=== PATIENT | male | born 1970 | race Caucasian/White ===

== ENCOUNTER 2018-06-23 12:34 | Inpatient (IN) ==
[2018-06-23 12:38] VITALS: BMI 32.8
[2018-06-23] MEDS ORDERED: ZOFRAN INJ 4 MG VIAL ONE ×2 (13:04→14:51)
[2018-06-23 13:07] LABS: BASOPHILS # (AUTO) 0.1 X10^3/uL (0.0-0.1); BASOPHILS % (AUTO) 0.7 % (0.2-1.0); EOSINOPHILS % (AUTO) 0.1 % (0.9-2.9); HEMATOCRIT 39.5 % (42.0-54.0); HEMOGLOBIN 13.5 g/dL (13.5-18.0); LYMPHOCYTES # (AUTO) 2.3 X10^3/uL (1.3-2.9); LYMPHOCYTES % (AUTO) 12.7 % (21.0-51.0); MEAN CORPUSCULAR HEMOGLOBIN 34.7 pg (27.0-34.0); MEAN CORPUSCULAR HGB CONC 34.2 g/dL (33.0-35.0); MEAN CORPUSCULAR VOLUME 101.3 fL (80.0-100.0); MEAN PLATELET VOLUME 8.9 fL (7.4-11.0); MONOCYTES # (AUTO) 0.6 x10^3/uL (0.3-0.8); MONOCYTES % (AUTO) 3.1 % (0.0-13.0); NEUTROPHILS # (AUTO) 15.2 x10^3/uL (2.2-4.8); NEUTROPHILS % (AUTO) 83.4 % (42.0-75.0); PLATELET COUNT 386 X10^3/uL (150.0-450.0); RED CELL DISTRIBUTION WIDTH 15.2 % (11.6-16.5); WHITE BLOOD COUNT 18.2 X10^3/uL (3.6-10.0)
[2018-06-23] MEDS ORDERED: NS 1000 ML 1,000 ML ONE (13:09)
[2018-06-23] MEDS ORDERED: NS 1000 ML 1,000 ML IV ONE (13:11)
[2018-06-23] MEDS: ZOFRAN INJ 4 MG VIAL IVP ONE (13:12)
--- NOTE | 2018-06-23 13:14 | RAD ---
Examination: Portable AP chest History: Chest pain Comparison 09/11/2012 Findings: Continued normal heart size with clear lungs and pleural spaces. Impression: No change; no acute findings. Reported By:
[2018-06-23 13:30] LABS: ALANINE AMINOTRANSFERASE 50 Units/L (12-78); ALBUMIN 3.1 g/dL (3.4-5.0); ALKALINE PHOSPHATASE 117 Units/L (46-116); AMYLASE 94 Units/L (25-115); ASPARTATE AMINO TRANSFERASE 29 Units/L (15-37); BLOOD UREA NITROGEN 28 mg/dL (7-18); CALCIUM 10.6 mg/dL (8.5-10.1); CHLORIDE 95 mmol/L (98-107); CKMB % 0.9 % (<4); COR CA(FOR HYPOALB) 11.3 mg/dL (8.5-10.1); COR NA(FOR HYPERGLY) 144 mmol/L (136-145); CREATINE KINASE 117 Units/L (39-308); CREATINE KINASE MB < 1.0 ng/mL (0-4.0); CREATININE 2.19 mg/dL (0.70-1.30); LIPASE 587 Units/L (73-393); SODIUM 137 mmol/L (136-145); TOTAL PROTEIN 8.5 g/dL (6.4-8.2); TROPONIN I < 0.02 ng/mL (0-1.5); eGFR NON BLACK RACES 35 (>60)
[2018-06-23 13:38] LABS: CARBON DIOXIDE 8.2 mmol/L (21-32)
[2018-06-23] MEDS ORDERED: SODIUM BICARBONATE 8.4% INJ ADULT IVP ONE (14:13)
--- NOTE | 2018-06-23 14:13 | DR.N/VMALE ---
HPI Time Seen Time seen: 12:55 Primary Care Physician Primary Care Physician: Rich ADDISON Complaints Chief Complaint Doctors Comments: Long standing, intermittent Rt. sided chest pain. It has worsened in past few (4) days. It is dull and sometimes sharp. It radiates through his upper back and RUQ. There is nausea and vomiting. It is exacerbated by assuming the supine position. It is not affected by meals. Chief Complaint:: PT. C/O RIGHT SIDED CHEST PAIN THAT RADIATES THROUGH TO HIS BACK, RUQ PAIN AND TENDERNESS. PT. ALSO C/O NAUSEA/VOMITING. PT. STATES THIS PAIN HAS BEEN GOING ON FOR A YEAR BUT IS MORE SEVERE. PT. ALSO C/O WEAKNESS. Source History Provided: Family Member Mode of Arrival Mode of Arrival: Wheelchair Timing Onset of Chief Complaint: 06/20/18 Context Onset: Spontaneous Recent: denies Travel and Contact Exposure Possible Ingestion: denies Unknown History of: Diabetes Associated Signs and Symptoms Abdominal Pain Quality: Aching and Sharp PMH PMH Past Medical History: Yes Past Medical History: Diabetes, GERD and Hypertension Past Surgical History: Yes Surgical History: Other Past Surgical History Comment: BACK SURGERY X 2 Family History History of Family Medical Conditions: Yes Family Medical History: Diabetes Mellitus, Cancer, [place], Coronary Artery Disease and Hypertension Social History Does patient currently use any type of tobacco product: No Have you used tobacco products in the last 12 months: No Type of Tobacco Use: None Does any household member use tobacco: No Alcohol Use: Occasionally Do you use any recreational Drugs:: No Lives With: Alone Lives Where: Home infectious screening In the last 2 months have you had wt loss of >10#?: NO Have you had fever, night sweats or hemotysis?: No Have you traveled outside the country in the last 6 months?: No Isolation: Standard ROS Review of Systems Constitutional: No Symptoms Reported Eyes: No Symptoms Reported ENTM: No Symptoms Reported Respiratoy: No Symptoms Reported Cardiovascular: No Symptoms Reported Gastrointestinal/Abdominal: Abdominal Pain (RUQ) and Nausea Genitourinary: No Symptoms Reported Neurological: No Symptoms Reported Musculoskeletal: Chest wall (Rt. side) Integumentary: No Symptoms Reported Hematologic/Lymphatic: No Symptoms Reported Endocrine: No Symptoms Reported Psychiatric: No Symptoms Reported All Other Systems: Reviewed and Negative PE Vital Signs Vitals: Temperature 97.9 F Pulse Rate [Left Brachial] 121 Pulse Rate 126 Respiratory Rate 22 Blood Pressure [Left Arm] 150/90 Blood Pressure 147/97 O2 Sat by Pulse Oximetry 100 General Limitations: Physical Limitation (can't assume supine position ) General Appearance: Alert, Anxious and In Distress (pain related) Head Head Exam: Normal Inspection Eyes Eye exam: Normal Appearance ENT ENT Exam: Normal Exam Neck Neck Exam: Normal Inspection Chest Chest Inspection: Normal Inspection, Symmetric Chest Wall Rise and Tenderness ( Medial aspect of Rt. lower chest.) Respiratory Respiratory Exam: Normal Lung Sounds Bilat Cardiovascular Cardiovascular Exam: Regular Rate, Normal Rhythm, +S1 and +S2 Abdominal Exam Abdominal Exam: Normal Inspection, Normal Bowel Sounds, Soft and Tenderness (RUQ ) Abdominal Tenderness: RUQ Rectal Rectal Exam: Deferred Exam: Male: Deferred Extremities Extremities Exam: Normal Inspection Back Back Exam: Normal Inspection Neurologic Neurological Exam: Alert and Oriented X3 Psychiatric Psychiatric Exam: Normal Affect Skin Skin Exam: Warm and Dry MDM Differential Diagnosis Differential Diagnosis: Considerations may Include:: Diabetes/DKA COURSE Reevaluation 1st: Improved ROR Labs Reviewed Result Diagrams: 06/23/18 12:57 06/23/18 18:55 Laboratory: WBC 18.2 X10^3/uL (3.6-10.0) H 06/23/18 12:57 RBC 3.90 X10^6/uL (4.7-6.0) L 06/23/18 12:57 Hgb 13.5 g/dL (13.5-18.0) 06/23/18 12:57 Hct 39.5 % (42.0-54.0) L 06/23/18 12:57 MCV 101.3 fL (80.0-100.0) H 06/23/18 12:57 MCH 34.7 pg (27.0-34.0) H 06/23/18 12:57 MCHC 34.2 g/dL (33.0-35.0) 06/23/18 12:57 RDW 15.2 % (11.6-16.5) 06/23/18 12:57 Plt Count 386 X10^3/uL (150.0-450.0) 06/23/18 12:57 MPV 8.9 fL (7.4-11.0) 06/23/18 12:57 Neut % (Auto) 83.4 % (42.0-75.0) H 06/23/18 12:57 Lymph % (Auto) 12.7 % (21.0-51.0) L 06/23/18 12:57 [place] % (Auto) 3.1 % (0.0-13.0) 06/23/18 12:57 Eos % (Auto) 0.1 % (0.9-2.9) L 06/23/18 12:57 Baso % (Auto) 0.7 % (0.2-1.0) 06/23/18 12:57 Neut # (Auto) 15.2 x10^3/uL (2.2-4.8) H 06/23/18 12:57 Lymph # (Auto) 2.3 X10^3/uL (1.3-2.9) 06/23/18 12:57 [place] # (Auto) 0.6 x10^3/uL (0.3-0.8) 06/23/18 12:57 Eos # (Auto) 0.0 x10^3/uL (0.0-0.2) 06/23/18 12:57 Baso # (Auto) 0.1 X10^3/uL (0.0-0.1) 06/23/18 12:57 Absolute Nucleated RBC 0.0 /100WBC 06/23/18 12:57 INR Target Range - 06/23/18 12:57 INR 0.98 (0.8-1.3) 06/23/18 12:57 APTT 25.7 SECONDS (22.9-36.5) 06/23/18 12:57 PTT Comment - 06/23/18 12:57 Sample Site rr 06/23/18 14:13 ABG pH 7.260 (7.35-7.45) L 06/23/18 14:13 ABG pCO2 16.0 mmHg (35.0-45.0) L* 06/23/18 14:13 ABG pO2 121.0 mmHg (80.0-100.0) H 06/23/18 14:13 ABG HCO3 7.2 mmol/L (22-26) L* 06/23/18 14:13 ABG O2 Saturation 98.0 % (90-100) 06/23/18 14:13 ABG Base Excess -17.5 mmol/L (-2.0-2.0) L 06/23/18 14:13 James Test pos 06/23/18 14:13 A-a Gradient 9.0 mmHg 06/23/18 14:13 FiO2 21.000 06/23/18 14:13 Blood Gas Comments pt marina abg well llj 06/23/18 14:13 Sodium 137 mmol/L (136-145) 06/23/18 12:57 Corrected Sodium 144 mmol/L (136-145) 06/23/18 12:57 Potassium 4.1 mmol/L (3.5-5.1) 06/23/18 12:57 Chloride 95 mmol/L (98-107) L 06/23/18 12:57 Carbon Dioxide 8.2 mmol/L (21-32) L* 06/23/18 12:57 BUN 28 mg/dL (7-18) H 06/23/18 12:57 Creatinine 2.19 mg/dL (0.70-1.30) H 06/23/18 12:57 Est GFR (MDRD) Af Amer 42 (>60) L 06/23/18 12:57 Est GFR (MDRD) Non-Af 35 (>60) L 06/23/18 12:57 Glucose 477 mg/dL (65-99) H 06/23/18 18:55 POC Glucose (mg/dL) 425 mg/dL (65-99) H* 06/23/18 18:44 Lactic Acid 1.7 mmol/L (0.4-2.0) 06/23/18 15:17 Calcium 10.6 mg/dL (8.5-10.1) H 06/23/18 12:57 Corrected Calcium 11.3 mg/dL (8.5-10.1) H 06/23/18 12:57 Total Bilirubin 0.50 mg/dL (0.2-1.0) 06/23/18 12:57 AST 29 Units/L (15-37) 06/23/18 12:57 ALT 50 Units/L (12-78) 06/23/18 12:57 Alkaline Phosphatase 117 Units/L (46-116) H 06/23/18 12:57 Creatine Kinase 117 Units/L (39-308) 06/23/18 12:57 CK-MB (CK-2) < 1.0 ng/mL (0-4.0) 06/23/18 12:57 CK/CKMB % Calc 0.9 % (<4) 06/23/18 12:57 Troponin I < 0.02 ng/mL (0-1.5) 06/23/18 12:57 Total Protein 8.5 g/dL (6.4-8.2) H 06/23/18 12:57 Albumin 3.1 g/dL (3.4-5.0) L 06/23/18 12:57 Globulin 5.4 g/dL (2.5-4.5) H 06/23/18 12:57 Albumin/Globulin Ratio 0.6 Ratio (1.1-2.1) L 06/23/18 12:57 Amylase 94 Units/L (25-115) 06/23/18 12:57 Lipase 587 Units/L (73-393) H 06/23/18 12:57 Specimen Type Clean catch urine 06/23/18 15:12 Urine Color Yellow (YELLOW) 06/23/18 15:12 Urine Appearance Slightly hazy (CLEAR) 06/23/18 15:12 Urine pH 6.0 (5.0 - 8.0) 06/23/18 15:12 Ur Specific [place] 1.015 (1.000-1.030) 06/23/18 15:12 Urine Protein 4+ (NEGATIVE) 06/23/18 15:12 Urine Glucose (UA) 3+ (NEGATIVE) 06/23/18 15:12 Urine Ketones 4+ (NEGATIVE) 06/23/18 15:12 Urine Occult Blood 2+ (NEGATIVE) 06/23/18 15:12 Urine Nitrite Negative (NEGATIVE) 06/23/18 15:12 Urine Bilirubin 1+ (NEGATIVE) 06/23/18 15:12 Urine Urobilinogen Normal (NORMAL) 06/23/18 15:12 Ur Leukocyte Esterase Negative (NEGATIVE) 06/23/18 15:12 Urine RBC 0-2 /HPF (NONE SEEN) 06/23/18 15:12 Urine WBC 0-2 /HPF (NONE SEEN) 06/23/18 15:12 Ur Squamous Epith Cells Rare /HPF (NEGATIVE) 06/23/18 15:12 Urine Bacteria Negative /HPF (NEGATIVE) 06/23/18 15:12 Hyaline Casts Moderate /LPF (NEGATIVE) 06/23/18 15:12 Granular Casts Rare /LPF (NEGATIVE) 06/23/18 15:12 Ur Culture Indicated? No/not indicated 06/23/18 15:12 Acetone, Semi-Quant Moderate (NEGATIVE) H 06/23/18 12:57 H. pylori IgG Antibody Negative (NEGATIVE) 06/23/18 12:57 EKG Rate: 131 [place]: Normal Rhythm: ST Block: None Hypertrophy: None ST: Normal Diagnosis Discharge Problem: Abdominal pain, Nausea & vomiting, DKA (diabetic ketoacidoses)
[2018-06-23] MEDS ORDERED: SODIUM BICARBONATE 8.4% INJ ADULT ONE (14:24)
[2018-06-23 14:33] LABS: ABG BASE EXCESS -17.5 mmol/L (-2.0-2.0)
--- NOTE | 2018-06-23 14:34 | CT ---
History: Right flank pain and nausea and vomiting Study: CT abdomen and pelvis without contrast. Sagittal and coronal reformations were provided. Comparison: None Findings: There is a small hiatal hernia. The liver and spleen and pancreas and adrenal glands are un remarkable. There is no hydronephrosis or renal mass or renal calculus demonstrated. The pancreas is atrophic. No ureteral calculus is demonstrated. The gallbladder is contracted. There is no biliary di latation. There is no ascites or adenopathy or bowel distention or inflammatory changes. The urinary bladder is unremarkable. No hernia is demonstrated. There has been a total lower lumbar laminectomy a nd anterior and L4-5 and L5-S1 fusion in anatomical alignment. Impression: No acute disease of the abdomen or pelvis is demonstrated Reported By:
[2018-06-23 14:35] LABS: ABG ALLEN TEST pos; ABG HCO3 7.2 mmol/L (22-26)
[2018-06-23] MEDS ORDERED: ZOFRAN INJ 4 MG VIAL IVP ONE (14:53)
[2018-06-23] MEDS ORDERED: ZOSYN VIAL 2.25 GRAMS IV STA (15:01)
[2018-06-23 15:32] LABS: BILIRUBIN,URINE 1+ (NEGATIVE); BLOOD/HEMOGLOBIN,URINE 2+ (NEGATIVE); GLUCOSE, URINE 3+ (NEGATIVE); KETONES,URINE 4+ (NEGATIVE); LEUKOCYTE ESTERASE ,URINE NEGATIVE (NEGATIVE); NITRITES,URINE NEGATIVE (NEGATIVE); PROTEIN,URINE 4+ (NEGATIVE); UROBILINOGEN,URINE NORMAL (NORMAL)
[2018-06-23 15:43] LABS: APPEARANCE,URINE SLIGHTLY HAZY (CLEAR); COLOR,URINE YELLOW (YELLOW)
[2018-06-23 15:44] LABS: BACTERIA,URINE NEGATIVE /HPF (NEGATIVE); GRANULAR CASTS,URINE RARE /LPF (NEGATIVE); HYALINE CASTS, URINE MODERATE /LPF (NEGATIVE); RBC,URINE 0-2 /HPF (NONE SEEN); SQUAMOUS EPITHELIAL CELL,UR RARE /HPF (NEGATIVE)
[2018-06-23] MEDS ORDERED: SODIUM BICARBONATE 8.4% INJ ADULT 50 ML in NS 1/2 500 ML IV 500 ML IV ONE (16:00)
--- NOTE | 2018-06-23 16:17 | CT ---
CT chest without contrast Indication: Chest pain. Technique: Noncontrast multiplanar and 3D reconstructed images with MIP imaging are reviewed Findings: Comparison no cross-sectional comparisons are available. The aortic arch and great vessels demonstrate minimal atherosclerosis. The mediastinum is negative for adenopathy. There is esophageal wall thickening involving the mid and distal esophagus correlate with reflux related changes. The gastric lumen is mildly distended. The lungs are well expanded with no focal infiltrate effusion or pneumothorax. There is no venous con gestion present. The exam is negative for aneurysmal changes. There is no acute pathology of the [place]. Impression: 1. Negative exam for active cardiopulmonary pathology . 2. Thickened lumen of the esophag us. Correlate with esophagitis and/or reflux related changes. Small hiatal hernia is present. Reported By:
[2018-06-23] MEDS ORDERED: DILAUDID INJ IVP ONE (16:18)
[2018-06-23] MEDS ORDERED: DILAUDID INJ ONE (16:20)
[2018-06-23] MEDS ORDERED: HumuLIN R SC PRN (17:33)
[2018-06-23] MEDS ORDERED: LR 1000 ML IV 1,000 ML IV SCH (18:00)
[2018-06-23] MEDS: COLACE CAP 100 MG PO SCH (20:50)
[2018-06-23] MEDS: KLONOPIN TAB 1 MG PO SCH (20:51)
[2018-06-23] MEDS: SNACK - Diabetic Appropriate PO SCH (20:51)
[2018-06-23] MEDS: COREG TAB 25 MG PO SCH (20:51)
[2018-06-23] MEDS ORDERED: HumuLIN R SUBCUT PRN (20:53)
[2018-06-23] MEDS ORDERED: D5 1/2 NS + KCL 20 MEQ/L 1,000 ML IV PRN (20:53)
[2018-06-23] MEDS ORDERED: SODIUM BICARBONATE 8.4% INJ ADULT IVP PRN (20:53)
[2018-06-23] MEDS ORDERED: MAGNESIUM SULFATE 1 GRAM/100 mL PREMIX 2 GM/200 ML BAG IV PRN (20:53)
[2018-06-23] MEDS: DILAUDID INJ IVP PRN (20:53)
[2018-06-23] MEDS ORDERED: D50W ABBOJECT SYR IV PRN (20:53)
[2018-06-23] MEDS ORDERED: NS + KCL 40 MEQ/L 1,000 ML IV PRN (20:53)
[2018-06-23] MEDS ORDERED: HumuLIN R IV PRN (20:53)
[2018-06-23 21:17] LABS: MAGNESIUM 1.7 mg/dL (1.7-2.9); PHOSPHORUS 5.5 mg/dL (2.6-4.7)
[2018-06-23 21:18] LABS: HEMOGLOBIN A1C 7.5 %
[2018-06-23] MEDS: MAG-OX TAB PO SCH (21:50)
[2018-06-23] MEDS: ZOSYN VIAL 2.25 GRAMS 2.25 G in NS 100 ML IV + SPIKE MINIBAG* 100 ML IV SCH (21:50)
[2018-06-23 21:54] LABS: ABG BASE EXCESS -15.1 mmol/L (-2.0-2.0)
[2018-06-23 21:55] LABS: ABG ALLEN TEST POS; ABG HCO3 10.9 mmol/L (22-26)
[2018-06-23] MEDS ORDERED: HumuLIN 70/30 (NovoLIN 70/30) SC SCH (22:00)
[2018-06-23] MEDS: NS 1000 ML 1,000 ML IV PRN ×2 (22:07→23:01)
[2018-06-23] MEDS: MAGNESIUM SULFATE 1 GRAM/100 mL PREMIX 1 GM/100 ML BAG IV PRN (22:15)
[2018-06-23 23:05] LABS: CALCIUM 8.9 mg/dL (8.5-10.1); CREATININE 3.32 mg/dL (0.70-1.30)
[2018-06-23 23:11] LABS: CARBON DIOXIDE 11.5 mmol/L (21-32)
[2018-06-23] MEDS ORDERED: NS + KCL 20 MEQ/L 1,000 ML IV SCH (23:45)
[2018-06-24] MEDS: NS 1000 ML 1,000 ML IV PRN ×8 (00:05→08:08)
[2018-06-24] MEDS: DILAUDID INJ IVP PRN ×2 (00:51→05:23)
[2018-06-24] MEDS ORDERED: NS IRRIGATION 500 ML IR ONE (01:56)
[2018-06-24] MEDS: NS 1000 ML 1,000 ML IV SCH ×3 (02:20→15:46)
[2018-06-24 02:49] LABS: CALCIUM 7.8 mg/dL (8.5-10.1); CARBON DIOXIDE 18.1 mmol/L (21-32); CREATININE 3.43 mg/dL (0.70-1.30)
[2018-06-24] MEDS: K-RIDER 10 MEQ/NS 100 ML 10 MEQ/100 ML BAG IV PRN ×5 (03:27→21:05)
[2018-06-24 05:29] LABS: ABG BASE EXCESS -10.9 mmol/L (-2.0-2.0)
[2018-06-24 05:30] LABS: ABG ALLEN TEST POS; ABG HCO3 17.5 mmol/L (22-26)
[2018-06-24] MEDS: ZOSYN VIAL 2.25 GRAMS 2.25 G in NS 100 ML IV + SPIKE MINIBAG* 100 ML IV SCH ×3 (06:11→21:09)
[2018-06-24] MEDS: MAG-OX TAB PO SCH ×3 (06:11→21:09)
[2018-06-24 06:25] LABS: BASOPHILS # (AUTO) 0.1 X10^3/uL (0.0-0.1); BASOPHILS % (AUTO) 0.7 % (0.2-1.0); EOSINOPHILS # (AUTO) 0.1 x10^3/uL (0.0-0.2); EOSINOPHILS % (AUTO) 0.8 % (0.9-2.9); HEMATOCRIT 29.2 % (42.0-54.0); LYMPHOCYTES # (AUTO) 1.3 X10^3/uL (1.3-2.9); LYMPHOCYTES % (AUTO) 8.7 % (21.0-51.0); MEAN CORPUSCULAR HEMOGLOBIN 34.1 pg (27.0-34.0); MEAN CORPUSCULAR HGB CONC 33.9 g/dL (33.0-35.0); MEAN CORPUSCULAR VOLUME 100.7 fL (80.0-100.0); MEAN PLATELET VOLUME 8.6 fL (7.4-11.0); MONOCYTES % (AUTO) 7.3 % (0.0-13.0); NEUTROPHILS # (AUTO) 11.9 x10^3/uL (2.2-4.8); NEUTROPHILS % (AUTO) 82.5 % (42.0-75.0); PLATELET COUNT 264 X10^3/uL (150.0-450.0); RED CELL DISTRIBUTION WIDTH 15.4 % (11.6-16.5); WHITE BLOOD COUNT 14.5 X10^3/uL (3.6-10.0)
[2018-06-24 06:27] LABS: HEMOGLOBIN 9.9 g/dL (13.5-18.0)
[2018-06-24 06:43] LABS: ALBUMIN 2.4 g/dL (3.4-5.0); CALCIUM 7.1 mg/dL (8.5-10.1); CARBON DIOXIDE 17.7 mmol/L (21-32); COR CA(FOR HYPOALB) 8.4 mg/dL (8.5-10.1); CREATININE 3.27 mg/dL (0.70-1.30); MAGNESIUM 1.6 mg/dL (1.7-2.9); PHOSPHORUS 2.1 mg/dL (2.6-4.7); TOTAL PROTEIN 6.2 g/dL (6.4-8.2)
[2018-06-24] MEDS: MILK OF MAGNESIA PO SCH (08:00)
[2018-06-24] MEDS: SYNTHROID 25 mcg TAB PO SCH (08:03)
[2018-06-24] MEDS: PROTONIX TAB 40 MG PO SCH (08:03)
--- NOTE | 2018-06-24 08:17 | US ---
History: Right flank pain with nausea and vomiting Study: Ultrasound of the right upper quadrant of the abdomen Comparison: CT abdomen and pelvis dated June 23 Findings: The gallbladder is normal in size without wall thickening or stone or sludge. The common he patic duct measures 3.4 mm diameter. There is fatty infiltration of the liver. No focal liver mass or enlargement is demonstrated. The right kidney measures 10 x 7 x 6 cm with cortical thickness of 1.7 cm. There is no right hydronep hrosis or mass. No free fluid is demonstrated. The pancreas is obscured by gas. Impression: Negative Reported By:
[2018-06-24] MEDS: MAGNESIUM SULFATE 1 GRAM/100 mL PREMIX 1 GM/100 ML BAG IV PRN (08:26)
[2018-06-24] MEDS: ZOCOR TAB 20 MG PO SCH (08:26)
[2018-06-24] MEDS ORDERED: NS 1/2 1000 ML IV 1,000 ML IV ONE (09:38)
[2018-06-24] MEDS ORDERED: LASIX ONE (09:49)
[2018-06-24] MEDS ORDERED: LASIX IVP ONE (09:50)
[2018-06-24] MEDS ORDERED: NORCO 10/325 TAB ONE (10:01)
[2018-06-24] MEDS: COREG TAB 25 MG PO SCH ×2 (10:05→20:34)
[2018-06-24] MEDS ORDERED: NS 1/2 1000 ML IV 1,000 ML with SODIUM BICARBONATE 8.4% INJ ADULT 100 ML IV ONE ×2 (10:05)
[2018-06-24] MEDS: NORCO 10/325 TAB PO PRN ×3 (10:06→23:15)
[2018-06-24] MEDS: NORVASC TAB 10 MG PO SCH (10:18)
[2018-06-24] MEDS: ZESTRIL TAB 40 MG PO SCH (10:18)
[2018-06-24 10:39] LABS: CALCIUM 6.6 mg/dL (8.5-10.1); CREATININE 3.24 mg/dL (0.70-1.30)
[2018-06-24 10:45] LABS: CARBON DIOXIDE 14.4 mmol/L (21-32)
[2018-06-24] MEDS ORDERED: ZOFRAN INJ 4 MG VIAL ONE (13:16)
[2018-06-24] MEDS: ZOFRAN INJ 4 MG VIAL IVP ONE (13:32)
[2018-06-24 14:16] LABS: CALCIUM 6.5 mg/dL (8.5-10.1)
[2018-06-24] MEDS: PHENERGAN INJ 25 MG IVP PRN ×2 (14:34→21:05)
[2018-06-24 18:31] LABS: CALCIUM 6.5 mg/dL (8.5-10.1); CARBON DIOXIDE 16.6 mmol/L (21-32); CREATININE 2.8 mg/dL (0.70-1.30)
[2018-06-24] MEDS: SNACK - Diabetic Appropriate PO SCH (20:34)
[2018-06-24] MEDS: COLACE CAP 100 MG PO SCH (20:34)
[2018-06-24] MEDS: KLONOPIN TAB 1 MG PO SCH (20:35)
[2018-06-25] MEDS: NS 1000 ML 1,000 ML IV SCH ×5 (00:14→16:58)
[2018-06-25 01:29] LABS: CALCIUM 6.4 mg/dL (8.5-10.1); CREATININE 2.75 mg/dL (0.70-1.30)
[2018-06-25 01:30] LABS: CARBON DIOXIDE 12.7 mmol/L (21-32)
[2018-06-25] MEDS: ZOSYN VIAL 2.25 GRAMS 2.25 G in NS 100 ML IV + SPIKE MINIBAG* 100 ML IV SCH (05:22)
[2018-06-25] MEDS: NORCO 10/325 TAB PO PRN ×2 (05:22→19:25)
[2018-06-25] MEDS: MAG-OX TAB PO SCH ×3 (05:22→21:13)
[2018-06-25] MEDS: HumuLIN R SC PRN ×4 (05:23→22:00)
[2018-06-25 05:49] LABS: ABG BASE EXCESS -16.1 mmol/L (-2.0-2.0)
[2018-06-25 05:51] LABS: ABG ALLEN TEST POS; ABG HCO3 9.6 mmol/L (22-26)
[2018-06-25] MEDS: PHENERGAN INJ 25 MG IVP PRN ×2 (06:29→20:17)
[2018-06-25 06:36] LABS: BASOPHILS # (AUTO) 0.1 X10^3/uL (0.0-0.1); BASOPHILS % (AUTO) 0.5 % (0.2-1.0); EOSINOPHILS # (AUTO) 0.2 x10^3/uL (0.0-0.2); HEMATOCRIT 30.5 % (42.0-54.0); HEMOGLOBIN 10.3 g/dL (13.5-18.0); LYMPHOCYTES # (AUTO) 1.5 X10^3/uL (1.3-2.9); LYMPHOCYTES % (AUTO) 10.1 % (21.0-51.0); MEAN CORPUSCULAR HEMOGLOBIN 34.3 pg (27.0-34.0); MEAN CORPUSCULAR HGB CONC 33.9 g/dL (33.0-35.0); MEAN CORPUSCULAR VOLUME 101.4 fL (80.0-100.0); MEAN PLATELET VOLUME 8.9 fL (7.4-11.0); MONOCYTES # (AUTO) 0.9 x10^3/uL (0.3-0.8); MONOCYTES % (AUTO) 5.9 % (0.0-13.0); NEUTROPHILS # (AUTO) 12.4 x10^3/uL (2.2-4.8); NEUTROPHILS % (AUTO) 82.5 % (42.0-75.0); PLATELET COUNT 228 X10^3/uL (150.0-450.0); RED CELL DISTRIBUTION WIDTH 15.6 % (11.6-16.5); WHITE BLOOD COUNT 15.1 X10^3/uL (3.6-10.0)
[2018-06-25 06:52] LABS: CALCIUM 6.7 mg/dL (8.5-10.1); COR CA(FOR HYPOALB) 8.3 mg/dL (8.5-10.1); CREATININE 2.67 mg/dL (0.70-1.30); TOTAL PROTEIN 6.2 g/dL (6.4-8.2)
[2018-06-25 06:58] LABS: CARBON DIOXIDE 11.2 mmol/L (21-32)
[2018-06-25 07:05] LABS: MAGNESIUM 1.6 mg/dL (1.7-2.9); PHOSPHORUS 2.5 mg/dL (2.6-4.7)
[2018-06-25 07:13] LABS: AMYLASE 27 Units/L (25-115); LIPASE 87 Units/L (73-393)
[2018-06-25] MEDS ORDERED: SODIUM BICARBONATE 8.4% INJ ADULT IVP ONE (08:00)
[2018-06-25] MEDS: COREG TAB 25 MG PO SCH ×2 (08:10→21:13)
[2018-06-25] MEDS: SYNTHROID 25 mcg TAB PO SCH (08:10)
[2018-06-25] MEDS: NORVASC TAB 10 MG PO SCH (08:11)
[2018-06-25] MEDS: ZOCOR TAB 20 MG PO SCH (08:11)
[2018-06-25] MEDS: PROTONIX TAB 40 MG PO SCH (08:11)
[2018-06-25] MEDS: ZESTRIL TAB 40 MG PO SCH (08:12)
[2018-06-25] MEDS: MILK OF MAGNESIA PO SCH ×2 (10:22→18:00)
[2018-06-25] MEDS ORDERED: LASIX IVP ONE (13:34)
[2018-06-25] MEDS: COLACE CAP 100 MG PO SCH (21:13)
[2018-06-25] MEDS: KLONOPIN TAB 1 MG PO SCH (21:14)
[2018-06-26] MEDS: NS 1000 ML 1,000 ML IV SCH ×6 (00:36→22:26)
[2018-06-26] MEDS: HumuLIN R SC PRN ×4 (02:09→22:24)
[2018-06-26 05:47] LABS: ABG ALLEN TEST POS; ABG BASE EXCESS -5.1 mmol/L (-2.0-2.0); ABG HCO3 19.9 mmol/L (22-26)
[2018-06-26] MEDS: SYNTHROID 25 mcg TAB PO SCH (06:07)
[2018-06-26] MEDS: MAG-OX TAB PO SCH ×3 (06:07→22:25)
[2018-06-26] MEDS: COREG TAB 25 MG PO SCH ×2 (08:32→22:25)
[2018-06-26] MEDS: NORVASC TAB 10 MG PO SCH (08:32)
[2018-06-26] MEDS: PROTONIX TAB 40 MG PO SCH (08:32)
[2018-06-26] MEDS: MILK OF MAGNESIA PO SCH (08:32)
[2018-06-26] MEDS: PHENERGAN INJ 25 MG IVP PRN ×2 (09:05→15:22)
[2018-06-26 09:16] LABS: BASOPHILS # (AUTO) 0.1 X10^3/uL (0.0-0.1); BASOPHILS % (AUTO) 0.6 % (0.2-1.0); EOSINOPHILS # (AUTO) 0.5 x10^3/uL (0.0-0.2); EOSINOPHILS % (AUTO) 5.3 % (0.9-2.9); HEMOGLOBIN 9.1 g/dL (13.5-18.0); LYMPHOCYTES # (AUTO) 1.4 X10^3/uL (1.3-2.9); MEAN CORPUSCULAR HEMOGLOBIN 34.7 pg (27.0-34.0); MEAN CORPUSCULAR HGB CONC 35.2 g/dL (33.0-35.0); MEAN CORPUSCULAR VOLUME 98.7 fL (80.0-100.0); MEAN PLATELET VOLUME 9.2 fL (7.4-11.0); MONOCYTES # (AUTO) 0.7 x10^3/uL (0.3-0.8); MONOCYTES % (AUTO) 6.7 % (0.0-13.0); NEUTROPHILS # (AUTO) 7.2 x10^3/uL (2.2-4.8); NEUTROPHILS % (AUTO) 73.4 % (42.0-75.0); PLATELET COUNT 227 X10^3/uL (150.0-450.0); RED BLOOD COUNT 2.63 X10^6/uL (4.7-6.0); RED CELL DISTRIBUTION WIDTH 15.5 % (11.6-16.5); WHITE BLOOD COUNT 9.8 X10^3/uL (3.6-10.0)
[2018-06-26 09:21] LABS: ALBUMIN 1.9 g/dL (3.4-5.0); CALCIUM 6.9 mg/dL (8.5-10.1); CARBON DIOXIDE 19.9 mmol/L (21-32); COR CA(FOR HYPOALB) 8.6 mg/dL (8.5-10.1); CREATININE 1.93 mg/dL (0.70-1.30); TOTAL PROTEIN 5.9 g/dL (6.4-8.2)
[2018-06-26 09:33] LABS: AMYLASE 18 Units/L (25-115); LIPASE 77 Units/L (73-393)
[2018-06-26] MEDS ORDERED: ZESTRIL TAB 20 MG ONE (10:10)
[2018-06-26] MEDS: ZESTRIL TAB 20 MG PO SCH (10:13)
[2018-06-26] MEDS ORDERED: K-DUR TAB 20 MEQ PO SCH (11:00)
[2018-06-26] MEDS ORDERED: ZOFRAN INJ 4 MG VIAL 16 MG, ATIVAN INJ 2 MG VIAL 1 MG, DECADRON INJ 10 MG in NS 50 ML I... IV ONE (13:00)
[2018-06-26] MEDS: NORCO 10/325 TAB PO PRN ×2 (15:54→22:31)
[2018-06-26] MEDS ORDERED: K-DUR TAB 20 MEQ PO ONE (21:00)
[2018-06-26] MEDS: KLONOPIN TAB 1 MG PO SCH (22:25)
[2018-06-26] MEDS: COLACE CAP 100 MG PO SCH (22:26)
[2018-06-26] MEDS ORDERED: PHENERGAN TAB 25 MG PO ONE (22:45)
[2018-06-27 05:25] LABS: ABG BASE EXCESS -12.8 mmol/L (-2.0-2.0)
[2018-06-27 05:26] LABS: ABG ALLEN TEST POS; ABG HCO3 11.6 mmol/L (22-26)
[2018-06-27] MEDS: MAG-OX TAB PO SCH (05:51)
[2018-06-27] MEDS: NORCO 10/325 TAB PO PRN (05:52)
[2018-06-27] MEDS: HumuLIN R SC PRN (05:53)
[2018-06-27] MEDS: SYNTHROID 25 mcg TAB PO SCH (06:00)
[2018-06-27 06:37] LABS: BASOPHILS % (AUTO) 0.4 % (0.2-1.0); HEMATOCRIT 27.1 % (42.0-54.0); HEMOGLOBIN 9.4 g/dL (13.5-18.0); LYMPHOCYTES # (AUTO) 0.6 X10^3/uL (1.3-2.9); LYMPHOCYTES % (AUTO) 7.3 % (21.0-51.0); MEAN CORPUSCULAR HEMOGLOBIN 34.5 pg (27.0-34.0); MEAN CORPUSCULAR HGB CONC 34.5 g/dL (33.0-35.0); MEAN PLATELET VOLUME 9.3 fL (7.4-11.0); MONOCYTES # (AUTO) 0.3 x10^3/uL (0.3-0.8); MONOCYTES % (AUTO) 3.7 % (0.0-13.0); NEUTROPHILS # (AUTO) 7.8 x10^3/uL (2.2-4.8); NEUTROPHILS % (AUTO) 88.6 % (42.0-75.0); PLATELET COUNT 260 X10^3/uL (150.0-450.0); RED BLOOD COUNT 2.71 X10^6/uL (4.7-6.0); RED CELL DISTRIBUTION WIDTH 15.1 % (11.6-16.5); WHITE BLOOD COUNT 8.8 X10^3/uL (3.6-10.0)
[2018-06-27 06:55] LABS: CALCIUM 7.6 mg/dL (8.5-10.1); COR CA(FOR HYPOALB) 9.2 mg/dL (8.5-10.1); CREATININE 1.72 mg/dL (0.70-1.30); MAGNESIUM 1.9 mg/dL (1.7-2.9); TOTAL PROTEIN 6.3 g/dL (6.4-8.2)
[2018-06-27 07:04] LABS: CARBON DIOXIDE 11.4 mmol/L (21-32)
[2018-06-27] MEDS ORDERED: ZESTRIL TAB 20 MG ONE (08:38)
[2018-06-27] MEDS: PROTONIX TAB 40 MG PO SCH (08:54)
[2018-06-27] MEDS: NORVASC TAB 10 MG PO SCH (08:54)
[2018-06-27] MEDS: COREG TAB 25 MG PO SCH (08:54)
[2018-06-27] MEDS: ZESTRIL TAB 20 MG PO SCH (08:54)
[2018-06-27] MEDS: MILK OF MAGNESIA PO SCH (08:54)
[2018-06-27 10:34] VITALS: BP 178/86
== END 2018-06-27 11:00 | disposition home or self-care (01) | DRG 682 ==
LOC: ER 12:50 → MED/SURG 17:19 → ICU 20:53
PROVIDERS: ADMIT Obstetrics & Gynecology Obstetrics; ATTEND Obstetrics & Gynecology Obstetrics
DX: I12.9 Hypertensive chronic kidney disease with stage 1 through stage 4 chronic kidney disease, or unspecified chronic kidney disease; R26.89 Other abnormalities of gait and mobility; N18.9 Chronic kidney disease, unspecified; R11.2 Nausea with vomiting, unspecified; E87.2 Acidosis; K21.9 Gastro-esophageal reflux disease without esophagitis; E86.0 Dehydration; N17.8 Other acute kidney failure; R10.11 Right upper quadrant pain; M54.5 Low back pain; K85.80 Other acute pancreatitis without necrosis or infection; R94.31 Abnormal electrocardiogram [ECG] [EKG]
CPT/HCPCS: 36415; 36600; 71010; 71045; 71250; 74176; 76705; 80048; 80053; 81001; 82009; 82150; 82550; 82553; 82803; 82947; 83036; 83605; 83690; 83735; 84100; 84484; 85025; 85610; 85730; 86677; 87040; 93005; 93010; 96365; 96367; 96374; 96375; 97162; 99284; A4222; Q0169; J1100; J1170; J1815; J1940; J2060; J2405; J2543; J2550; J3475; J3480; J3490; J7030; J7050

== ENCOUNTER 2022-05-20 08:50 | Observation (INO) ==
--- NOTE | 2022-05-20 09:12 | DR.GENAD ---
HPI Time Seen Time Seen by Provider: 05/20/22 09:00 HPI Comment HPI Comment: A 52 y/o male presenting with "c/o my sugar is high." He is a poor historian. I got out of him that he is hurting all over. Nurses notes reviewed Nurses Notes Review: Yes Source History Provided: Patient Mode of Arrival Mode of Arrival: Ambulatory Timing Came on: Gradually PMH PMH Past Medical History: CHF, Coronary Artery Disease (s/p Angioplasty with stents), Diabetes, GERD and Hypertension Past Surgical History: Yes Surgical History: Ortho Surgery and Other Family History Family Medical History: Diabetes Mellitus, Cancer, [place], Coronary Artery Disease and Hypertension Social History Do you use any recreational Drugs:: No ROS Review of Systems Constitutional: No Symptoms Reported Eyes: No Symptoms Reported ENTM: No Symptoms Reported Respiratoy: No Symptoms Reported Cardiovascular: No Symptoms Reported Gastrointestinal/Abdominal: No Symptoms Reported Genitourinary: No Symptoms Reported Neurological: No Symptoms Reported Musculoskeletal: No Symptoms Reported Integumentary: No Symptoms Reported Hematologic/Lymphatic: No Symptoms Reported Endocrine: No Symptoms Reported Psychiatric: No Symptoms Reported PE Vital Signs Vitals: Temperature 98.0 F Pulse Rate 88 Respiratory Rate 28 Blood Pressure [Left Arm] 115/62 Blood Pressure 142/81 O2 Sat by Pulse Oximetry 93 General Limitations: No Limitations General Appearance: Alert and In No Apparent Distress Head Head Exam: Normal Inspection, Atraumatic and Normocephalic Eyes Eye exam: Normal Appearance and EOMI ENT ENT Exam: Normal Exam, Normal Oropharynx, Normal External Ear Exam and Mucous Membranes Moist Neck Neck Exam: Normal Inspection, Full ROM and Trachea Midline Chest Chest Inspection: Normal Inspection and Symmetric Chest Wall Rise Respiratory Respiratory Exam: Normal Lung Sounds Bilat Cardiovascular Cardiovascular Exam: Regular Rate, Normal Rhythm, Normal Heart Sounds, +S1 and +S2 Abdominal Exam Abdominal Exam: Normal Inspection, Normal Bowel Sounds and Soft Extremities Extremities Exam: Normal Capillary Refill and Edema (2+ to legs); negative Normal Inspection, Full ROM, Tenderness, Joint Swelling and Calf Tenderness Back Back Exam: Normal Inspection and Full ROM Neurologic Neurological Exam: Alert and Oriented X3 Psychiatric Psychiatric Exam: Normal Affect and Normal Mood Skin Skin Exam: Intact COURSE Treatment Treatment: His lab. results were reviewed with him. I spoke with astronomy teacher physician with recommendation for in-house treatment. That was agreed to and admit orders were written. Reevaluation 1st: Improved (He has put out 600 ml of urine in response to the Lasix ch allenge. ) Education/Counseling Education/Counseling: Patient, Education and Counseling Educated On: Treatment, Diagnosis, Prognosis and Needs for Follow Up ROR Labs Reviewed Result Diagrams: 05/20/22 09:05 05/20/22 09:05 Laboratory: WBC 11.6 X10^3/uL (3.6-10.0) H 05/20/22 09:05 RBC 3.21 X10^6/uL (4.7-6.0) L 05/20/22 09:05 Hgb 10.8 g/dL (13.5-18.0) L 05/20/22 09:05 Hct 31.5 % (42.0-54.0) L 05/20/22 09:05 MCV 98.0 fL (80.0-100.0) 05/20/22 09:05 MCH 33.7 pg (27.0-34.0) 05/20/22 09:05 MCHC 34.4 g/dL (33.0-35.0) 05/20/22 09:05 RDW 14.5 % (11.6-16.5) 05/20/22 09:05 Plt Count 408 X10^3/uL (150.0-450.0) 05/20/22 09:05 MPV 7.1 fL (7.4-11.0) L 05/20/22 09:05 Neut % (Auto) 78.8 % (42.0-75.0) H 05/20/22 09:05 Lymph % (Auto) 11.8 % (21.0-51.0) L 05/20/22 09:05 [place] % (Auto) 7.2 % (0.0-13.0) 05/20/22 09:05 Eos % (Auto) 0.9 % (0.9-2.9) 05/20/22 09:05 Baso % (Auto) 1.3 % (0.2-1.0) H 05/20/22 09:05 Neut # (Auto) 9.1 x10^3/uL (2.2-4.8) H 05/20/22 09:05 Lymph # (Auto) 1.4 X10^3/uL (1.3-2.9) 05/20/22 09:05 [place] # (Auto) 0.8 x10^3/uL (0.3-0.8) 05/20/22 09:05 Eos # (Auto) 0.1 x10^3/uL (0.0-0.2) 05/20/22 09:05 Baso # (Auto) 0.2 X10^3/uL (0.0-0.1) H 05/20/22 09:05 Absolute Nucleated RBC 0.0 /100WBC 05/20/22 09:05 Sodium 115 mmol/L (136-145) L* 05/20/22 09:05 Corrected Sodium 123 mmol/L (136-145) L 05/20/22 09:05 Potassium 5.8 mmol/L (3.5-5.1) H 05/20/22 09:05 Chloride 85 mmol/L (98-107) L 05/20/22 09:05 Carbon Dioxide 19.7 mmol/L (21-32) L 05/20/22 09:05 BUN 26 mg/dL (7-18) H 05/20/22 09:05 Creatinine 1.44 mg/dL (0.70-1.30) H 05/20/22 09:05 Est GFR (MDRD) Af Amer > 60 (>60) 05/20/22 09:05 Est GFR (MDRD) Non-Af 55 (>60) L 05/20/22 09:05 Glucose 431 mg/dL (65-99) H 05/20/22 09:05 Calcium 8.3 mg/dL (8.5-10.1) L 05/20/22 09:05 Corrected Calcium 8.9 mg/dL (8.5-10.1) 05/20/22 09:05 Total Bilirubin 0.20 mg/dL (0.2-1.0) 05/20/22 09:05 AST 15 Units/L (15-37) 05/20/22 09:05 ALT 32 Units/L (12-78) 05/20/22 09:05 Alkaline Phosphatase 126 Units/L (46-116) H 05/20/22 09:05 Creatine Kinase 95 Units/L (39-308) 05/20/22 09:05 CK-MB (CK-2) 2.4 ng/mL (0-4.0) 05/20/22 09:05 CK/CKMB % Calc 2.5 % (<4) 05/20/22 09:05 Troponin I High Sens 14.1 ng/L (4.0-60.0) 05/20/22 09:05 B-Natriuretic Peptide 575 pg/mL (0-79) H* 05/20/22 09:05 Total Protein 7.4 g/dL (6.4-8.2) 05/20/22 09:05 Albumin 3.2 g/dL (3.4-5.0) L 05/20/22 09:05 Globulin 4.2 g/dL (2.5-4.5) 05/20/22 09:05 Albumin/Globulin Ratio 0.8 Ratio (1.1-2.1) L 05/20/22 09:05 Acetone, Semi-Quant Negative (NEGATIVE) 05/20/22 09:05 SARS-CoV-2 (PCR) Negative (NEGATIVE) 05/20/22 10:00 XRAY XRAY Interpreted by: Self X-ray Results: CXR: borderline cardiomegaly with interstitial vascular congestion. Radiology report is pending. EKG Rate: 85 [place]: Normal Rhythm: NSR Block: None Hypertrophy: None ST: Normal Opioid Opioid Risk Tool Age (Rajinder box if 16-45): No History of Preadolescent Sexual Abuse: No Total: 0 Total Score Risk Category: Low Risk Copyright: Vahid GUERRA predicting aberrant behaviors Diagnosis Discharge Problem: Acute hyperglycemia, Insulin dependent diabetes mellitus CHF exacerbation Qualifiers: Heart failure type: unspecified Qualified Code(s): I50.9 - Heart failure, unspecified Instructions Forms: Precautions for COVID19 [facility] Social Distancing
[2022-05-20 09:24] LABS: HEMOGLOBIN 10.8 g/dL (13.5-18.0)
[2022-05-20 09:27] LABS: BASOPHILS # (AUTO) 0.2 X10^3/uL (0.0-0.1); BASOPHILS % (AUTO) 1.3 % (0.2-1.0); EOSINOPHILS # (AUTO) 0.1 x10^3/uL (0.0-0.2); EOSINOPHILS % (AUTO) 0.9 % (0.9-2.9); HEMATOCRIT 31.5 % (42.0-54.0); LYMPHOCYTES # (AUTO) 1.4 X10^3/uL (1.3-2.9); LYMPHOCYTES % (AUTO) 11.8 % (21.0-51.0); MEAN CORPUSCULAR HEMOGLOBIN 33.7 pg (27.0-34.0); MEAN CORPUSCULAR HGB CONC 34.4 g/dL (33.0-35.0); MEAN PLATELET VOLUME 7.1 fL (7.4-11.0); MONOCYTES # (AUTO) 0.8 x10^3/uL (0.3-0.8); MONOCYTES % (AUTO) 7.2 % (0.0-13.0); NEUTROPHILS # (AUTO) 9.1 x10^3/uL (2.2-4.8); NEUTROPHILS % (AUTO) 78.8 % (42.0-75.0); RED BLOOD COUNT 3.21 X10^6/uL (4.7-6.0); RED CELL DISTRIBUTION WIDTH 14.5 % (11.6-16.5); WHITE BLOOD COUNT 11.6 X10^3/uL (3.6-10.0)
[2022-05-20] MEDS ORDERED: LASIX IVP ONE (09:34)
[2022-05-20] MEDS ORDERED: LASIX ONE (09:39)
[2022-05-20 09:45] LABS: ALANINE AMINOTRANSFERASE 32 Units/L (12-78); ALBUMIN 3.2 g/dL (3.4-5.0); ALKALINE PHOSPHATASE 126 Units/L (46-116); ASPARTATE AMINO TRANSFERASE 15 Units/L (15-37); BLOOD UREA NITROGEN 26 mg/dL (7-18); CALCIUM 8.3 mg/dL (8.5-10.1); CARBON DIOXIDE 19.7 mmol/L (21-32); CHLORIDE 85 mmol/L (98-107); CKMB % 2.5 % (<4); COR CA(FOR HYPOALB) 8.9 mg/dL (8.5-10.1); COR NA(FOR HYPERGLY) 123 mmol/L (136-145); CREATINE KINASE 95 Units/L (39-308); CREATINE KINASE MB 2.4 ng/mL (0-4.0); CREATININE 1.44 mg/dL (0.70-1.30); TOTAL PROTEIN 7.4 g/dL (6.4-8.2); eGFR NON BLACK RACES 55 (>60)
[2022-05-20 09:48] LABS: SODIUM 115 mmol/L (136-145)
[2022-05-20] MEDS: NovoLIN R (or HumuLIN R) SUBCUT PRN ×2 (11:23→16:23)
[2022-05-20] MEDS ORDERED: PHENERGAN INJ 25 MG IM PRN (11:39)
--- NOTE | 2022-05-20 11:40 | RAD ---
HISTORYHigh blood sugarSTUDYPortable AP [id number]/03/2021, 04/02/2021FINDINGSThe heart is upper normal and unchanged. There is increasing dilatation of the pulmonary vasculature. There is no definite pneumonia, pulmonary edema or pleural fluid.IMPRESSIONDeveloping pulmonary vascular congestion, at least some of which may be related to the nonstandard technical factors/position. There is no evidence for pneumonia.Electronically signed by: LESLY MANLEY (May 20, 2022 11:38:21)
[2022-05-20 11:46] VITALS: BMI 33.6
[2022-05-20] MEDS ORDERED: XANAX PO PRN (12:02)
[2022-05-20] MEDS ORDERED: RESTORIL CAP 15 MG PO PRN (12:03)
[2022-05-20 18:45] LABS: BLOOD UREA NITROGEN 26 mg/dL (7-18); CALCIUM 8.2 mg/dL (8.5-10.1); CARBON DIOXIDE 24.7 mmol/L (21-32); CHLORIDE 94 mmol/L (98-107); COR NA(FOR HYPERGLY) 124 mmol/L (136-145); CREATININE 1.16 mg/dL (0.70-1.30); eGFR NON BLACK RACES > 60 (>60)
[2022-05-20 18:48] LABS: SODIUM 123 mmol/L (136-145)
[2022-05-20] MEDS ORDERED: KAYEXALATE SUSP PO NR (19:00)
[2022-05-20] MEDS: NORCO 10/325 TAB PO PRN (20:23)
[2022-05-20] MEDS: SNACK - Diabetic Appropriate PO SCH (20:23)
[2022-05-21 04:48] LABS: BASOPHILS # (AUTO) 0.1 X10^3/uL (0.0-0.1); EOSINOPHILS # (AUTO) 0.2 x10^3/uL (0.0-0.2); EOSINOPHILS % (AUTO) 1.4 % (0.9-2.9); HEMATOCRIT 27.8 % (42.0-54.0); HEMOGLOBIN 9.5 g/dL (13.5-18.0); LYMPHOCYTES # (AUTO) 1.8 X10^3/uL (1.3-2.9); LYMPHOCYTES % (AUTO) 15.4 % (21.0-51.0); MEAN CORPUSCULAR HEMOGLOBIN 33.5 pg (27.0-34.0); MEAN CORPUSCULAR HGB CONC 34.2 g/dL (33.0-35.0); MEAN PLATELET VOLUME 7.7 fL (7.4-11.0); MONOCYTES # (AUTO) 0.8 x10^3/uL (0.3-0.8); MONOCYTES % (AUTO) 7.2 % (0.0-13.0); NEUTROPHILS # (AUTO) 8.5 x10^3/uL (2.2-4.8); RED BLOOD COUNT 2.84 X10^6/uL (4.7-6.0); RED CELL DISTRIBUTION WIDTH 14.7 % (11.6-16.5); WHITE BLOOD COUNT 11.4 X10^3/uL (3.6-10.0)
[2022-05-21 05:07] LABS: ALANINE AMINOTRANSFERASE 28 Units/L (12-78); ALBUMIN 2.5 g/dL (3.4-5.0); ALKALINE PHOSPHATASE 97 Units/L (46-116); ASPARTATE AMINO TRANSFERASE 14 Units/L (15-37); BLOOD UREA NITROGEN 25 mg/dL (7-18); CALCIUM 8.2 mg/dL (8.5-10.1); CARBON DIOXIDE 23.6 mmol/L (21-32); CHLORIDE 97 mmol/L (98-107); COR CA(FOR HYPOALB) 9.4 mg/dL (8.5-10.1); COR NA(FOR HYPERGLY) 130 mmol/L (136-145); CREATININE 1.09 mg/dL (0.70-1.30); SODIUM 126 mmol/L (136-145); TOTAL PROTEIN 5.9 g/dL (6.4-8.2); eGFR NON BLACK RACES > 60 (>60)
[2022-05-21] MEDS: NORCO 10/325 TAB PO PRN ×2 (05:55→17:42)
[2022-05-21] MEDS: NovoLIN R (or HumuLIN R) SUBCUT PRN ×2 (05:56→20:47)
--- NOTE | 2022-05-21 06:35 | RAD ---
HISTORYFollow-up pulmonary edemaSTUDYChest AP [id number]/19/2021FINDINGSHeart size is upper limits normal. No definite congestive heart failure is noted. No acute alveolar infiltrates or pleural effusions are identified. Bony thorax is unremarkable.IMPRESSIONNo definite congestive heart failure or infiltrates on this examinationElectronically signed by: ALEXA SZYMANSKI (May 21, 2022 06:34:00)
--- NOTE | 2022-05-21 08:21 | DR.H&P ---
H&P History & Physical for Day of: H&P Date: 05/21/22 Chief Complaint Chief Complaint: Hyperglycemia Fatigue Leg swelling Shortness of breath Allergies Allergies Allergy/AdvReac Type Severity Reaction Status Date / Time No Known Drug Allergies Allergy Verified 08/14/19 11:39 History of Present Illness History of Present Illness: Pt is a 52 year old male past medical history of DMT2, HTN, presenting to the ER with fatigue, bilateral leg swelling, and stating that his "sugars are not coming down". In the ED, he was noted to have hyperglycemia, hyponatremia, hyperkalemia, shortness of breath, and appeared to be in fluid overload. Labs/imaging: Wbc 11.6, Hgb 10.8, Plt 408, Na 123, K 5.8, Creatinine 1.44, Glucose 431, CXR: Developing pulmonary vascular congestion, at least some of which may be related to the nonstandard technical factors/position. There is no evidence for pneumonia. Pt was given IV lasix 60mg in ED, will monitor I/O, fluid restriction, order echo for the morning and repeat chest xr. Order IV lasix 40mg BID. Restart home medications, including insulin and SSI. Kayexylate x1 dose ordered. Will continue to closely monitor and follow up labs including repeat BMP at 1800. Past Medical History Past Medical History: CHF, Coronary Artery Disease (s/p Angioplasty with stents), Diabetes, GERD and Hypertension Past Surgical History Surgical History: Ortho Surgery and Other Family History Family Medical History: Diabetes Mellitus, Cancer, [place], Coronary Artery Disease and Hypertension Social History Does patient currently use any type of tobacco product: Yes Have you used tobacco products in the last 12 months: Yes Type of Tobacco Use: Cigarettes Does any household member use tobacco: Yes Alcohol Use: DAILY Drug Use: None Medications Home Medications: No Known Drug Allergies Allergy (Verified 08/14/19 11:39) CONTINUE taking the following medications aspirin 81 mg PO DAILY 05/20/22 [History] hydrocodone-acetaminophen 1 tab PO BID PRN 05/20/22 [History] promethazine 12.5 mg PO DAILY PRN 05/20/22 [History] sildenafil 100 mg PO DAILY 05/20/22 [History] Labs Result Diagrams: 05/21/22 03:23 05/21/22 03:23 Labs: Laboratory WBC 11.4 X10^3/uL (3.6-10.0) H 05/21/22 03:23 RBC 2.84 X10^6/uL (4.7-6.0) L 05/21/22 03:23 Hgb 9.5 g/dL (13.5-18.0) L 05/21/22 03:23 Hct 27.8 % (42.0-54.0) L 05/21/22 03:23 MCV 98.0 fL (80.0-100.0) 05/21/22 03:23 MCH 33.5 pg (27.0-34.0) 05/21/22 03: MCHC 34.2 g/dL (33.0-35.0) 05/21/22 03: RDW 14.7 % (11.6-16.5) 05/21/22 03: Plt Count 350 X10^3/uL (150.0-450.0) 05/21/22 03: MPV 7.7 fL (7.4-11.0) 05/21/22 03:23 Neut % (Auto) 75.0 % (42.0-75.0) 05/21/22 03:23 Lymph % (Auto) 15.4 % (21.0-51.0) L 05/21/22 03:23 [place] % (Auto) 7.2 % (0.0-13.0) 05/21/22 03:23 Eos % (Auto) 1.4 % (0.9-2.9) 05/21/22 03: Baso % (Auto) 1.0 % (0.2-1.0) 05/21/22 03:23 Neut # (Auto) 8.5 x10^3/uL (2.2-4.8) H 05/21/22 03:23 Lymph # (Auto) 1.8 X10^3/uL (1.3-2.9) 05/21/22 03:23 [place] # (Auto) 0.8 x10^3/uL (0.3-0.8) 05/21/22 03:23 Eos # (Auto) 0.2 x10^3/uL (0.0-0.2) 05/21/22 03:23 Baso # (Auto) 0.1 X10^3/uL (0.0-0.1) 05/21/22 03:23 Absolute Nucleated RBC 0.0 /100WBC 05/21/22 03:23 Sodium 126 mmol/L (136-145) L 05/21/22 03:23 Corrected Sodium 130 mmol/L (136-145) L 05/21/22 03:23 Potassium 5.8 mmol/L (3.5-5.1) H 05/21/22 03:23 Chloride 97 mmol/L (98-107) L 05/21/22 03:23 Carbon Dioxide 23.6 mmol/L (21-32) 05/21/22 03:23 BUN 25 mg/dL (7-18) H 05/21/22 03:23 Creatinine 1.09 mg/dL (0.70-1.30) 05/21/22 03:23 Est GFR (MDRD) Af Amer > 60 (>60) 05/21/22 03:23 Est GFR (MDRD) Non-Af > 60 (>60) 05/21/22 03:23 Glucose 259 mg/dL (65-99) H 05/21/22 03:23 POC Glucose (mg/dL) 152 mg/dL (65-99) H 05/20/22 20:26 Calcium 8.2 mg/dL (8.5-10.1) L 05/21/22 03:23 Corrected Calcium 9.4 mg/dL (8.5-10.1) 05/21/22 03:23 Total Bilirubin 0.40 mg/dL (0.2-1.0) 05/21/22 03:23 AST 14 Units/L (15-37) L 05/21/22 03:23 ALT 28 Units/L (12-78) 05/21/22 03:23 Alkaline Phosphatase 97 Units/L (46-116) 05/21/22 03:23 Creatine Kinase 95 Units/L (39-308) 05/20/22 09:05 CK-MB (CK-2) 2.4 ng/mL (0-4.0) 05/20/22 09:05 CK/CKMB % Calc 2.5 % (<4) 05/20/22 09:05 Troponin I High Sens 14.1 ng/L (4.0-60.0) 05/20/22 09:05 B-Natriuretic Peptide 575 pg/mL (0-79) H* 05/20/22 09:05 Total Protein 5.9 g/dL (6.4-8.2) L 05/21/22 03:23 Albumin 2.5 g/dL (3.4-5.0) L 05/21/22 03:23 Globulin 3.4 g/dL (2.5-4.5) 05/21/22 03:23 Albumin/Globulin Ratio 0.7 Ratio (1.1-2.1) L 05/21/22 03:23 Acetone, Semi-Quant Negative (NEGATIVE) 05/20/22 09:05 SARS-CoV-2 (PCR) Negative (NEGATIVE) 05/20/22 10:00 Review of Systems Constitutional: No Symptoms Reported Eyes: No Symptoms Reported ENT: No Symptoms Reported Respiratory: Shortness of Breath Cardiovascular: Edema (B/L lower extremity) Gastrointestinal: No Symptoms Reported Genitourinary: No Symptoms Reported Musculoskeletal: No Symptoms Reported Skin: No Symptoms Reported Neurological: No Symptoms Reported Physical Exam Vital Signs: Temperature 99.0 F Pulse Rate [Apical] 100 Pulse Rate 84 Respiratory Rate 14 Blood Pressure [Right Arm] 165/79 Blood Pressure [Left Arm] 115/62 Blood Pressure 130/62 O2 Sat by Pulse Oximetry 98 Oriented: Normal Eyes: Normal Ear: Normal Nose: Normal Throat: Normal Respiratory: Clear Throughout Cardiovascular: Edema (2+ b/l lower extremity pitting edema) : Normal Auscultation: Bowel Sounds: Normal Palpation: Normal Tenderness: Normal Skin: Normal Musculoskeletal: Normal Psychiatric: Normal Mood Description: Calm and Appropriate Affect: Normal Speech Pattern: Clear and Appropriate Assessment/Plan (1) CHF exacerbation: Qualifiers: Heart failure type: unspecified Qualified Code(s): I50.9 - Heart failure, unspecified Status: Acute (2) Acute hyperkalemia: Status: Acute (3) Acute hyperglycemia: Status: Acute (4) Hyponatremia: Status: Acute Review H&P Reviewed: Yes Patient was examined?: Yes
[2022-05-21] MEDS: ZOCOR TAB 20 MG PO SCH (08:35)
[2022-05-21] MEDS: COREG TAB 25 MG PO SCH ×2 (08:35→20:46)
[2022-05-21] MEDS: ZESTRIL TAB 40 MG PO SCH (08:36)
[2022-05-21] MEDS: NORVASC TAB 10 MG PO SCH (08:36)
[2022-05-21] MEDS: LASIX IVP SCH (08:36)
[2022-05-21] MEDS: HumuLIN 70/30 (NovoLIN 70/30) SC SCH ×2 (11:18→16:05)
--- NOTE | 2022-05-21 13:47 | PCM.PROG ---
Progress Note Progress Note for Day of Date of Exam: 05/21/22 Subjective Subjective: Pt is a 52 year old male past medical history of DMT2, HTN, admitted for CHF exacerbation, hyperglycemia, hyponatremia, hyperkalemia. This morning he is resting comfortably in bed, no acute events overnight. Labs/imaging: Wbc 11.4, Hgb 9.5, Plt 350, Na 130, K 5.8, Creatinine 1.09, Glucose 259, CXR: No definite congestive heart failure or infiltrates on this examination. Pt is currently receiving IV lasix 40mg BID, has had good urine output. Continue to monitor I/O, fluid restriction. Echo ordered for today. CXR this morning resolved and hyponatremia improving. Home medications have been resumed. Otherwise continue with current treatment plan. Closely monitor and follow up labs/imaging. Past Medical Family Social History Past Med/Fam/Surg Hx: No changes since H&P Allergies: Allergies No Known Drug Allergies Allergy (Verified 08/14/19 11:39) Review of Systems ROS: No change since H&P Vital Signs and I&O's Vital Signs: Temperature 98.1 F Pulse Rate [Apical] 82 Pulse Rate 84 Respiratory Rate 20 Blood Pressure [Right Arm] 135/76 Blood Pressure [Left Arm] 115/62 Blood Pressure 130/62 O2 Sat by Pulse Oximetry 99 Intake and Output: Intake & Output 05/18/22 05/19/22 05/20/22 05/21/22 23:59 23:59 23:59 23:59 Intake Total 720 / 720 120 / 120 Output Total 2400 / 2400 1400 / 1400 Balance -1680 / -1680 -1280 / -1280 Physical Exam Oriented: Normal Eyes: Normal Ear: Normal Nose: Normal Throat: Normal Respiratory: Normal Cardiovascular: Edema (1+ b/l lower extremity pitting edema) : Normal Auscultation: Bowel Sounds: Normal Tenderness: Normal Skin: Normal Musculoskeletal: Normal Psychiatric: Normal Mood Description: Calm and Appropriate Affect: Normal Speech Pattern: Clear and Appropriate Laboratory and Diagnostics Result Diagrams: 05/22/22 03:30 05/22/22 03:30 Labs: Laboratory WBC 11.4 X10^3/uL (3.6-10.0) H 05/21/22 03:23 RBC 2.84 X10^6/uL (4.7-6.0) L 05/21/22 03:23 Hgb 9.5 g/dL (13.5-18.0) L 05/21/22 03:23 Hct 27.8 % (42.0-54.0) L 05/21/22 03:23 MCV 98.0 fL (80.0-100.0) 05/21/22 03:23 MCH 33.5 pg (27.0-34.0) 05/21/22 03: MCHC 34.2 g/dL (33.0-35.0) 05/21/22 03: RDW 14.7 % (11.6-16.5) 05/21/22 03: Plt Count 350 X10^3/uL (150.0-450.0) 05/21/22 03: MPV 7.7 fL (7.4-11.0) 05/21/22 03: Neut % (Auto) 75.0 % (42.0-75.0) 05/21/22 03: Lymph % (Auto) 15.4 % (21.0-51.0) L 05/21/22 03:23 [place] % (Auto) 7.2 % (0.0-13.0) 05/21/22 03: Eos % (Auto) 1.4 % (0.9-2.9) 05/21/22 03: Baso % (Auto) 1.0 % (0.2-1.0) 05/21/22 03: Neut # (Auto) 8.5 x10^3/uL (2.2-4.8) H 05/21/22 03:23 Lymph # (Auto) 1.8 X10^3/uL (1.3-2.9) 05/21/22 03:23 [place] # (Auto) 0.8 x10^3/uL (0.3-0.8) 05/21/22 03:23 Eos # (Auto) 0.2 x10^3/uL (0.0-0.2) 05/21/22 03:23 Baso # (Auto) 0.1 X10^3/uL (0.0-0.1) 05/21/22 03: Absolute Nucleated RBC 0.0 /100WBC 05/21/22 03:23 Sodium 126 mmol/L (136-145) L 05/21/22 03:23 Corrected Sodium 130 mmol/L (136-145) L 05/21/22 03:23 Potassium 5.8 mmol/L (3.5-5.1) H 05/21/22 03:23 Chloride 97 mmol/L (98-107) L 05/21/22 03:23 Carbon Dioxide 23.6 mmol/L (21-32) 05/21/22 03:23 BUN 25 mg/dL (7-18) H 05/21/22 03:23 Creatinine 1.09 mg/dL (0.70-1.30) 05/21/22 03:23 Est GFR (MDRD) Af Amer > 60 (>60) 05/21/22 03:23 Est GFR (MDRD) Non-Af > 60 (>60) 05/21/22 03:23 Glucose 259 mg/dL (65-99) H 05/21/22 03:23 POC Glucose (mg/dL) 308 mg/dL (65-99) H 05/21/22 11:16 Calcium 8.2 mg/dL (8.5-10.1) L 05/21/22 03:23 Corrected Calcium 9.4 mg/dL (8.5-10.1) 05/21/22 03:23 Total Bilirubin 0.40 mg/dL (0.2-1.0) 05/21/22 03:23 AST 14 Units/L (15-37) L 05/21/22 03:23 ALT 28 Units/L (12-78) 05/21/22 03:23 Alkaline Phosphatase 97 Units/L (46-116) 05/21/22 03:23 Creatine Kinase 95 Units/L (39-308) 05/20/22 09:05 CK-MB (CK-2) 2.4 ng/mL (0-4.0) 05/20/22 09:05 CK/CKMB % Calc 2.5 % (<4) 05/20/22 09:05 Troponin I High Sens 14.1 ng/L (4.0-60.0) 05/20/22 09:05 B-Natriuretic Peptide 575 pg/mL (0-79) H* 05/20/22 09:05 Total Protein 5.9 g/dL (6.4-8.2) L 05/21/22 03:23 Albumin 2.5 g/dL (3.4-5.0) L 05/21/22 03:23 Globulin 3.4 g/dL (2.5-4.5) 05/21/22 03:23 Albumin/Globulin Ratio 0.7 Ratio (1.1-2.1) L 05/21/22 03:23 Acetone, Semi-Quant Negative (NEGATIVE) 05/20/22 09:05 SARS-CoV-2 (PCR) Negative (NEGATIVE) 05/20/22 10:00 Plan (1) CHF exacerbation: Status: Acute Qualifiers: Heart failure type: unspecified Qualified Code(s): I50.9 - Heart nikhil lure, unspecified (2) Acute hyperkalemia: Status: Acute (3) Acute hyperglycemia: Status: Acute (4) Hyponatremia: Status: Acute
[2022-05-21] MEDS ORDERED: SNACK - Diabetic Appropriate PO SCH (20:00)
[2022-05-21] MEDS: SNACK - Diabetic Appropriate PO SCH (21:52)
[2022-05-22] MEDS: NORCO 10/325 TAB PO PRN (04:28)
[2022-05-22 05:20] LABS: BASOPHILS # (AUTO) 0.1 X10^3/uL (0.0-0.1); BASOPHILS % (AUTO) 1.3 % (0.2-1.0); EOSINOPHILS # (AUTO) 0.2 x10^3/uL (0.0-0.2); EOSINOPHILS % (AUTO) 1.6 % (0.9-2.9); HEMATOCRIT 28.7 % (42.0-54.0); HEMOGLOBIN 9.8 g/dL (13.5-18.0); LYMPHOCYTES # (AUTO) 1.7 X10^3/uL (1.3-2.9); LYMPHOCYTES % (AUTO) 17.7 % (21.0-51.0); MEAN CORPUSCULAR HEMOGLOBIN 33.5 pg (27.0-34.0); MEAN CORPUSCULAR HGB CONC 34.2 g/dL (33.0-35.0); MEAN CORPUSCULAR VOLUME 98.2 fL (80.0-100.0); MEAN PLATELET VOLUME 7.7 fL (7.4-11.0); MONOCYTES # (AUTO) 0.8 x10^3/uL (0.3-0.8); MONOCYTES % (AUTO) 8.7 % (0.0-13.0); NEUTROPHILS # (AUTO) 6.8 x10^3/uL (2.2-4.8); NEUTROPHILS % (AUTO) 70.7 % (42.0-75.0); RED BLOOD COUNT 2.93 X10^6/uL (4.7-6.0); WHITE BLOOD COUNT 9.6 X10^3/uL (3.6-10.0)
[2022-05-22 05:30] LABS: BLOOD UREA NITROGEN 29 mg/dL (7-18); CALCIUM 8.7 mg/dL (8.5-10.1); CARBON DIOXIDE 25.8 mmol/L (21-32); CHLORIDE 104 mmol/L (98-107); COR NA(FOR HYPERGLY) 137 mmol/L (136-145); CREATININE 1.11 mg/dL (0.70-1.30); SODIUM 135 mmol/L (136-145); eGFR NON BLACK RACES > 60 (>60)
[2022-05-22] MEDS: HumuLIN 70/30 (NovoLIN 70/30) SC SCH (07:29)
[2022-05-22] MEDS: NovoLIN R (or HumuLIN R) SUBCUT PRN (07:29)
[2022-05-22] MEDS: NORVASC TAB 10 MG PO SCH (08:15)
[2022-05-22] MEDS: COREG TAB 25 MG PO SCH (08:15)
[2022-05-22] MEDS: ZOCOR TAB 20 MG PO SCH (08:15)
[2022-05-22] MEDS: ZESTRIL TAB 40 MG PO SCH (08:15)
[2022-05-22] MEDS: LASIX IVP SCH (08:16)
--- NOTE | 2022-05-22 08:16 | W.DIS.FURT ---
Summary of Discharge Discharge Summary of Date Date of Exam: 05/22/22 Admission Date Date of Admission: 05/20/22 Admission Diagnosis Patient Problems (Updated 05/21/22 @ 13:41 by Anshul Martínez) Insulin dependent diabetes mellitus (Acute) E11.9, Z79.4 Acute hyperglycemia (Acute) R73.9 CHF exacerbation (Acute) I50.9 Hospital Course: Pt is a 52 year old male past medical history of DMT2, HTN, admitted for CHF exacerbation, hyperglycemia, hyponatremia, hyperkalemia. His hospital/treatment course included: IV lasix 40mg BID along with fluid restriction that resulted in good urine output and improvement of symptoms. Echo:EF 61%, Shortness of breath resolved and CXR: No definite congestive heart failure or infiltrates on this examination. Hyponatremia back wnl as well as other electrolyte abnormalities. Pt was discharged in stable condition. Continue lasix at home. Referral placed for cardiology outpatient. Instructed to follow up wtih pcp in 3-5 days. Vital Signs: Vital Signs (72 hours) 05/20/22 08:52 05/20/22 09:11 05/20/22 09:15 Temperature 98.0 F Pulse Rate 93 H 87 87 Pulse Rate [Apical] Respiratory Rate 21 22 22 Blood Pressure 175/99 Blood Pressure [Right Arm] O2 Sat by Pulse Oximetry 97 99 97 05/20/22 09:30 05/20/22 09:41 05/20/22 09:45 Temperature Pulse Rate 86 90 90 Pulse Rate [Apical] Respiratory Rate 20 22 28 H Blood Pressure 147/74 Blood Pressure [Right Arm] O2 Sat by Pulse Oximetry 89 L 95 95 05/20/22 09:46 05/20/22 10:00 05/20/22 10:15 Temperature Pulse Rate 87 98 H 90 Pulse Rate [Apical] Respiratory Rate 22 28 H Blood Pressure 119/58 133/63 136/68 Blood Pressure [Right Arm] O2 Sat by Pulse Oximetry 94 L 94 L 97 05/20/22 10:30 05/20/22 10:45 05/20/22 10:46 Temperature Pulse Rate 88 90 90 Pulse Rate [Apical] Respiratory Rate Blood Pressure 142/81 134/63 Blood Pressure [Right Arm] O2 Sat by Pulse Oximetry 93 L 95 96 05/20/22 11:00 05/20/22 11:10 05/20/22 12:00 Temperature 98.3 F 98.3 F Pulse Rate 84 Pulse Rate [Apical] 89 98 H Respiratory Rate 14 21 Blood Pressure 130/62 Blood Pressure [Right Arm] 151/72 155/73 O2 Sat by Pulse Oximetry 95 95 94 L 05/20/22 13:00 05/20/22 14:00 05/20/22 15:00 Temperature Pulse Rate Pulse Rate [Apical] 91 H 86 87 Respiratory Rate 22 21 23 Blood Pressure Blood Pressure [Right Arm] 168/76 136/67 150/72 O2 Sat by Pulse Oximetry 94 L 93 L 96 05/20/22 16:00 05/20/22 17:00 05/20/22 18:00 Temperature 99.5 F Pulse Rate Pulse Rate [Apical] 90 84 97 H Respiratory Rate 24 17 20 Blood Pressure Blood Pressure [Right Arm] 152/70 127/60 131/85 O2 Sat by Pulse Oximetry 98 94 L 95 05/20/22 19:00 05/20/22 20:00 05/20/22 20:23 Temperature 98.4 F Pulse Rate Pulse Rate [Apical] 83 88 Respiratory Rate 19 21 22 Blood Pressure Blood Pressure [Right Arm] 135/64 151/72 O2 Sat by Pulse Oximetry 96 97 05/20/22 21:00 05/20/22 21:23 05/20/22 22:00 Temperature Pulse Rate Pulse Rate [Apical] 89 90 Respiratory Rate 18 18 18 Blood Pressure Blood Pressure [Right Arm] 153/72 137/61 O2 Sat by Pulse Oximetry 95 92 L 05/20/22 23:00 05/21/22 00:00 05/21/22 01:00 Temperature 98.3 F Pulse Rate Pulse Rate [Apical] 92 H 82 87 Respiratory Rate 18 24 24 Blood Pressure Blood Pressure [Right Arm] 158/69 147/70 153/66 O2 Sat by Pulse Oximetry 91 L 95 98 05/21/22 02:00 05/21/22 03:00 05/21/22 04:00 Temperature 98.6 F Pulse Rate Pulse Rate [Apical] 84 79 84 Respiratory Rate 16 18 16 Blood Pressure Blood Pressure [Right Arm] 153/74 143/72 166/79 O2 Sat by Pulse Oximetry 97 97 100 05/21/22 05:00 05/21/22 05:55 05/21/22 05:59 Temperature Pulse Rate Pulse Rate [Apical] 83 103 H Respiratory Rate 13 20 16 Blood Pressure Blood Pressure [Right Arm] 150/71 170/76 O2 Sat by Pulse Oximetry 98 97 05/21/22 06:55 05/21/22 07:00 05/21/22 08:00 Temperature 99.0 F Pulse Rate Pulse Rate [Apical] 86 100 H Respiratory Rate 14 14 14 Blood Pressure Blood Pressure [Right Arm] 144/67 165/79 O2 Sat by Pulse Oximetry 96 98 05/21/22 09:00 05/21/22 10:00 05/21/22 11:00 Temperature Pulse Rate Pulse Rate [Apical] 91 H 79 83 Respiratory Rate 16 18 16 Blood Pressure Blood Pressure [Right Arm] 139/63 125/61 158/75 O2 Sat by Pulse Oximetry 97 100 100 05/21/22 12:00 05/21/22 13:00 05/21/22 14:00 Temperature 98.1 F Pulse Rate Pulse Rate [Apical] 89 82 81 Respiratory Rate 20 20 20 Blood Pressure Blood Pressure [Right Arm] 135/76 113/58 126/62 O2 Sat by Pulse Oximetry 98 99 100 05/21/22 15:00 05/21/22 16:00 05/21/22 17:00 Temperature 98.2 F Pulse Rate Pulse Rate [Apical] 82 85 88 Respiratory Rate 18 23 20 Blood Pressure Blood Pressure [Right Arm] 131/63 162/82 128/58 O2 Sat by Pulse Oximetry 100 99 98 05/21/22 17:42 05/21/22 18:00 05/21/22 18:42 Temperature Pulse Rate Pulse Rate [Apical] 92 H Respiratory Rate 20 18 20 Blood Pressure Blood Pressure [Right Arm] 149/84 O2 Sat by Pulse Oximetry 99 05/21/22 19:00 05/21/22 20:00 05/21/22 21:00 Temperature 98.5 F Pulse Rate Pulse Rate [Apical] 86 80 81 Respiratory Rate 24 24 15 Blood Pressure Blood Pressure [Right Arm] 163/78 166/83 170/82 O2 Sat by Pulse Oximetry 97 95 95 05/21/22 22:00 05/21/22 23:00 05/22/22 00:00 Temperature 98.6 F Pulse Rate Pulse Rate [Apical] 80 79 79 Respiratory Rate 18 17 21 Blood Pressure Blood Pressure [Right Arm] 143/72 165/79 158/73 O2 Sat by Pulse Oximetry 96 95 93 L 05/22/22 01:00 05/22/22 02:00 05/22/22 03:00 Temperature Pulse Rate Pulse Rate [Apical] 76 76 77 Respiratory Rate 24 24 15 Blood Pressure Blood Pressure [Right Arm] 173/82 161/77 139/67 O2 Sat by Pulse Oximetry 96 93 L 93 L 05/22/22 04:00 05/22/22 04:28 05/22/22 05:00 Temperature 98.8 F Pulse Rate Pulse Rate [Apical] 88 79 Respiratory Rate 24 20 14 Blood Pressure Blood Pressure [Right Arm] 160/83 179/89 O2 Sat by Pulse Oximetry 93 L 96 05/22/22 05:28 05/22/22 06:00 05/22/22 07:00 Temperature Pulse Rate Pulse Rate [Apical] 79 73 Respiratory Rate 18 16 15 Blood Pressure Blood Pressure [Right Arm] 160/74 176/78 O2 Sat by Pulse Oximetry 93 L 95 Labs: Laboratory Last Values WBC 9.6 X10^3/uL (3.6-10.0) 05/22/22 03:30 RBC 2.93 X10^6/uL (4.7-6.0) L 05/22/22 03:30 Hgb 9.8 g/dL (13.5-18.0) L 05/22/22 03:30 Hct 28.7 % (42.0-54.0) L 05/22/22 03:30 MCV 98.2 fL (80.0-100.0) 05/22/22 03:30 MCH 33.5 pg (27.0-34.0) 05/22/22 03:30 MCHC 34.2 g/dL (33.0-35.0) 05/22/22 03:30 RDW 15.0 % (11.6-16.5) 05/22/22 03:30 Plt Count 342 X10^3/uL (150.0-450.0) 05/22/22 03:30 MPV 7.7 fL (7.4-11.0) 05/22/22 03:30 Neut % (Auto) 70.7 % (42.0-75.0) 05/22/22 03:30 Lymph % (Auto) 17.7 % (21.0-51.0) L 05/22/22 03:30 [place] % (Auto) 8.7 % (0.0-13.0) 05/22/22 03:30 Eos % (Auto) 1.6 % (0.9-2.9) 05/22/22 03:30 Baso % (Auto) 1.3 % (0.2-1.0) H 05/22/22 03:30 Neut # (Auto) 6.8 x10^3/uL (2.2-4.8) H 05/22/22 03:30 Lymph # (Auto) 1.7 X10^3/uL (1.3-2.9) 05/22/22 03:30 [place] # (Auto) 0.8 x10^3/uL (0.3-0.8) 05/22/22 03:30 Eos # (Auto) 0.2 x10^3/uL (0.0-0.2) 05/22/22 03:30 Baso # (Auto) 0.1 X10^3/uL (0.0-0.1) 05/22/22 03:30 Absolute Nucleated RBC 0.0 /100WBC 05/22/22 03:30 Sodium 135 mmol/L (136-145) L 05/22/22 03:30 Corrected Sodium 137 mmol/L (136-145) 05/22/22 03:30 Potassium 5.3 mmol/L (3.5-5.1) H 05/22/22 03:30 Chloride 104 mmol/L (98-107) 05/22/22 03:30 Carbon Dioxide 25.8 mmol/L (21-32) 05/22/22 03:30 BUN 29 mg/dL (7-18) H 05/22/22 03:30 Creatinine 1.11 mg/dL (0.70-1.30) 05/22/22 03:30 Est GFR (MDRD) Af Amer > 60 (>60) 05/22/22 03:30 Est GFR (MDRD) Non-Af > 60 (>60) 05/22/22 03:30 Glucose 185 mg/dL (65-99) H 05/22/22 03:30 POC Glucose (mg/dL) 260 mg/dL (65-99) H 05/21/22 19:57 Calcium 8.7 mg/dL (8.5-10.1) 05/22/22 03:30 Corrected Calcium 9.4 mg/dL (8.5-10.1) 05/21/22 03:23 Total Bilirubin 0.40 mg/dL (0.2-1.0) 05/21/22 03:23 AST 14 Units/L (15-37) L 05/21/22 03:23 ALT 28 Units/L (12-78) 05/21/22 03:23 Alkaline Phosphatase 97 Units/L (46-116) 05/21/22 03:23 Creatine Kinase 95 Units/L (39-308) 05/20/22 09:05 CK-MB (CK-2) 2.4 ng/mL (0-4.0) 05/20/22 09:05 CK/CKMB % Calc 2.5 % (<4) 05/20/22 09:05 Troponin I High Sens 14.1 ng/L (4.0-60.0) 05/20/22 09:05 B-Natriuretic Peptide 575 pg/mL (0-79) H* 05/20/22 09:05 Total Protein 5.9 g/dL (6.4-8.2) L 05/21/22 03:23 Albumin 2.5 g/dL (3.4-5.0) L 05/21/22 03:23 Globulin 3.4 g/dL (2.5-4.5) 05/21/22 03:23 Albumin/Globulin Ratio 0.7 Ratio (1.1-2.1) L 05/21/22 03:23 Acetone, Semi-Quant Negative (NEGATIVE) 05/20/22 09:05 SARS-CoV-2 (PCR) Negative (NEGATIVE) 05/20/22 10:00 Reason For Visit: HYPONATREMIA, HYPERKALEMIA, CHF, DM I Discharge Date Discharge Date: 05/22/22 Discharge Diagnosis All Active Problems (Updated 05/21/22 @ 13:41 by Anshul Martínez) Hyponatremia (Acute) Abdominal pain (Acute) Nausea & vomiting (Acute) DKA (diabetic ketoacidoses) (Acute) Insulin dependent diabetes mellitus (Acute) Hypoglycemia (Acute) Dehydration, mild (Acute) Elevated troponin level (Acute) Hypotension (Acute) Acute hyperglycemia (Acute) DKA (diabetic ketoacidoses) (Acute) Non Q wave myocardial infarction (Acute) Acute dehydration (Acute) Acute renal failure (Acute) Pneumonia (Acute) Acute hyperkalemia (Acute) CHF exacerbation (Acute) Plan of Treatment: Continue with present treatment and follow up plan. Pt is to keep follow up appointment as instructed and take medications as ordered. Discharge Medications Discharge Medications: No Known Drug Allergies Allergy (Verified 08/14/19 11:39) CONTINUE taking the following medications aspirin 81 mg PO DAILY 05/20/22 [History] hydrocodone-acetaminophen 1 tab PO BID PRN 05/20/22 [History] promethazine 12.5 mg PO DAILY PRN 05/20/22 [History] sildenafil 100 mg PO DAILY 05/20/22 [History] Discharge Disposition Assessment: No acute distress noted at discharge. Discharge Plan Discharge Plan Hospital Course: Pt is a 52 year old male past medical history of DMT2, HTN, admitted for CHF exacerbation, hyperglycemia, hyponatremia, hyperkalemia. His hospital/treatment course included: IV lasix 40mg BID along with fluid restriction that resulted in good urine output and improvement of symptoms. Echo:EF 61%, Shortness of breath resolved and CXR: No definite congestive heart failure or infiltrates on this examination. Hyponatremia back wnl as well as other electrolyte abnormalities. Pt was discharged in stable condition. Continue lasix at home. Referral placed for cardiology outpatient. Instructed to follow up [facility] pcp in 3-5 days. Patient Disposition: 01 HOME, SELF-CARE Condition: Stable Health Concerns: Post Hospitalization: new medications and changes needed to prevent readmission or further decline. Pt educated and given instructions on all concerns. Care Plan Goals: Problem: Fluid Volume Deficit Goal: Maintain/Improved Adequate hydration. Instructions: Follow provided instructions. Follow up with primary physician as directed. Contact primary care physician or report to the closest Emergency Room if condition worsens.Problem: Pain/Alteration in Comfort Goal: Improve/ Resolve Pain; Achieve Pain Tolerance Instructions: Take pain medications as prescribed. Contact your primary care provider if your pain is unrelieved or worsens. Follow up with primary care provider as directed. Plan of Treatment: Continue with present treatment and follow up plan. Pt is to keep follow up appointment as instructed and take medications as ordered. Assessment: No acute distress noted at discharge. Prescriptions: Continued carvedilol [Coreg] 25 mg Tablet 25 mg PO BID amlodipine 10 mg Tablet 10 mg PO DAILY simvastatin [Zocor] 20 mg Tablet 20 mg PO QAM lisinopril 40 mg Tablet 40 mg PO DAILY pantoprazole 40 mg Tablet,Delayed Release (Dr/Ec) 40 mg PO DAILY Qty: 60 3RF ibuprofen [IBU] 800 mg tablet 800 mg PO TID PRN alprazolam 1 mg tablet 1 mg PO BID Novolin 70/30 U-100 Insulin 100 unit/mL (70-30) suspension 35 unit SUBCUT TIDWM temazepam 30 mg capsule 30 mg PO HS furosemide 20 mg tablet 20 mg PO DAILY PRN promethazine 12.5 mg tablet 12.5 mg PO DAILY PRN hydrocodone-acetaminophen 10-325 mg tablet 1 tab PO BID PRN sildenafil 100 mg Tablet 100 mg PO DAILY aspirin 81 mg Tablet 81 mg PO DAILY Orders to Discharge Patient Discharge Orders: Discharge (Routine); Ordered 05/22/22 Ordered By: Anshul Martínez Follow ups/Referrals Follow ups/Referrals: Pierre Orona [STAFF PHYSICIAN] - 05/22/22 9:00 am (Referral for new patient faxed to [facility] at [phone]. [facility] will contact patient and setup appointment date and time.) JUANITA ADDISON [Primary Care Provider] - 05/29/22 9:00 am Instructions Instructions: Steps to Quit Smoking, [id number], Alcohol Abuse and Dependence Information, Adult, Hyponatremia, Uloy-py-Juew, Heart Failure, Self Care, Uvuz-kk-Lopk, Hyperkalemia, Fcfq-wt-Hlyu, Diabetes Mellitus and Sick Day Management, Nausea, Adult, Vshe-wk-Vcni, Living With Heart Failure, Blood Glucose Monitoring, Adult, Form - Daily Weight Record Stand Alone Forms: Precautions for COVID19, [facility], Patient Portal, Social Distancing Patient Education Addl Reference Links: Fluid Restriction [email or web address] [email or web address].[email or web address]&[email or web address]&mainSearchCriteria.v.dn=[email or web address]&f=[id number]
[2022-05-22 12:09] VITALS: BP 141/85
== END 2022-05-22 10:30 | disposition home or self-care (01) ==
LOC: ER 08:50 → INTOOBSV 10:35 → ICU 10:35
PROVIDERS: ADMIT Internal Medicine; ATTEND Internal Medicine
DX: I50.9 Heart failure, unspecified; E87.1 Hypo-osmolality and hyponatremia; I11.0 Hypertensive heart disease with heart failure; E11.65 Type 2 diabetes mellitus with hyperglycemia; R06.02 Shortness of breath; E87.5 Hyperkalemia; Z20.822 Contact with and (suspected) exposure to COVID-19; Z79.4 Long term (current) use of insulin

== ENCOUNTER 2023-10-22 10:09 | Observation (INO) ==
[2023-10-22 10:29] VITALS: BMI 29.0
--- NOTE | 2023-10-22 10:33 | DR.GENAD ---
HPI Time Seen Time Seen by Provider: 10/22/23 10:24 PCP Primary Care Physician: TERRANCE ADDISON Complaint/Symptoms Chief Complaint Doctors Comments: 53-year-old male brought in via EMS for evaluation. Patient states he was drinking heavily 3 nights ago, watching football. He fell to the ground and landed on his left side. Patient does not know how long he was on the floor forward, took a while for him to get up onto the bed. Having numbness of the right leg. States he can move it well, stand on it, but it gives out on him & is numb. Having pain of the left side of the ribs, pain of the left upper extremity, wrist region. Feeling some numbness of the left upper extremity.. Having pain in the left hip region with movement. Patient states he has been unable to get out of bed, feeling too weak. Patient is a drinker on a regular basis. He is also diabetic. Chief Complaint:: PT STATES HE WAS DRINKING HEAVY SATURDAY AND FELL ONTO HIS LEFT RIBS AND IS HAVING PAIN FROM THE PAIN WELL HIS LEFT ARM. HIS RIGHT LEG IS ALSO HAVING PAIN AND NUMBNESS. PT HAS A HEMATOMA TO LEFT FOREARM AND ABRASIONS NOTED TO THAT ARM WELL FROM FALL. Self Treatment fo Chief Complaint: NONE COVID-19 Coronavirus risk:travel/contact w/high risk person: No Has patient experienced Coronavirus symptoms: No Nurses notes reviewed Nurses Notes Review: Yes Source History Provided: Patient and EMS Mode of Arrival Mode of Arrival: EMS Timing Onset of Chief Complaint: 10/19/23 PMH PMH Past Medical History: Yes Past Medical History: CHF, Coronary Artery Disease, Diabetes, GERD, Hypertension and Renal Disease Past Surgical History: Yes Surgical History: Angioplasty/Stents, Ortho Surgery and Other Family History History of Family Medical Conditions: Yes Family Medical History: Diabetes Mellitus, Cancer, [place], Coronary Artery Disease, Heart Failure and Hypertension Social History Does patient currently use any type of tobacco product: Yes Have you used tobacco products in the last 12 months: Yes Type of Tobacco Use: Cigarettes Does any household member use tobacco: Yes Alcohol Use: Heavy Do you use any recreational Drugs:: No Lives With: Family Lives Where: Home Travel Risk Coronavirus risk:travel/contact w/high risk person: No Has patient experienced Coronavirus symptoms: No Infectious screening In the last 2 months have you had wt loss of >10#?: NO Have you had fever, night sweats or hemotysis?: No Have you traveled outside the country in the last 6 months?: No Isolation: Standard ROS Review of Systems Constitutional: Weakness Eyes: No Symptoms Reported ENTM: No Symptoms Reported Respiratoy: No Symptoms Reported Cardiovascular: No Symptoms Reported Gastrointestinal/Abdominal: No Symptoms Reported Genitourinary: No Symptoms Reported Neurological: Numbness (RLE, LUE) and Problems Walking Musculoskeletal: Chest wall and Wrist Integumentary: No Symptoms Reported All Other Systems: Reviewed and Negative PE Vital Signs Vitals: Vital Signs Temperature 98.4 F Pulse Rate 110 Pulse Rate 104 Pulse Rate 91 Pulse Rate 88 Pulse Rate 101 Pulse Rate 91 Pulse Rate 95 Pulse Rate 91 Pulse Rate 103 Pulse Rate 90 Pulse Rate 101 Pulse Rate 101 Pulse Rate 114 Pulse Rate 100 Pulse Rate 97 Pulse Rate 94 Pulse Rate 93 Pulse Rate 99 Pulse Rate 101 Pulse Rate 103 Respiratory Rate 25 Respiratory Rate 18 Respiratory Rate 16 Respiratory Rate 17 Respiratory Rate 21 Respiratory Rate 17 Respiratory Rate 19 Respiratory Rate 18 Respiratory Rate 21 Respiratory Rate 21 Respiratory Rate 19 Respiratory Rate 25 Respiratory Rate 28 Respiratory Rate 30 Respiratory Rate 20 Respiratory Rate 24 Respiratory Rate 22 Respiratory Rate 20 Respiratory Rate 26 Respiratory Rate 20 Blood Pressure 172/88 Blood Pressure 181/91 Blood Pressure 181/91 O2 Sat by Pulse Oximetry 99 O2 Sat by Pulse Oximetry 99 O2 Sat by Pulse Oximetry 99 O2 Sat by Pulse Oximetry 99 O2 Sat by Pulse Oximetry 99 O2 Sat by Pulse Oximetry 100 O2 Sat by Pulse Oximetry 100 General General Appearance: Alert and In No Apparent Distress Head Head Exam: Normal Inspection, Atraumatic and Normocephalic Eyes Eye exam: Normal Appearance, PERRL and EOMI ENT ENT Exam: Mucous Membranes Moist Neck Neck Exam: Normal Inspection Respiratory Respiratory Exam: Normal Lung Sounds Bilat; negative Accessory Muscle Use or Respiratory Distress Cardiovascular Cardiovascular Exam: Regular Rate, Normal Rhythm and Normal Heart Sounds Abdominal Exam Abdominal Exam: Normal Bowel Sounds and Soft; negative Tenderness Neurologic Neurological Exam: Alert, Oriented X3 and CN II-XII Intact; negative Motor Sensory Deficit Skin Skin Exam: Warm, Dry and Other (multiple abrasions, small hematoma left wrist. ) COURSE Treatment Treatment: 53-year-old male presents with feeling poorly for the past 3 days. Fell to the floor at home, was on the floor for unknown amount of time, finally able to crawl back into bed. Having left-sided rib/left upper extremity pain/left hip pain, and numbness of the right lower extremity.. Able to raise and maintain the right lower extremity off the bed. No obvious focal neurological deficits. Work-up initiated. Patient given IV fluids. 1318 -CT of the brain, CT lumbar spine without acute abnormalities. Does have chronic degenerative changes. X-rays of the left wrist, left hip/pelvis without obvious acute bony abnormalities. Labs overall acceptable except for marked elevation of creatine kinase, 2759, consistent with rhabdomyolysis. Patient requires admission for further treatment of his rhabdomyolysis, additional IV fluids given. We will present patient to covering , Dr. Rdz. 1521 - His ACCESS CONSULTANT r equests EKG & troponin. EKG normal. Troponin normal. [facility] Labs Reviewed 10/22/23 11:45 10/22/23 11:45 Laboratory: WBC 11.3 X10^3/uL (3.6-10.0) H 10/22/23 11:45 RBC 3.05 X10^6/uL (4.7-6.0) L 10/22/23 11:45 Hgb 10.6 g/dL (13.5-18.0) L 10/22/23 11:45 Hct 31.4 % (42.0-54.0) L 10/22/23 11:45 MCV 103.1 fL (80.0-100.0) H 10/22/23 11:45 MCH 34.7 pg (27.0-34.0) H 10/22/23 11:45 MCHC 33.6 g/dL (33.0-35.0) 10/22/23 11:45 RDW 16.5 % (11.6-16.5) 10/22/23 11:45 Plt Count 483 X10^3/uL (150.0-450.0) H 10/22/23 11:45 MPV 7.1 fL (7.4-11.0) L 10/22/23 11:45 Neut % (Auto) 77.5 % (42.0-75.0) H 10/22/23 11:45 Lymph % (Auto) 14.4 % (21.0-51.0) L 10/22/23 11:45 [place] % (Auto) 6.7 % (0.0-13.0) 10/22/23 11:45 Eos % (Auto) 0.8 % (0.9-2.9) L 10/22/23 11:45 Baso % (Auto) 0.6 % (0.2-1.0) 10/22/23 11:45 Neut # (Auto) 8.8 x10^3/uL (2.2-4.8) H 10/22/23 11:45 Lymph # (Auto) 1.6 X10^3/uL (1.3-2.9) 10/22/23 11:45 [place] # (Auto) 0.8 x10^3/uL (0.3-0.8) 10/22/23 11:45 Eos # (Auto) 0.1 x10^3/uL (0.0-0.2) 10/22/23 11:45 Baso # (Auto) 0.1 X10^3/uL (0.0-0.1) 10/22/23 11:45 Absolute Nucleated RBC 0.0 /100WBC 10/22/23 11:45 Sodium 139 mmol/L (136-145) 10/22/23 11:45 Corrected Sodium TNP 10/22/23 11:45 Potassium 3.9 mmol/L (3.5-5.1) 10/22/23 11:45 Chloride 104 mmol/L (98-107) 10/22/23 11:45 Carbon Dioxide 24.0 mmol/L (21-32) 10/22/23 11:45 BUN 26 mg/dL (7-18) H 10/22/23 11:45 Creatinine 1.39 mg/dL (0.70-1.30) H 10/22/23 11:45 Est GFR (MDRD) Af Amer > 60 (>60) 10/22/23 11:45 Est GFR (MDRD) Non-Af 57 (>60) L 10/22/23 11:45 Glucose 88 mg/dL (65-99) 10/22/23 11:45 Calcium 8.3 mg/dL (8.5-10.1) L 10/22/23 11:45 Corrected Calcium 9.4 mg/dL (8.5-10.1) 10/22/23 11:45 Total Bilirubin 0.30 mg/dL (0.2-1.0) 10/22/23 11:45 AST 93 Units/L (15-37) H 10/22/23 11:45 ALT 35 Units/L (12-78) 10/22/23 11:45 Alkaline Phosphatase 132 Units/L (46-116) H 10/22/23 11:45 Creatine Kinase 2759 Units/L (39-308) H 10/22/23 11:45 Troponin I High Sens 10.2 ng/L (4.0-60.0) 10/22/23 11:45 Total Protein 7.2 g/dL (6.4-8.2) 10/22/23 11:45 Albumin 2.6 g/dL (3.4-5.0) L 10/22/23 11:45 Globulin 4.6 g/dL (2.5-4.5) H 10/22/23 11:45 Albumin/Globulin Ratio 0.6 Ratio (1.1-2.1) L 10/22/23 11:45 Lipase 10 Units/L (16-77) L 10/22/23 11:45 Specimen Type Clean catch urine 10/22/23 11:28 Urine Color Yellow (YELLOW) 10/22/23 11:28 Urine Appearance Clear (CLEAR) 10/22/23 11:28 Urine pH 5.0 (5.0 - 8.0) 10/22/23 11:28 Ur Specific [place] 1.025 (1.000-1.030) 10/22/23 11:28 Urine Protein 3+ (NEGATIVE) 10/22/23 11:28 Urine Glucose (UA) Negative (NEGATIVE) 10/22/23 11:28 Urine Ketones Negative (NEGATIVE) 10/22/23 11:28 Urine Blood 3+ (NEGATIVE) 10/22/23 11:28 Urine Nitrite Negative (NEGATIVE) 10/22/23 11:28 Urine Bilirubin Negative (NEGATIVE) 10/22/23 11:28 Urine Urobilinogen Normal (NORMAL) 10/22/23 11:28 Ur Leukocyte Esterase Negative (NEGATIVE) 10/22/23 11:28 Urine RBC 0-2 /HPF (0-3) 10/22/23 11:28 Urine WBC None seen /HPF (0-5) 10/22/23 11:28 Ur Squamous Epith Cells Rare /HPF (NEGATIVE) 10/22/23 11:28 Urine Bacteria Negative /HPF (NEGATIVE) 10/22/23 11:28 Ur Culture Indicated? No/not indicated 10/22/23 11:28 Ethyl Alcohol mg/dL < 3 mg/dL (0-19.9) 10/22/23 11:45 EKG Rate: 101 Gay: Normal Rhythm: ST ST: Normal Opioid Opioid Risk Tool Age (Rajinder box if 16-45): No History of Preadolescent Sexual Abuse: No Total: 0 Total Score Risk Category: Low Risk Copyright: Vahid GUERRA predicting aberrant behaviors Discharge Plan Diagnosis Discharge Problem: Rhabdomyolysis Discharge Plan Patient Disposition: 09 ADMITTED INPATIENT Condition: Stable Orders to Discharge Patient Discharge Orders: Transfer (Routine); Ordered 10/22/23 Ordered By: Reyes Cortez
[2023-10-22] MEDS ORDERED: NS 1,000 ML IV 1,000 ML IV ONE ×2 (10:39→13:14)
[2023-10-22] MEDS ORDERED: NS 1,000 ML IV 1,000 ML ONE ×2 (10:48→13:16)
[2023-10-22 11:45] LABS: BILIRUBIN,URINE NEGATIVE (NEGATIVE); BLOOD/HEMOGLOBIN,URINE 3+ (NEGATIVE); GLUCOSE, URINE NEGATIVE (NEGATIVE); KETONES,URINE NEGATIVE (NEGATIVE); LEUKOCYTE ESTERASE ,URINE NEGATIVE (NEGATIVE); NITRITES,URINE NEGATIVE (NEGATIVE); PROTEIN,URINE 3+ (NEGATIVE); UROBILINOGEN,URINE NORMAL (NORMAL)
--- NOTE | 2023-10-22 11:46 | CT ---
EXAM:BRAIN W/O CONHISTORY:FALL, PAIN;COMPARISON:None.TECHNIQUE:Axial CT of the head is performed from the base of the skull through the vertex without contrast . Multiplaner reformats are generated from the original axial data.FINDINGS:No intracranial hemorrhage or extra-axial fluid collection. No mass effect, midline shift or evidence of cerebral edema. Normal size and morphology of the ventricles. No evidence of an acute stage, large artery territorial infarction. Multi chamber paranasal sinus mucosal thickening associated with the maxillary sinus chambers and ethmoidal air cells. Trace dependent right mastoid effusion. No skull fracture or extra calvarial soft tissue hematoma. No suprasellar asymmetry is identified. The cerebellar tonsils are normal in position. Craniocervical alignment is maintained.IMPRESSION:No acute intracranial abnormalitiesMulti chamber paranasal sinus mucosal thickening in keeping with chronic sinus diseaseRadiation dose reduction was achieved through individualized adjustment of kVP and/or mA, through adaptive statistical iterative reconstruction, and/or through automated tube current modulation.THIS IS AN ELECTRONICALLY VERIFIED FINAL [id number]/22/2023 11:43 AM - Electronically signed by Juventino Penaloza MD
[2023-10-22 11:47] LABS: APPEARANCE,URINE CLEAR (CLEAR); COLOR,URINE YELLOW (YELLOW)
--- NOTE | 2023-10-22 11:53 | CT ---
EXAM:LUMBAR SPINE W/O CONHISTORY:FALL, PAIN;COMPARISON:None.TECHNIQUE:Noncontra st CT of the lumbar spine is performed in the axial plane and reconstructed with multiplanar imaging.FINDINGS:Age-related symmetric perinephric stranding is demonstrated. No hydronephrosis of the right or left kidney. No retroperitoneal or paravertebral fluid collections are demonstrated. There is generalized athero sclerotic disease associated with the wall of the abdominal aorta, contiguous with the iliofemoral tributaries. Seminal vesicle calcifications are also observed and may be associated with diabetic condition. The SI joints are maintained without ankylosis. Multilevel endplate Schmorl's node defects are demonstrated.For the purposes of this dictation the 1st non rib-bearing lumbar type vertebral body segment is labeled as L1. There are 6 lumbar type vertebral body segments. The lowest well-formed disc space is labeled as L5-S1. There is a lumbar type S1 vertebral body segments. Intervertebral spacers are in place at L4-5 and L5-S1 and posterior midline laminectomy defects and bone graft material are noted at the level of postsurgical change. The sagittal alignment of the spine remains anatomic. The vertebral body heights are generally preserved. There are no perched or malaligned facets. Chronic surgical screw tracts are seen within the L4, L5 and lumbar type S1 segment indicating hardware that has been subsequently removed. No acute fractures or pars defects are identified.Moderate circumferential disc bulge at L3-L4 contributes to mild residual central spinal stenosis. Additionally, there is posterior compression of the thecal sac as result of presumed fibrous scar tissue of the upper margin of the laminectomy defect at the level of L3.Bulging discs, degenerative ridging and posterior osteophyte complexes of the endplates, and facet hypertrophy contribute to residual multilevel neural foraminal compromise. Notably, there is severe bilateral neural foraminal narrowing at L3-L4 and L4-L5, left more so than right, with mild compression of the exiting nerve roots. There is moderate neural foraminal narrowing bilaterally at L5-S1 and moderate bilateral neural foraminal compromise at L2-L3. There is mild bilateral neural foraminal compromise at T12-L1 and L1-L2.There are rib contour anomalies associated with the right posterior 11th and 12th ribs associated with old, healed fracture sites.IMPRESSION:No acute lumbar spine fracture or posttraumatic subluxationChronic age related degenerative findings of the lumbar spine associated with central spinal stenosis and multilevel neural foraminal compromise, as detailed abovePostsurgical changes of fusion with intervertebral spacer placement at L4-5 and L5-S1. Midline laminectomy defects are observed.THIS IS AN ELECTRONICALLY VERIFIED FINAL [id number]/22/2023 11:50 AM - Electronically signed by Juventino Penaloza MD
[2023-10-22 11:54] LABS: BASOPHILS # (AUTO) 0.1 X10^3/uL (0.0-0.1); BASOPHILS % (AUTO) 0.6 % (0.2-1.0); EOSINOPHILS # (AUTO) 0.1 x10^3/uL (0.0-0.2); EOSINOPHILS % (AUTO) 0.8 % (0.9-2.9); HEMATOCRIT 31.4 % (42.0-54.0); HEMOGLOBIN 10.6 g/dL (13.5-18.0); LYMPHOCYTES # (AUTO) 1.6 X10^3/uL (1.3-2.9); LYMPHOCYTES % (AUTO) 14.4 % (21.0-51.0); MEAN CORPUSCULAR HEMOGLOBIN 34.7 pg (27.0-34.0); MEAN CORPUSCULAR HGB CONC 33.6 g/dL (33.0-35.0); MEAN CORPUSCULAR VOLUME 103.1 fL (80.0-100.0); MEAN PLATELET VOLUME 7.1 fL (7.4-11.0); MONOCYTES # (AUTO) 0.8 x10^3/uL (0.3-0.8); MONOCYTES % (AUTO) 6.7 % (0.0-13.0); NEUTROPHILS # (AUTO) 8.8 x10^3/uL (2.2-4.8); NEUTROPHILS % (AUTO) 77.5 % (42.0-75.0); PLATELET COUNT 483 X10^3/uL (150.0-450.0); RED BLOOD COUNT 3.05 X10^6/uL (4.7-6.0); RED CELL DISTRIBUTION WIDTH 16.5 % (11.6-16.5); WHITE BLOOD COUNT 11.3 X10^3/uL (3.6-10.0)
[2023-10-22 11:55] LABS: BACTERIA,URINE NEGATIVE /HPF (NEGATIVE); RBC,URINE 0-2 /HPF (0-3); SQUAMOUS EPITHELIAL CELL,UR RARE /HPF (NEGATIVE)
[2023-10-22 12:22] LABS: ALANINE AMINOTRANSFERASE 35 Units/L (12-78); ALBUMIN 2.6 g/dL (3.4-5.0); ALKALINE PHOSPHATASE 132 Units/L (46-116); ASPARTATE AMINO TRANSFERASE 93 Units/L (15-37); BLOOD ALCOHOL < 3 mg/dL (0-19.9); BLOOD UREA NITROGEN 26 mg/dL (7-18); CALCIUM 8.3 mg/dL (8.5-10.1); CHLORIDE 104 mmol/L (98-107); COR CA(FOR HYPOALB) 9.4 mg/dL (8.5-10.1); CREATININE 1.39 mg/dL (0.70-1.30); GLUCOSE 88 mg/dL (65-99); LIPASE 10 Units/L (16-77); POTASSIUM 3.9 mmol/L (3.5-5.1); SODIUM 139 mmol/L (136-145); TOTAL PROTEIN 7.2 g/dL (6.4-8.2); eGFR NON BLACK RACES 57 (>60)
[2023-10-22 12:23] LABS: CREATINE KINASE 2759 Units/L (39-308)
--- NOTE | 2023-10-22 14:18 | RAD ---
EXAM:HIP, LEFTHISTORY:FALL, PAIN;COMPARISON:None.TECHNIQUE:AP view of the pelvis and frogleg lateral view of the left hipFINDINGS:Normal anatomic alignment of the pelvis. No diastasis of the SI joints or symphysis pubis. There is no evidence of an acute fracture or cortical stress reaction. There is no plain film evidence of AVN associated with femoral heads. There is mild degenerative lipping of the acetabular rims. Subchondral cystic changes of the acetabular rim are demonstrated bilaterally. There is mild symmetric joint space narrowing of the medial aspect of the bilateral femoroacetabular joints. Athero sclerotic peripheral vascular calcifications are noted. Interbody cages are seen at L4-5 and L5-S1 with midline laminectomy defects. Posterior bone graft material is in place around the facet joints.IMPRESSION:No acute fracture or dislocation of the pelvis/left hipSymmetric bilateral hip osteoarthrosisPostsurgical changes of the lumbar spine at L4-5 and L5-S1THIS IS AN ELECTRONICALLY VERIFIED FINAL [id number]/22/2023 2:14 PM - Electronically signed by Juventino Penaloza MD
--- NOTE | 2023-10-22 14:19 | RAD ---
EXAM:WRIST, LEFTHISTORY:FALL, PAIN;COMPARISON:None.TECHNIQUE:Limited two view left wrist x-ray seriesFINDINGS:Normal anatomic alignment of the left wrist. Soft tissue swelling is seen along the dorsal and medial aspect of the wrist. Carpal spacing and alignment remain normal. No acute fractures. Dense peripheral artery athero sclerotic calcifications are demonstrated.IMPRESSION:Soft tissue swelling of the dorsal and medial aspect of the left wrist and forearm without evidence of an acute fracture or dislocation.Peripheral artery atherosclerosisTHIS IS AN ELECTRONICALLY VERIFIED FINAL [id number]/22/2023 2:15 PM - Electronically signed by Juventino Penaloza MD
--- NOTE | 2023-10-22 15:11 | EKG ---
Test Reason : leg numbness Blood Pressure : */* mmHG Vent. Rate : 101 BPM Atrial Rate : 101 BPM P-R Int : 120 ms QRS Dur : 74 ms QT Int : 334 ms P-R-T Axes : 52 9 65 degrees QTc Int : 433 ms Sinus tachycardia Otherwise normal ECG No previous ECGs available Confirmed by Pierre Orona ([id number]) on 10/22/2023 3:59:12 PM Referred By: Confirmed By: Pierre Orona
[2023-10-22] MEDS ORDERED: CONSULT PHARMACY - POTASSIUM & MAGNESIUM XX SCH (17:19)
[2023-10-22] MEDS ORDERED: PATIENT'S HOME MEDICATION (Alprazolam 1 mg tablet) PO PRN (17:19)
[2023-10-22] MEDS ORDERED: PATIENT'S HOME MEDICATION (Temazepam 30 mg capsule) PO PRN (17:19)
--- NOTE | 2023-10-22 17:31 | RAD ---
EXAM:RIB SERIES four view left with frontal chestHISTORY:FALL, PAIN ;COMPARISON:None.FINDINGS:The cardiomediastinal silhouette is unremarkable. No acute airspace disease or effusion. The bony thorax is unremarkable.Left 8th and 9th rib fractures. No underlying pneumothorax.IMPRESSION:1. No acute cardiopulmonary process.2. Left 8th and 9th rib fractures.THIS IS AN ELECTRONICALLY VERIFIED FINAL [id number]/22/2023 5:27 PM - Electronically signed by Willian Lemons MD
[2023-10-22] MEDS ORDERED: RESTORIL CAP 30 MG PO PRN (17:44)
[2023-10-22] MEDS: HumuLIN 70/30 (NovoLIN 70/30) SC SCH (17:52)
[2023-10-22] MEDS ORDERED: ZOFRAN INJ 4 MG VIAL IVP PRN (17:52)
[2023-10-22] MEDS ORDERED: APRESOLINE INJ 20 MG VIAL IVP ONE (17:55)
[2023-10-22] MEDS: MORPHINE SULFATE INJ 2 MG INJ IVP PRN ×2 (18:20→22:06)
[2023-10-22] MEDS: ZOFRAN INJ 4 MG VIAL IVP PRN (18:22)
[2023-10-22] MEDS: NS 1,000 ML IV 1,000 ML IV SCH (18:23)
[2023-10-22] MEDS: NORCO 10/325 TAB PO PRN (19:23)
[2023-10-22] MEDS: SNACK - Diabetic Appropriate PO SCH (20:10)
[2023-10-22] MEDS: COREG TAB 25 MG PO SCH (20:29)
[2023-10-22] MEDS: XANAX PO PRN (20:29)
[2023-10-23] MEDS: NS 1,000 ML IV 1,000 ML IV SCH ×4 (01:07→18:10)
[2023-10-23] MEDS: MORPHINE SULFATE INJ 2 MG INJ IVP PRN ×4 (03:36→18:18)
[2023-10-23] MEDS ORDERED: D50W ABBOJECT SYR ONE (04:26)
[2023-10-23] MEDS ORDERED: D50W ABBOJECT SYR IV ONE (04:28)
[2023-10-23 04:48] LABS: BASOPHILS # (AUTO) 0.1 X10^3/uL (0.0-0.1); BASOPHILS % (AUTO) 1.3 % (0.2-1.0); EOSINOPHILS # (AUTO) 0.2 x10^3/uL (0.0-0.2); EOSINOPHILS % (AUTO) 2.1 % (0.9-2.9); HEMATOCRIT 27.7 % (42.0-54.0); HEMOGLOBIN 9.2 g/dL (13.5-18.0); LYMPHOCYTES # (AUTO) 2.1 X10^3/uL (1.3-2.9); LYMPHOCYTES % (AUTO) 21.1 % (21.0-51.0); MEAN CORPUSCULAR HEMOGLOBIN 34.3 pg (27.0-34.0); MEAN CORPUSCULAR HGB CONC 33.1 g/dL (33.0-35.0); MEAN CORPUSCULAR VOLUME 103.6 fL (80.0-100.0); MEAN PLATELET VOLUME 7.5 fL (7.4-11.0); MONOCYTES # (AUTO) 0.7 x10^3/uL (0.3-0.8); MONOCYTES % (AUTO) 6.7 % (0.0-13.0); NEUTROPHILS # (AUTO) 6.9 x10^3/uL (2.2-4.8); NEUTROPHILS % (AUTO) 68.8 % (42.0-75.0); PLATELET COUNT 481 X10^3/uL (150.0-450.0); RED BLOOD COUNT 2.67 X10^6/uL (4.7-6.0); RED CELL DISTRIBUTION WIDTH 16.3 % (11.6-16.5); WHITE BLOOD COUNT 10.1 X10^3/uL (3.6-10.0)
[2023-10-23 05:06] LABS: ALANINE AMINOTRANSFERASE 37 Units/L (12-78); ALBUMIN 2.1 g/dL (3.4-5.0); ALKALINE PHOSPHATASE 115 Units/L (46-116); ASPARTATE AMINO TRANSFERASE 83 Units/L (15-37); BLOOD UREA NITROGEN 18 mg/dL (7-18); CALCIUM 7.7 mg/dL (8.5-10.1); CARBON DIOXIDE 24.7 mmol/L (21-32); CHLORIDE 108 mmol/L (98-107); COR CA(FOR HYPOALB) 9.2 mg/dL (8.5-10.1); CREATININE 0.98 mg/dL (0.70-1.30); GLUCOSE 42 mg/dL (65-99); POTASSIUM 4.6 mmol/L (3.5-5.1); SODIUM 140 mmol/L (136-145); TOTAL PROTEIN 6.2 g/dL (6.4-8.2); eGFR NON BLACK RACES > 60 (>60)
[2023-10-23 05:07] LABS: CREATINE KINASE 1624 Units/L (39-308)
[2023-10-23] MEDS: HumuLIN 70/30 (NovoLIN 70/30) SC SCH (06:12)
[2023-10-23] MEDS ORDERED: CONSULT PHARMACY - POTASSIUM & MAGNESIUM XX SCH (07:00)
[2023-10-23] MEDS: NORVASC TAB 10 MG PO SCH (09:25)
[2023-10-23] MEDS: ZESTRIL TAB 40 MG PO SCH (09:26)
[2023-10-23] MEDS: LIPITOR TAB 40 MG PO SCH (09:26)
[2023-10-23] MEDS: COREG TAB 25 MG PO SCH ×2 (09:26→20:31)
[2023-10-23] MEDS: NORCO 10/325 TAB PO PRN ×2 (10:49→20:32)
[2023-10-23] MEDS: MAG-OX TAB PO SCH ×4 (10:50→15:12)
[2023-10-23] MEDS: NovoLIN R (or HumuLIN R) SC PRN (12:06)
[2023-10-23] MEDS: XANAX PO PRN (20:31)
[2023-10-23] MEDS: RESTORIL CAP 15 MG PO PRN (20:32)
[2023-10-23] MEDS: SNACK - Diabetic Appropriate PO SCH (21:08)
[2023-10-24] MEDS: MORPHINE SULFATE INJ 2 MG INJ IVP PRN ×5 (00:35→23:40)
[2023-10-24] MEDS: NS 1,000 ML IV 1,000 ML IV SCH ×3 (00:35→17:17)
[2023-10-24] MEDS: NORCO 10/325 TAB PO PRN (04:21)
[2023-10-24 06:04] LABS: BASOPHILS # (AUTO) 0.1 X10^3/uL (0.0-0.1); BASOPHILS % (AUTO) 1.3 % (0.2-1.0); EOSINOPHILS # (AUTO) 0.3 x10^3/uL (0.0-0.2); EOSINOPHILS % (AUTO) 2.8 % (0.9-2.9); HEMATOCRIT 24.4 % (42.0-54.0); LYMPHOCYTES % (AUTO) 21.7 % (21.0-51.0); MEAN CORPUSCULAR HEMOGLOBIN 34.3 pg (27.0-34.0); MEAN CORPUSCULAR HGB CONC 32.9 g/dL (33.0-35.0); MEAN CORPUSCULAR VOLUME 104.4 fL (80.0-100.0); MEAN PLATELET VOLUME 7.6 fL (7.4-11.0); MONOCYTES # (AUTO) 0.7 x10^3/uL (0.3-0.8); MONOCYTES % (AUTO) 7.8 % (0.0-13.0); NEUTROPHILS # (AUTO) 6.3 x10^3/uL (2.2-4.8); NEUTROPHILS % (AUTO) 66.4 % (42.0-75.0); PLATELET COUNT 400 X10^3/uL (150.0-450.0); RED BLOOD COUNT 2.34 X10^6/uL (4.7-6.0); RED CELL DISTRIBUTION WIDTH 16.4 % (11.6-16.5); WHITE BLOOD COUNT 9.4 X10^3/uL (3.6-10.0)
[2023-10-24 06:21] LABS: ALANINE AMINOTRANSFERASE 33 Units/L (12-78); ALBUMIN 2.1 g/dL (3.4-5.0); ALKALINE PHOSPHATASE 119 Units/L (46-116); ASPARTATE AMINO TRANSFERASE 40 Units/L (15-37); BLOOD UREA NITROGEN 19 mg/dL (7-18); CALCIUM 8.2 mg/dL (8.5-10.1); CARBON DIOXIDE 22.8 mmol/L (21-32); CHLORIDE 107 mmol/L (98-107); COR CA(FOR HYPOALB) 9.7 mg/dL (8.5-10.1); COR NA(FOR HYPERGLY) 139 mmol/L (136-145); CREATINE KINASE 815 Units/L (39-308); CREATININE 1.04 mg/dL (0.70-1.30); GLUCOSE 155 mg/dL (65-99); MAGNESIUM 1.8 mg/dL (2.0-2.9); POTASSIUM 5.1 mmol/L (3.5-5.1); SODIUM 138 mmol/L (136-145); TOTAL PROTEIN 5.9 g/dL (6.4-8.2); eGFR NON BLACK RACES > 60 (>60)
[2023-10-24] MEDS ORDERED: CONSULT PHARMACY - POTASSIUM & MAGNESIUM XX SCH (07:00)
[2023-10-24] MEDS: MAG-OX TAB PO SCH ×3 (08:27→20:59)
[2023-10-24] MEDS: COREG TAB 25 MG PO SCH ×2 (08:27→20:51)
[2023-10-24] MEDS: LIPITOR TAB 40 MG PO SCH (08:27)
[2023-10-24] MEDS: NORVASC TAB 10 MG PO SCH (08:27)
[2023-10-24] MEDS: ZESTRIL TAB 40 MG PO SCH (08:27)
[2023-10-24] MEDS: NovoLIN R (or HumuLIN R) SC PRN ×2 (17:02→20:56)
[2023-10-24] MEDS: SNACK - Diabetic Appropriate PO SCH (20:19)
[2023-10-24] MEDS: RESTORIL CAP 15 MG PO PRN (21:55)
[2023-10-25] MEDS: MORPHINE SULFATE INJ 2 MG INJ IVP PRN ×4 (04:28→21:17)
[2023-10-25] MEDS: NS 1,000 ML IV 1,000 ML IV SCH ×4 (06:20→23:30)
[2023-10-25] MEDS: NovoLIN R (or HumuLIN R) SC PRN ×3 (06:20→21:29)
[2023-10-25 06:21] LABS: BASOPHILS # (AUTO) 0.1 X10^3/uL (0.0-0.1); BASOPHILS % (AUTO) 1.4 % (0.2-1.0); EOSINOPHILS # (AUTO) 0.3 x10^3/uL (0.0-0.2); EOSINOPHILS % (AUTO) 2.6 % (0.9-2.9); HEMATOCRIT 24.8 % (42.0-54.0); HEMOGLOBIN 8.2 g/dL (13.5-18.0); LYMPHOCYTES # (AUTO) 1.8 X10^3/uL (1.3-2.9); LYMPHOCYTES % (AUTO) 18.2 % (21.0-51.0); MEAN CORPUSCULAR HEMOGLOBIN 34.4 pg (27.0-34.0); MEAN CORPUSCULAR HGB CONC 32.9 g/dL (33.0-35.0); MEAN CORPUSCULAR VOLUME 104.5 fL (80.0-100.0); MONOCYTES # (AUTO) 0.7 x10^3/uL (0.3-0.8); MONOCYTES % (AUTO) 7.4 % (0.0-13.0); NEUTROPHILS # (AUTO) 7.1 x10^3/uL (2.2-4.8); NEUTROPHILS % (AUTO) 70.4 % (42.0-75.0); PLATELET COUNT 401 X10^3/uL (150.0-450.0); RED BLOOD COUNT 2.37 X10^6/uL (4.7-6.0); RED CELL DISTRIBUTION WIDTH 16.2 % (11.6-16.5); WHITE BLOOD COUNT 10.1 X10^3/uL (3.6-10.0)
[2023-10-25 06:43] LABS: ALANINE AMINOTRANSFERASE 28 Units/L (12-78); ALBUMIN 2.2 g/dL (3.4-5.0); ALKALINE PHOSPHATASE 120 Units/L (46-116); ASPARTATE AMINO TRANSFERASE 32 Units/L (15-37); BLOOD UREA NITROGEN 20 mg/dL (7-18); CALCIUM 8.7 mg/dL (8.5-10.1); CARBON DIOXIDE 22.9 mmol/L (21-32); CHLORIDE 105 mmol/L (98-107); COR CA(FOR HYPOALB) 10.1 mg/dL (8.5-10.1); COR NA(FOR HYPERGLY) 140 mmol/L (136-145); CREATININE 1.07 mg/dL (0.70-1.30); GLUCOSE 220 mg/dL (65-99); POTASSIUM 5.2 mmol/L (3.5-5.1); SODIUM 137 mmol/L (136-145); TOTAL PROTEIN 6.2 g/dL (6.4-8.2); eGFR NON BLACK RACES > 60 (>60)
[2023-10-25] MEDS: COREG TAB 25 MG PO SCH ×2 (08:38→21:16)
[2023-10-25] MEDS: NORVASC TAB 10 MG PO SCH (08:38)
[2023-10-25] MEDS: LIPITOR TAB 40 MG PO SCH (08:38)
[2023-10-25] MEDS: ZESTRIL TAB 40 MG PO SCH (08:38)
[2023-10-25] MEDS ORDERED: MULTIHANCE INJ VIAL ONE (09:37)
[2023-10-25] MEDS ORDERED: MAGNESIUM SULFATE 1 GRAM/100 mL PREMIX 1 G/100 ML BAG IV ONE (10:08)
[2023-10-25] MEDS: ZOFRAN INJ 4 MG VIAL IVP PRN (10:31)
[2023-10-25] MEDS: NORCO 10/325 TAB PO PRN ×2 (11:57→18:08)
--- NOTE | 2023-10-25 16:51 | DR.H&P ---
H&P - History & Physical for Day of: H&P Date: 10/22/23 - Chief Complaint Chief Complaint: WEAKNESS, UNSTEADY GAIT, LEFT SIDED RIB PAIN, LEFT HIP PAIN, LEFT UPPER EXTREMITY PAIN AND NUMBNESS, LEFT WRIST PAIN, AND RIGHT LEG NUMBNESS FOLLOWING A FALL - History of Present Illness History of Present Illness: IS A 53 YEAR OLD PATIENT OF [employer]. HE PRESENTED TO [facility] ER WITH COMPLAINTS OF LEFT SIDED RIB PAIN, LEFT HIP PAIN, LEFT UPPER EXTREMITY PAIN AND NUMBNESS, LEFT WRIST PAIN, AND RIGHT LEG NUMBNESS FOLLOWING A FALL. PATIENT REPORTS HEAVY DRINKING 3 NIGHTS AGO. HE FELL AND LANDED ON HIS LEFT SIDE. HE DOES NOT KNOW HOW LONG HE WAS ON THE FLOOR. HE ADMITS TO MODERATE WEAKNESS AND UNSTEADY GAIT. ON EXAMINATION, HE WAS NOTED TO HAVE A HEMATOMA AND ABRASIONS TO THE LEFT FOREARM. HIS PMH INCLUDES CHF, CAD, DM II, GERD, HTN, RENAL DISEASE, CARDIAC STENTS. ON ARRIVAL TO THE HOSPITAL, HIS VITALS WERE: 98.4-93-22-99%-181/91. LABS WERE OBTAINED. WBC 11.3, RBC 3.05, HGB 10.6, HCT 31.4, PLT COUNT 483, SODIUM 139, POTASSIUM 3.9, CHLORIDE 104, CARBON DIOXIDE 24.0, BUN 26, CREATININE 1.39, GLUCOSE 88, CALCIUM 8.3, TOTAL BILI 0.30, AST 93, ALT 35, ALK PHOS 132, CREATINE KINASE 2759, TROPONIN 10.2, TOTAL PROTEIN 7.2, ALBUMIN 2.6, LIPASE 10. A URINALYSIS WAS OBTAINED AND REVEALED: WBC NONE SEEN, RBC 0-2, BLOOD 3+, BACTERIA NEGATIVE, LEUKOCYTES NEGATIVE. ALCOHOL NEGATIVE. A BRAIN CT WITHOUT CONTRAST WAS OBTAINED AND REVEALED: No acute intracranial abnormalities. Multi chamber paranasal sinus mucosal thickening in keeping with chronic sinus disease. A LEFT HIP XRAY WAS OBTAINED AND REVEALED: No acute fracture or dislocation of the pelvis/left hip. Symmetric bilateral hip osteoarthrosis. Postsurgical changes of the lumbar spine at L4-5 and L5-S1. A LUMBAR SPINE CT WITHOUT CONTRAST WAS OBTAINED AND REVEALED: No acute lumbar sp ine fracture or posttraumatic subluxation. Chronic age related degenerative findings of the lumbar spine associated with central spinal stenosis and multilevel neural foraminal compromise. Postsurgical changes of fusion with intervertebral spacer placement at L4-5 and L5-S1. Midline laminectomy defects are observed. A RIB SERIES WITH CHEST XRAY WAS OBTAINED AND REVEALED: 1. No acute cardiopulmonary process. 2. Left 8th and 9th rib fractures. EKG OBTAINED AND REVEALED: SINUS TACHYCARDIA WITH HR 101 BPM. IN THE ER, SHE WAS GIVEN A NORMAL SALINE BOLUS X 2 LITERS, APRESOLINE 10MG IV X 1. HIS BLOOD PRESSURE DECREASED TO 166/86. HE WAS ADMITTED TO THE HOSPTIAL FOR FURTHER EVALUATION AND TREATMENT OF RHABDOMYELITIS, LOWER EXTREMITY WEAKNESS, UNSTEADY GAIT, HTN, DM II. HE WAS STARTED ON NORMAL SALINE AT 150 ML/HR, OTBS ACHS, HUMULIN R SLIDING SCALE, MORPHINE SULFATE 1-2MG IV Q4H PRN, ZOFRAN 4MG IV Q8H, AND HIS HOME MEDICATIONS WERE RESUMED. HOME MEDS INCLUDE: XANAX, NORVASC, LIPITOR, COREG, N ORCO, ZESTRIL, RESTORIL, AND HUMULIN 70/30 35 UNITS TID WM. WE WILL HAVE PHYSICAL THERAPY EVALUATE HIM. OTHERWISE, WE WILL FOLLOW-UP WITH AM LABS AND CONTINUE TO MONITOR. TIME SPENT ON CLINICAL ASSESSMENT, REVIEWING LABS AND IMAGING, DECISION MAKING, AND DOCUMENTATION GREATER THAN 75 MINUTES. - Past Medical History Past Medical History: Coronary Artery Disease, Hypertension, Diabetes, Renal Disease, GERD, CHF - Past Surgical History Surgical History: Angioplasty/Stents, Ortho Surgery, Other - Family History Family Medical History: Diabetes Mellitus, Cancer, [place], Coronary Artery Disease, Heart Failure, Hypertension - Social History Does patient currently use any type of tobacco product: Yes Have you used tobacco products in the last 12 months: Yes Type of Tobacco Use: Cigarettes Does any household member use tobacco: No Alcohol Use: Occasionally Drug Use: None - Review of Systems Constitutional: Weakness Eyes: No Symptoms Reported ENT: No Symptoms Reported Respiratory: No Symptoms Reported Cardiovascular: No Symptoms Reported Gastrointestinal: No Symptoms Reported Genitourinary: No Symptoms Reported Musculoskeletal: See HPI, Leg Pain, Other (LEFT SIDED RIB PAIN, LEFT HIP PAIN, LEFT WRIST PAIN) Skin: No Symptoms Reported Neurological: Weakness - Physical Exam Vital Signs: Vital Signs Temperature 98.3 F Temperature 97.9 F Pulse Rate [Brachial] 91 Pulse Rate [Brachial] 90 Respiratory Rate 20 Respiratory Rate 20 Respiratory Rate 18 Respiratory Rate 18 Respiratory Rate 20 Respiratory Rate 20 Respiratory Rate 20 Blood Pressure [Right Arm] 175/79 Blood Pressure [Right Arm] 133/66 Blood Pressure [Right Arm] 161/76 O2 Sat by Pulse Oximetry 97 O2 Sat by Pulse Oximetry 97 Oriented: Normal Eyes: Normal Ear: Normal Nose: Normal Throat: Normal Respiratory: Diminished Throughout Cardiovascular: Tachycardia : Normal Auscultation: Bowel Sounds: Normal Palpation: Normal Tenderness: Normal Skin: Normal Musculoskeletal: Normal Psychiatric: Normal Mood Description: Calm Affect: Normal Speech Pattern: Clear - Assessment/Plan (1) Rhabdomyolysis Qualifiers: Rhabdomyolysis type: traumatic Encounter type: initial encounter Qualified Code(s): T79.6XXA - Traumatic ischemia of muscle, initial encounter Status: Acute Plan: ADMIT, NORMAL SALINE AT 150 ML/HR, OTBS ACHS, HUMULIN R SLIDING SCALE, MORPHINE SULFATE 1-2MG IV Q4H PRN, ZOFRAN 4MG IV Q8H, AND HIS HOME MEDICATIONS WERE RESUMED. (2) Lower extremity weakness Qualifiers: Laterality: bilateral Qualified Code(s): R29.898 - Other symptoms and signs involving the musculoskeletal system Status: Acute Plan: PHYSICAL THERAPY (3) Unsteady gait Status: Acute Plan: PHYSICAL THERAPY (4) Hypertension Qualifiers: Hypertension type: primary hypertension Qualified Code(s): I10 - Essential (primary) hypertension Status: Chronic Plan: CONTINUE NORVASC, COREG, ZESTRIL (5) Diabetes mellitus Qualifiers: Diabetes mellitus type: type 2 Diabetes mellitus snf insulin use: with snf use Diabetes mellitus complication status: with hyperglycemia Qualified Code(s): E11.65 - Type 2 diabetes mellitus with hyperglycemia; Z79.4 - terminal manager (current) use of insulin Status: Chronic Plan: OTBS ACHS, HUMULIN R SLIDING SCALE (6) Generalized anxiety disorder Status: Chronic Plan: STABLE. CONTINUE XANAX - Allergies Allergies/Adverse Reactions: Allergies Allergy/AdvReac Type Severity Reaction Status Date / Time No Known Drug Allergies Allergy Verified 08/14/19 11:39 - Medications Home Medications: Home Medications Medication Instructions Recorded Confirmed insulin human U-100 NPH-regulr 35 unit subcut TIDWM 04/03/21 10/22/23 70-30 mix 100 unit/mL subcutaneous susp (Novolin 70/30 U-100 Insulin) alprazolam 1 mg tablet 1 tab PO BID PRN 08/22/22 10/22/23 amlodipine 10 mg tablet 1 tab PO QDAY 08/22/22 10/22/23 furosemide 20 mg tablet 1 tab PO QDAY 08/22/22 10/22/23 hydrocodone 10 mg-acetaminophen 1 tab PO BID PRN 08/22/22 10/22/23 325 mg tablet lisinopril 40 mg tablet 1 tab PO QDAY 08/22/22 10/22/23 temazepam 30 mg capsule 1 cap PO QPM PRN 08/22/22 10/22/23 atorvastatin 40 mg tablet 40 mg PO QDAY 10/22/23 10/22/23 carvedilol 25 mg tablet 25 mg PO BID 10/22/23 10/22/23 sildenafil 100 mg tablet 100 mg PO DAILY 10/22/23 10/22/23
--- NOTE | 2023-10-25 19:18 | MRI ---
EXAM:LUMBAR W&W/O CONHISTORY:Numbness in RT leg, Low back pain Contrast-Multihance 18cc injected into right wrist IV, Lot# [id number] -APRIL 2026 CREATININE-1.07 GFR-72.9;COMPARISON:None.TECHNIQUE:Multi planar multisequence MRI of the lumbar spine was obtained utilizing standard departmental protocol.FINDINGS:Conus Medullaris: Above the L2/L3 disk level.Disks: Dessication noted.Vertebral bodies: No evidence of compression fractures.Level by level:T11-T12: No significant stenosis.T12-L1: No significant stenosis.L1-L2: No significant stenosis.L2-L3: No significant stenosis.L3-L4: Mild central canal stenosis with the AP dimension thecal sac of 8 mm primarily from a diffuse bulge and ligamentum flavum thickening. Facet arthropathy. [id number] bilateral neural foraminal narrowing.L4-L5: No significant stenosis. Moderate bilateral neural foraminal narrowing. Suspect interbody fusion.L5-S1: No significant stenosis. Mild bilateral neural foraminal narrowing. Suspected interbody fusion.Postsurgical changes at the L5-S1 level with interbody fusion and possibly posterior decompression.IMPRESSION:1. Multilevel multifactorial spondylosis as above worse at L3-L4.2. Postsurgical changes at the L5-S1 level with interbody fusion and possibly posterior decompression.3. 25 x 10 mm, axial dimension, sagittal dimension 25 x 9 mm posterior fluid collection at the L5 level most likely a post operative fluid collection. A seroma or old hematoma is primarily consideration. The diagnosis occlusion would be an abscess.Please see detailed level by level analysis above.Lumbar disc nomenclature: version 2.0. Recommendations of the combined task forces of the [place] [employer], the [place] [employer] and the [place] [employer]ad[employer], 2014.THIS IS AN ELECTRONICALLY VERIFIED FINAL [id number]/25/2023 7:15 PM - Electronically signed by Derian Francis DO
--- NOTE | 2023-10-25 19:43 | PCM.PROG ---
Progress Note - Progress Note for Day of Date of Exam: 10/24/23 - Subjective Subjective: IS CURRENTLY INPATIENT STATUS FOR TREATMENT OF RHABDOMYOLYSIS, LOWER EXTREMITY WEAKNESS, UNSTEADY GAIT, HTN, DM II, AND GENERALIZED ANXIETY DISORDER. HE HAS A PMH OF CHF, CAD, DM II, GERD, HTN, RENAL DISEASE, CARDIAC STENTS. TODAY, HE IS ALERT AND ORIENTED, LYING IN BED ON MORNING ROUNDS. HE REPORTS HAVING AN UNEVENTFUL NIGHT, ALTHOUGH HE DID HAVE MULTIPLE EPISODES OF HYPOGLYCEMIA YESTERDAY. HE CONTINUES WITH COMPLAINTS OF PAIN TO THE LEFT UPPER AND LOWER EXTREMITIES, LEFT SIDE RIBS, AND ALSO REPORTS LOW BACK PAIN THIS MORNING. ON EXAMINATION, HEART IS REGULAR IN RATE AND RHYTHM. BILATERAL LUNGS ARE NOTED WITH DIMINISHED LUNG SOUNDS THROUGHOUT. ABDOMEN IS ROUND, SOFT, AND NON-TENDER WITH NORMAL BOWEL SOUNDS NOTED IN ALL QUADRANTS. THERE IS TENDERNESS NOTED TO THE LUMBAR SPINE. GOOD RANGE OF MOTION NOTED TO UPPER AND LOWER EXTREMITIES WITH NO EDEMA NOTED. HIS VITALS THIS MORNING ARE: 98.6-88-20-98%-141/70. LABS WERE OBTAINED. WBC 9.4, RBC 2.34, HGB 8.0, HCT 24.4, PLT COUNT 400, SODIUM 138, POTASSIUM 5.1, CHLORIDE 107, CARBON DIOXIDE 22.8, BUN 19, CREATININE 1.04, GLUCOSE 155, CALCIUM 8.2, MAGNEISUM 1.8, AST 40, ALT 33, ALK PHOS 119, CREATINE KINASE 815, TOTAL PROTEIN 5.9, ALBUMIN 2.1. HE IS CURRENTLY RECEIVING NORMAL SALINE AT 150 ML/HR, OTBS ACHS, HUMULIN R SLIDING SCALE, MORPHINE SULFATE 1-2MG IV Q4H PRN, ZOFRAN 4MG IV Q8H, AND HIS HOME MEDICATIONS WERE RESUMED. HOME MEDS INCLUDE: XANAX, NORVASC, LIPITOR, COREG, NORCO, ZESTRIL, AND RESTORIL. WE HAVE DISCONTINUED HIS 70/30 INSULIN DUE TO HYPOGLYCEMIC EPISODES. OTHERWISE, WE WILL FOLLOW-UP WITH AM LABS AND CONTINUE TO MONITOR. TIME SPENT ON CLINICAL ASSESSMENT, REVIEWING LABS AND IMAGING, DECISION MAKING, AND DOCUMENTATION GREATER THAN 45 MINUTES. - Past Medical Family Social History Past Med/Fam/Surg Hx: No changes since H&P Allergies: Allergies No Known Drug Allergies Allergy (Verified 08/14/19 11:39) - Review of Systems ROS: No change since H&P - Vital Signs and I&O's Vital Signs: Vital Signs Temperature 98.3 F Temperature 97.9 F Pulse Rate [Brachial] 91 Pulse Rate [Brachial] 90 Respiratory Rate 20 Respiratory Rate 20 Respiratory Rate 20 Respiratory Rate 18 Respiratory Rate 18 Respiratory Rate 20 Respiratory Rate 20 Blood Pressure [Right Arm] 175/79 Blood Pressure [Right Arm] 133/66 O2 Sat by Pulse Oximetry 97 O2 Sat by Pulse Oximetry 97 Intake and Output: Intake & Output 10/23/23 10/24/23 10/25/23 10/26/23 11:59 11:59 11:59 11:59 Intake Total 2672 / 2672 3603 / 3603 2406 / 2406 1080 / 1080 Output Total 1000 / 1000 2450 / 2450 2750 / 2750 1900 / 1900 Balance 1672 / 1672 1153 / 1153 -344 / -344 -820 / -820 - Physical Exam Oriented: Normal Eyes: Normal Ear: Normal Nose: Normal Throat: Normal Respiratory: Generalized, Diminished Cardiovascular: Normal : Normal Auscultation: Bowel Sounds: Normal Palpation: Normal Tenderness: Normal Skin: Normal Musculoskeletal: Normal Psychiatric: Normal Mood Description: Calm Affect: Normal Speech Pattern: Clear - Laboratory and Diagnostics Result Diagrams: 10/25/23 05:09 10/25/23 05:09 Labs: Laboratory WBC 10.1 X10^3/uL (3.6-10.0) H 10/25/23 05:09 RBC 2.37 X10^6/uL (4.7-6.0) L 10/25/23 05:09 Hgb 8.2 g/dL (13.5-18.0) L 10/25/23 05:09 Hct 24.8 % (42.0-54.0) L 10/25/23 05:09 MCV 104.5 fL (80.0-100.0) H 10/25/23 05:09 MCH 34.4 pg (27.0-34.0) H 10/25/23 05:09 MCHC 32.9 g/dL (33.0-35.0) L 10/25/23 05:09 RDW 16.2 % (11.6-16.5) 10/25/23 05:09 Plt Count 401 X10^3/uL (150.0-450.0) 10/25/23 05:09 MPV 8.0 fL (7.4-11.0) 10/25/23 05:09 Neut % (Auto) 70.4 % (42.0-75.0) 10/25/23 05:09 Lymph % (Auto) 18.2 % (21.0-51.0) L 10/25/23 05:09 [place] % (Auto) 7.4 % (0.0-13.0) 10/25/23 05:09 Eos % (Auto) 2.6 % (0.9-2.9) 10/25/23 05:09 Baso % (Auto) 1.4 % (0.2-1.0) H 10/25/23 05:09 Neut # (Auto) 7.1 x10^3/uL (2.2-4.8) H 10/25/23 05:09 Lymph # (Auto) 1.8 X10^3/uL (1.3-2.9) 10/25/23 05:09 [place] # (Auto) 0.7 x10^3/uL (0.3-0.8) 10/25/23 05:09 Eos # (Auto) 0.3 x10^3/uL (0.0-0.2) H 10/25/23 05:09 Baso # (Auto) 0.1 X10^3/uL (0.0-0.1) 10/25/23 05:09 Absolute Nucleated RBC 0.1 /100WBC 10/25/23 05:09 Sodium 137 mmol/L (136-145) 10/25/23 05:09 Corrected Sodium 140 mmol/L (136-145) 10/25/23 05:09 Potassium 5.2 mmol/L (3.5-5.1) H 10/25/23 05:09 Chloride 105 mmol/L (98-107) 10/25/23 05:09 Carbon Dioxide 22.9 mmol/L (21-32) 10/25/23 05:09 BUN 20 mg/dL (7-18) H 10/25/23 05:09 Creatinine 1.07 mg/dL (0.70-1.30) 10/25/23 05:09 Est GFR (MDRD) Af Amer > 60 (>60) 10/25/23 05:09 Est GFR (MDRD) Non-Af > 60 (>60) 10/25/23 05:09 Glucose 220 mg/dL (65-99) H 10/25/23 05:09 POC Glucose (mg/dL) 279 mg/dL (65-99) H 10/25/23 16:20 Calcium 8.7 mg/dL (8.5-10.1) 10/25/23 05:09 Corrected Calcium 10.1 mg/dL (8.5-10.1) 10/25/23 05:09 Magnesium 1.8 mg/dL (2.0-2.9) L 10/25/23 05:09 Total Bilirubin 0.20 mg/dL (0.2-1.0) 10/25/23 05:09 AST 32 Units/L (15-37) 10/25/23 05:09 ALT 28 Units/L (12-78) 10/25/23 05:09 Alkaline Phosphatase 120 Units/L (46-116) H 10/25/23 05:09 Creatine Kinase 815 Units/L (39-308) H 10/24/23 05:22 Troponin I High Sens 10.2 ng/L (4.0-60.0) 10/22/23 11:45 Total Protein 6.2 g/dL (6.4-8.2) L 10/25/23 05:09 Albumin 2.2 g/dL (3.4-5.0) L 10/25/23 05:09 Globulin 4.0 g/dL (2.5-4.5) 10/25/23 05:09 Albumin/Globulin Ratio 0.6 Ratio (1.1-2.1) L 10/25/23 05:09 Lipase 10 Units/L (16-77) L 10/22/23 11:45 Specimen Type Clean catch urine 10/22/23 11:28 Urine Color Yellow (YELLOW) 10/22/23 11:28 Urine Appearance Clear (CLEAR) 10/22/23 11:28 Urine pH 5.0 (5.0 - 8.0) 10/22/23 11:28 Ur Specific [place] 1.025 (1.000-1.030) 10/22/23 11:28 Urine Protein 3+ (NEGATIVE) 10/22/23 11:28 Urine Glucose (UA) Negative (NEGATIVE) 10/22/23 11:28 Urine Ketones Negative (NEGATIVE) 10/22/23 11:28 Urine Blood 3+ (NEGATIVE) 10/22/23 11:28 Urine Nitrite Negative (NEGATIVE) 10/22/23 11:28 Urine Bilirubin Negative (NEGATIVE) 10/22/23 11:28 Urine Urobilinogen Normal (NORMAL) 10/22/23 11:28 Ur Leukocyte Esterase Negative (NEGATIVE) 10/22/23 11:28 Urine RBC 0-2 /HPF (0-3) 10/22/23 11:28 Urine WBC None seen /HPF (0-5) 10/22/23 11:28 Ur Squamous Epith Cells Rare /HPF (NEGATIVE) 10/22/23 11:28 Urine Bacteria Negative /HPF (NEGATIVE) 10/22/23 11:28 Ur Culture Indicated? No/not indicated 10/22/23 11:28 Ethyl Alcohol mg/dL < 3 mg/dL (0-19.9) 10/22/23 11:45 - Plan (1) Rhabdomyolysis Status: Acute Qualifiers: Rhabdomyolysis type: traumatic Encounter type: initial encounter Qualified Code(s): T79.6XXA - Traumatic ischemia of muscle, initial encounter Plan: NORMAL SALINE AT 150 ML/HR, OTBS ACHS, HUMULIN R SLIDING SCALE, MORPHINE SULFATE 1-2MG IV Q4H PRN, ZOFRAN 4MG IV Q8H, AND HIS HOME MEDICATIONS WERE RESUMED. (2) Lower extremity weakness Status: Acute Qualifiers: Laterality: bilateral Qualified Code(s): R29.898 - Other symptoms and signs involving the musculoskeletal system Plan: PHYSICAL THERAPY (3) Unsteady gait Status: Acute Plan: PHYSICAL THERAPY (4) Hypertension Status: Chronic Qualifiers: Hypertension type: primary hypertension Qualified Code(s): I10 - Essential (primary) hypertension Plan: CONTINUE NORVASC, COREG, ZESTRIL (5) Diabetes mellitus Status: Chronic Qualifiers: Diabetes mellitus type: type 2 Diabetes mellitus halfway insulin use: with vermin exterminator use Diabetes mellitus complication status: with hyperglycemia Qualified Code(s): E11.65 - Type 2 diabetes mellitus with hyperglycemia; Z79.4 - long term (current) use of insulin Plan: OTBS ACHS, HUMULIN R SLIDING SCALE (6) Generalized anxiety disorder Status: Chronic Plan: STABLE. CONTINUE XANAX
[2023-10-25] MEDS: SNACK - Diabetic Appropriate PO SCH (20:21)
[2023-10-25] MEDS: RESTORIL CAP 15 MG PO PRN (21:16)
[2023-10-26] MEDS: NS 1,000 ML IV 1,000 ML IV SCH ×5 (02:02→16:57)
[2023-10-26] MEDS: MORPHINE SULFATE INJ 2 MG INJ IVP PRN ×3 (03:20→18:28)
[2023-10-26 06:00] LABS: BASOPHILS # (AUTO) 0.1 X10^3/uL (0.0-0.1); BASOPHILS % (AUTO) 1.4 % (0.2-1.0); EOSINOPHILS # (AUTO) 0.2 x10^3/uL (0.0-0.2); EOSINOPHILS % (AUTO) 2.6 % (0.9-2.9); HEMATOCRIT 26.1 % (42.0-54.0); HEMOGLOBIN 8.6 g/dL (13.5-18.0); LYMPHOCYTES # (AUTO) 1.7 X10^3/uL (1.3-2.9); LYMPHOCYTES % (AUTO) 18.5 % (21.0-51.0); MEAN CORPUSCULAR HEMOGLOBIN 34.6 pg (27.0-34.0); MEAN CORPUSCULAR HGB CONC 33.1 g/dL (33.0-35.0); MEAN CORPUSCULAR VOLUME 104.6 fL (80.0-100.0); MEAN PLATELET VOLUME 7.8 fL (7.4-11.0); MONOCYTES # (AUTO) 0.9 x10^3/uL (0.3-0.8); MONOCYTES % (AUTO) 10.6 % (0.0-13.0); NEUTROPHILS % (AUTO) 66.9 % (42.0-75.0); PLATELET COUNT 406 X10^3/uL (150.0-450.0); RED CELL DISTRIBUTION WIDTH 16.4 % (11.6-16.5); WHITE BLOOD COUNT 8.9 X10^3/uL (3.6-10.0)
[2023-10-26 06:14] LABS: ALANINE AMINOTRANSFERASE 28 Units/L (12-78); ALBUMIN 2.4 g/dL (3.4-5.0); ALKALINE PHOSPHATASE 119 Units/L (46-116); ASPARTATE AMINO TRANSFERASE 24 Units/L (15-37); BLOOD UREA NITROGEN 20 mg/dL (7-18); CALCIUM 8.6 mg/dL (8.5-10.1); CARBON DIOXIDE 23.8 mmol/L (21-32); CHLORIDE 103 mmol/L (98-107); COR CA(FOR HYPOALB) 9.9 mg/dL (8.5-10.1); COR NA(FOR HYPERGLY) 137 mmol/L (136-145); CREATINE KINASE 326 Units/L (39-308); GLUCOSE 182 mg/dL (65-99); SODIUM 135 mmol/L (136-145); TOTAL PROTEIN 6.7 g/dL (6.4-8.2); eGFR NON BLACK RACES > 60 (>60)
[2023-10-26] MEDS ORDERED: CONSULT PHARMACY - POTASSIUM & MAGNESIUM XX SCH (07:00)
[2023-10-26] MEDS: ZESTRIL TAB 40 MG PO SCH (08:04)
[2023-10-26] MEDS: MAG-OX TAB PO SCH ×2 (08:04→10:20)
[2023-10-26] MEDS: NORVASC TAB 10 MG PO SCH (08:04)
[2023-10-26] MEDS: NORCO 10/325 TAB PO PRN ×2 (08:05→16:09)
[2023-10-26] MEDS: LIPITOR TAB 40 MG PO SCH (08:05)
[2023-10-26] MEDS: COREG TAB 25 MG PO SCH ×2 (08:05→20:41)
[2023-10-26] MEDS ORDERED: MILK OF MAGNESIA PO PRN (08:19)
--- NOTE | 2023-10-26 11:31 | PCM.PROG ---
Progress Note Progress Note for Day of Date of Exam: 10/26/23 Subjective Subjective: Patient seen at bedside, no acute events overnight. He states he feels better. He still has LE numbness and weakness. He has been trying to ambulate as tolerated. He is being treated for rhabdomyolysis and leg weakness. He denies GI sx. Labs/imaging reviewed -CK 326 Hgb 8.6 BUN/Cr 20/1.0 Glucose 182 Plan: PT/OT as tolerated, ambulate prn in the room with assistance. Patient would like to have a walker. Decrease NS to 75cc/hr. Continue current treatment. NPH insulin on hold due to hypoglycemia. Continue SSI. Monitor AM labs/imaging. Past Medical Family Social History Past Med/Fam/Surg Hx: No changes since H&P Allergies: Allergies No Known Drug Allergies Allergy (Verified 08/14/19 11:39) Review of Systems ROS: No change since H&P Vital Signs and I&O's Vital Signs: Vital Signs Temperature 99.6 F Temperature 98.8 F Pulse Rate [Brachial] 99 Pulse Rate [Brachial] 81 Respiratory Rate 20 Respiratory Rate 20 Respiratory Rate 20 Respiratory Rate 20 Respiratory Rate 18 Blood Pressure [Right Arm] 134/88 Blood Pressure [Right Arm] 162/79 O2 Sat by Pulse Oximetry 96 O2 Sat by Pulse Oximetry 96 Intake and Output: Intake & Output 10/23/23 10/24/23 10/25/23 10/26/23 23:59 23:59 23:59 23:59 Intake Total 4300 / 4300 2831 / 2831 3040 / 3040 1331 / 1331 Output Total 1750 / 1750 2950 / 2950 3920 / 3920 300 / 300 Balance 2550 / 2550 -119 / -119 -880 / -880 1031 / 1031 Physical Exam Oriented: Normal Eyes: Normal Ear: Normal Nose: Normal Throat: Normal Respiratory: Generalized and Diminished Cardiovascular: Normal Auscultation: Bowel Sounds: Normal Palpation: Normal Tenderness: Normal Skin: Normal Musculoskeletal: Normal Psychiatric: Normal Mood Description: Calm Affect: Normal Speech Pattern: Clear Laboratory and Diagnostics 10/26/23 05:30 10/26/23 05:30 Labs: Laboratory WBC 8.9 X10^3/uL (3.6-10.0) 10/26/23 05:30 RBC 2.50 X10^6/uL (4.7-6.0) L 10/26/23 05:30 Hgb 8.6 g/dL (13.5-18.0) L 10/26/23 05:30 Hct 26.1 % (42.0-54.0) L 10/26/23 05:30 MCV 104.6 fL (80.0-100.0) H 10/26/23 05:30 MCH 34.6 pg (27.0-34.0) H 10/26/23 05:30 MCHC 33.1 g/dL (33.0-35.0) 10/26/23 05:30 RDW 16.4 % (11.6-16.5) 10/26/23 05:30 Plt Count 406 X10^3/uL (150.0-450.0) 10/26/23 05:30 MPV 7.8 fL (7.4-11.0) 10/26/23 05:30 Neut % (Auto) 66.9 % (42.0-75.0) 10/26/23 05:30 Lymph % (Auto) 18.5 % (21.0-51.0) L 10/26/23 05:30 [place] % (Auto) 10.6 % (0.0-13.0) 10/26/23 05:30 Eos % (Auto) 2.6 % (0.9-2.9) 10/26/23 05:30 Baso % (Auto) 1.4 % (0.2-1.0) H 10/26/23 05:30 Neut # (Auto) 6.0 x10^3/uL (2.2-4.8) H 10/26/23 05:30 Lymph # (Auto) 1.7 X10^3/uL (1.3-2.9) 10/26/23 05:30 [place] # (Auto) 0.9 x10^3/uL (0.3-0.8) H 10/26/23 05:30 Eos # (Auto) 0.2 x10^3/uL (0.0-0.2) 10/26/23 05:30 Baso # (Auto) 0.1 X10^3/uL (0.0-0.1) 10/26/23 05:30 Absolute Nucleated RBC 0.1 /100WBC 10/26/23 05:30 Sodium 135 mmol/L (136-145) L 10/26/23 05:30 Corrected Sodium 137 mmol/L (136-145) 10/26/23 05:30 Potassium 5.0 mmol/L (3.5-5.1) 10/26/23 05:30 Chloride 103 mmol/L (98-107) 10/26/23 05:30 Carbon Dioxide 23.8 mmol/L (21-32) 10/26/23 05:30 BUN 20 mg/dL (7-18) H 10/26/23 05:30 Creatinine 1.00 mg/dL (0.70-1.30) 10/26/23 05:30 Est GFR (MDRD) Af Amer > 60 (>60) 10/26/23 05:30 Est GFR (MDRD) Non-Af > 60 (>60) 10/26/23 05:30 Glucose 182 mg/dL (65-99) H 10/26/23 05:30 POC Glucose (mg/dL) 256 mg/dL (65-99) H 10/26/23 10:58 Calcium 8.6 mg/dL (8.5-10.1) 10/26/23 05:30 Corrected Calcium 9.9 mg/dL (8.5-10.1) 10/26/23 05:30 Magnesium 1.8 mg/dL (2.0-2.9) L 10/26/23 05:30 Total Bilirubin 0.30 mg/dL (0.2-1.0) 10/26/23 05:30 AST 24 Units/L (15-37) 10/26/23 05:30 ALT 28 Units/L (12-78) 10/26/23 05:30 Alkaline Phosphatase 119 Units/L (46-116) H 10/26/23 05:30 Creatine Kinase 326 Units/L (39-308) H 10/26/23 05:30 Troponin I High Sens 10.2 ng/L (4.0-60.0) 10/22/23 11:45 Total Protein 6.7 g/dL (6.4-8.2) 10/26/23 05:30 Albumin 2.4 g/dL (3.4-5.0) L 10/26/23 05:30 Globulin 4.3 g/dL (2.5-4.5) 10/26/23 05:30 Albumin/Globulin Ratio 0.6 Ratio (1.1-2.1) L 10/26/23 05:30 Lipase 10 Units/L (16-77) L 10/22/23 11:45 Specimen Type Clean catch urine 10/22/23 11:28 Urine Color Yellow (YELLOW) 10/22/23 11:28 Urine Appearance Clear (CLEAR) 10/22/23 11:28 Urine pH 5.0 (5.0 - 8.0) 10/22/23 11:28 Ur Specific [place] 1.025 (1.000-1.030) 10/22/23 11:28 Urine Protein 3+ (NEGATIVE) 10/22/23 11:28 Urine Glucose (UA) Negative (NEGATIVE) 10/22/23 11:28 Urine Ketones Negative (NEGATIVE) 10/22/23 11:28 Urine Blood 3+ (NEGATIVE) 10/22/23 11:28 Urine Nitrite Negative (NEGATIVE) 10/22/23 11:28 Urine Bilirubin Negative (NEGATIVE) 10/22/23 11:28 Urine Urobilinogen Normal (NORMAL) 10/22/23 11:28 Ur Leukocyte Esterase Negative (NEGATIVE) 10/22/23 11:28 Urine RBC 0-2 /HPF (0-3) 10/22/23 11:28 Urine WBC None seen /HPF (0-5) 10/22/23 11:28 Ur Squamous Epith Cells Rare /HPF (NEGATIVE) 10/22/23 11:28 Urine Bacteria Negative /HPF (NEGATIVE) 10/22/23 11:28 Ur Culture Indicated? No/not indicated 10/22/23 11:28 Ethyl Alcohol mg/dL < 3 mg/dL (0-19.9) 10/22/23 11:45 Plan (1) Rhabdomyolysis: Status: Acute Qualifiers: Encounter type: initial encounter Rhabdomyolysis type: traumatic Qualified Code(s): T79.6XXA - Traumatic ischemia of muscle, initial encounter Plan: (2) Lower extremity weakness: Status: Acute Qualifiers: Laterality: bilateral Qualified Code(s): R29.898 - Other symptoms and signs involving the musculoskeletal system (3) Unsteady gait: Status: Acute (4) Hypertension: Status: Chronic Qualifiers: Hypertension type: primary hypertension Qualified Code(s): I10 - Essent ial (primary) hypertension (5) Diabetes mellitus: Status: Chronic Qualifiers: Diabetes mellitus complication status: with hyperglycemia Diabetes mellitus skilled nursing insulin use: with skilled nursing use Diabetes mellitus type: type 2 Qualified Code(s): E11.65 - Type 2 diabetes mellitus with hyperglycemia; Z79.4 - jail (current) use of insulin (6) Generalized anxiety disorder: Status: Chronic
[2023-10-26] MEDS: NovoLIN R (or HumuLIN R) SC PRN ×3 (11:48→20:43)
[2023-10-26] MEDS: COLACE CAP 100 MG PO SCH (20:40)
[2023-10-26] MEDS: RESTORIL CAP 15 MG PO PRN (20:40)
[2023-10-26] MEDS: SNACK - Diabetic Appropriate PO SCH (20:42)
[2023-10-27] MEDS: NS 1,000 ML IV 1,000 ML IV SCH ×3 (01:39→09:55)
[2023-10-27] MEDS ORDERED: TYLENOL 325 MG TAB PO ONE (04:03)
[2023-10-27] MEDS: MORPHINE SULFATE INJ 2 MG INJ IVP PRN ×3 (05:21→21:11)
[2023-10-27 05:36] LABS: BASOPHILS # (AUTO) 0.1 X10^3/uL (0.0-0.1); BASOPHILS % (AUTO) 1.2 % (0.2-1.0); EOSINOPHILS # (AUTO) 0.2 x10^3/uL (0.0-0.2); EOSINOPHILS % (AUTO) 1.8 % (0.9-2.9); HEMATOCRIT 26.3 % (42.0-54.0); HEMOGLOBIN 8.8 g/dL (13.5-18.0); LYMPHOCYTES % (AUTO) 9.8 % (21.0-51.0); MEAN CORPUSCULAR HEMOGLOBIN 35.3 pg (27.0-34.0); MEAN CORPUSCULAR HGB CONC 33.6 g/dL (33.0-35.0); MEAN CORPUSCULAR VOLUME 105.2 fL (80.0-100.0); MEAN PLATELET VOLUME 8.2 fL (7.4-11.0); MONOCYTES % (AUTO) 9.5 % (0.0-13.0); NEUTROPHILS # (AUTO) 8.2 x10^3/uL (2.2-4.8); NEUTROPHILS % (AUTO) 77.7 % (42.0-75.0); PLATELET COUNT 361 X10^3/uL (150.0-450.0); RED CELL DISTRIBUTION WIDTH 16.2 % (11.6-16.5); WHITE BLOOD COUNT 10.5 X10^3/uL (3.6-10.0)
[2023-10-27 05:57] LABS: ALANINE AMINOTRANSFERASE 23 Units/L (12-78); ALBUMIN 2.3 g/dL (3.4-5.0); ALKALINE PHOSPHATASE 113 Units/L (46-116); ASPARTATE AMINO TRANSFERASE 16 Units/L (15-37); BLOOD UREA NITROGEN 24 mg/dL (7-18); CALCIUM 8.6 mg/dL (8.5-10.1); CHLORIDE 103 mmol/L (98-107); COR NA(FOR HYPERGLY) 139 mmol/L (136-145); CREATINE KINASE 205 Units/L (39-308); GLUCOSE 256 mg/dL (65-99); POTASSIUM 5.3 mmol/L (3.5-5.1); SODIUM 135 mmol/L (136-145); TOTAL PROTEIN 6.5 g/dL (6.4-8.2); eGFR NON BLACK RACES > 60 (>60)
[2023-10-27] MEDS: NovoLIN R (or HumuLIN R) SC PRN ×4 (06:01→20:16)
[2023-10-27 06:02] LABS: PLATELET MORPHOLOGY COMMENT NORMAL (NORMAL); STOMATOCYTES SLIGHT
[2023-10-27] MEDS: ZESTRIL TAB 40 MG PO SCH (09:21)
[2023-10-27] MEDS: COREG TAB 25 MG PO SCH ×2 (09:22→20:14)
[2023-10-27] MEDS: LIPITOR TAB 40 MG PO SCH (09:22)
[2023-10-27] MEDS: NORVASC TAB 10 MG PO SCH (09:22)
[2023-10-27] MEDS: ZOSYN VIAL 3.375 GRAMS 3.375 G in NS 100 ML IV 100 ML IV SCH ×3 (10:44→21:29)
--- NOTE | 2023-10-27 12:43 | PCM.PROG ---
Progress Note Progress Note for Day of Date of Exam: 10/27/23 Subjective Subjective: Patient seen at bedside, patient did have a fever overnight, temp 101.2. This morning it was 100.7. He states he has some cough but hurts to cough due to rib pain. He was able to ambulate better with a walker. He states his right leg weakness has improved. He is being treated for rhabdomyolysis and leg weakness. He denies GI sx. Labs/imaging reviewed -CK 205 Hgb 8.8 BUN/Cr 20/1.2 Glucose 270 Plan: Order CXR, start empiric Zosyn, follow blood Cx. Start NPH 10 units BID, continue SSI. Continue current medications. Stop IVF. Monitor AM labs/imaging. Past Medical Family Social History Past Med/Fam/Surg Hx: No changes since H&P Allergies: Allergies No Known Drug Allergies Allergy (Verified 08/14/19 11:39) Review of Systems ROS: No change since H&P Vital Signs and I&O's Vital Signs: Vital Signs Temperature 99.8 F Temperature 100.7 F Temperature 99.9 F Temperature 100.0 F Pulse Rate [Brachial] 98 Pulse Rate [Brachial] 99 Pulse Rate [Brachial] 99 Respiratory Rate 20 Respiratory Rate 18 Respiratory Rate 18 Respiratory Rate 20 Respiratory Rate 18 Respiratory Rate 18 Respiratory Rate 18 Blood Pressure [Right Arm] 128/70 Blood Pressure [Right Arm] 177/77 O2 Sat by Pulse Oximetry 95 O2 Sat by Pulse Oximetry 92 Intake and Output: Intake & Output 10/24/23 10/25/23 10/26/23 10/27/23 23:59 23:59 23:59 23:59 Intake Total 2831 / 2831 3040 / 3040 3471 / 3471 1234 / 1234 Output Total 2950 / 2950 3920 / 3920 1600 / 1600 1750 / 1750 Balance -119 / -119 -880 / -880 1871 / 1871 -516 / -516 Physical Exam Oriented: Normal Eyes: Normal Ear: Normal Nose: Normal Throat: Normal Respiratory: Generalized and Diminished Cardiovascular: Normal Auscultation: Bowel Sounds: Normal Tenderness: Normal Skin: Normal Musculoskeletal: Normal Psychiatric: Normal Mood Description: Calm Affect: Normal Speech Pattern: Clear Laboratory and Diagnostics 10/27/23 05:00 10/27/23 05:00 Labs: Laboratory WBC 10.5 X10^3/uL (3.6-10.0) H 10/27/23 05:00 RBC 2.50 X10^6/uL (4.7-6.0) L 10/27/23 05:00 Hgb 8.8 g/dL (13.5-18.0) L 10/27/23 05:00 Hct 26.3 % (42.0-54.0) L 10/27/23 05:00 MCV 105.2 fL (80.0-100.0) H 10/27/23 05:00 MCH 35.3 pg (27.0-34.0) H 10/27/23 05:00 MCHC 33.6 g/dL (33.0-35.0) 10/27/23 05:00 RDW 16.2 % (11.6-16.5) 10/27/23 05:00 Plt Count 361 X10^3/uL (150.0-450.0) 10/27/23 05:00 Plt Count Comment Adequate (ADEQUATE) 10/27/23 05:00 MPV 8.2 fL (7.4-11.0) 10/27/23 05:00 Neut % (Auto) 77.7 % (42.0-75.0) H 10/27/23 05:00 Lymph % (Auto) 9.8 % (21.0-51.0) L 10/27/23 05:00 [place] % (Auto) 9.5 % (0.0-13.0) 10/27/23 05:00 Eos % (Auto) 1.8 % (0.9-2.9) 10/27/23 05:00 Baso % (Auto) 1.2 % (0.2-1.0) H 10/27/23 05:00 Neut # (Auto) 8.2 x10^3/uL (2.2-4.8) H 10/27/23 05:00 Lymph # (Auto) 1.0 X10^3/uL (1.3-2.9) L 10/27/23 05:00 [place] # (Auto) 1.0 x10^3/uL (0.3-0.8) H 10/27/23 05:00 Eos # (Auto) 0.2 x10^3/uL (0.0-0.2) 10/27/23 05:00 Baso # (Auto) 0.1 X10^3/uL (0.0-0.1) 10/27/23 05:00 Absolute Nucleated RBC 0.1 /100WBC 10/27/23 05:00 Plt Morphology Comment Normal (NORMAL) 10/27/23 05:00 RBC Morphology Abnormal (NORMAL) 10/27/23 05:00 Macrocytosis 1+ A 10/27/23 05:00 Stomatocytes Slight A 10/27/23 05:00 Sodium 135 mmol/L (136-145) L 10/27/23 05:00 Corrected Sodium 139 mmol/L (136-145) 10/27/23 05:00 Potassium 5.3 mmol/L (3.5-5.1) H 10/27/23 05:00 Chloride 103 mmol/L (98-107) 10/27/23 05:00 Carbon Dioxide 20.0 mmol/L (21-32) L 10/27/23 05:00 BUN 24 mg/dL (7-18) H 10/27/23 05:00 Creatinine 1.20 mg/dL (0.70-1.30) 10/27/23 05:00 Est GFR (MDRD) Af Amer > 60 (>60) 10/27/23 05:00 Est GFR (MDRD) Non-Af > 60 (>60) 10/27/23 05:00 Glucose 256 mg/dL (65-99) H 10/27/23 05:00 POC Glucose (mg/dL) 213 mg/dL (65-99) H 10/27/23 11:31 Calcium 8.6 mg/dL (8.5-10.1) 10/27/23 05:00 Corrected Calcium 10.0 mg/dL (8.5-10.1) 10/27/23 05:00 Magnesium 2.0 mg/dL (2.0-2.9) 10/27/23 05:00 Total Bilirubin 0.40 mg/dL (0.2-1.0) 10/27/23 05:00 AST 16 Units/L (15-37) 10/27/23 05:00 ALT 23 Units/L (12-78) 10/27/23 05:00 Alkaline Phosphatase 113 Units/L (46-116) 10/27/23 05:00 Creatine Kinase 205 Units/L (39-308) 10/27/23 05:00 Troponin I High Sens 10.2 ng/L (4.0-60.0) 10/22/23 11:45 Total Protein 6.5 g/dL (6.4-8.2) 10/27/23 05:00 Albumin 2.3 g/dL (3.4-5.0) L 10/27/23 05:00 Globulin 4.2 g/dL (2.5-4.5) 10/27/23 05:00 Albumin/Globulin Ratio 0.5 Ratio (1.1-2.1) L 10/27/23 05:00 Lipase 10 Units/L (16-77) L 10/22/23 11:45 Specimen Type Clean catch urine 10/22/23 11:28 Urine Color Yellow (YELLOW) 10/22/23 11:28 Urine Appearance Clear (CLEAR) 10/22/23 11:28 Urine pH 5.0 (5.0 - 8.0) 10/22/23 11:28 Ur Specific [place] 1.025 (1.000-1.030) 10/22/23 11:28 Urine Protein 3+ (NEGATIVE) 10/22/23 11:28 Urine Glucose (UA) Negative (NEGATIVE) 10/22/23 11:28 Urine Ketones Negative (NEGATIVE) 10/22/23 11:28 Urine Blood 3+ (NEGATIVE) 10/22/23 11:28 Urine Nitrite Negative (NEGATIVE) 10/22/23 11:28 Urine Bilirubin Negative (NEGATIVE) 10/22/23 11:28 Urine Urobilinogen Normal (NORMAL) 10/22/23 11:28 Ur Leukocyte Esterase Negative (NEGATIVE) 10/22/23 11:28 Urine RBC 0-2 /HPF (0-3) 10/22/23 11:28 Urine WBC None seen /HPF (0-5) 10/22/23 11:28 Ur Squamous Epith Cells Rare /HPF (NEGATIVE) 10/22/23 11:28 Urine Bacteria Negative /HPF (NEGATIVE) 10/22/23 11:28 Ur Culture Indicated? No/not indicated 10/22/23 11:28 Ethyl Alcohol mg/dL < 3 mg/dL (0-19.9) 10/22/23 11:45 Plan (1) Febrile illness: Status: Acute (2) Rhabdomyolysis: Status: Acute Qualifiers: Encounter type: initial encounter Rhabdomyolysis type: traumatic Qualified Code(s): T79.6XXA - Traumatic ischemia of muscle, initial encounter Plan: (3) Lower extremity weakness: Status: Acute Qualifiers: Laterality: bilateral Qualified Code(s): R29.898 - Other symptoms and signs involving the musculoskeletal system (4) Unsteady gait: Status: Acute Plan: PHYSICAL THERAPY (5) Hypertension: Status: Chronic Qualifiers: Hypertension type: primary hypertension Qualified Code(s): I10 - Essential (primary) hypertension Plan: CONTINUE NORVASC, COREG, ZESTRIL (6) Diabetes mellitus: Status: Chronic Qualifiers: Diabetes mellitus complication status: with hyperglycemia Diabetes mellitus long filler cigar roller machine insulin use: with long filler cigar roller machine use Diabetes mellitus type: type 2 Qualified Code(s): E11.65 - Type 2 diabetes mellitus with hyperglycemia; Z79.4 - assisted (current) use of insulin Plan: OTBS ACHS, HUMULIN R SLIDING SCALE (7) Generalized anxiety disorder: Status: Chronic Plan: STABLE. CONTINUE XANAX
--- NOTE | 2023-10-27 13:15 | RAD ---
EXAM:AP chestHISTORY:Fever rhabdomyolysisCOMPARISON:March 05, 2023, 10/22/2023FINDINGS:Heart size normal with clear lungs and pleural spaces. Apparent widening of the mediastinum is attributed to the nonstandard AP radiographic projection.IMPRESSION:No acute chest abnormality.THIS IS AN ELECTRONICALLY VERIFIED FINAL [id number]/27/2023 1:12 PM - Electronically signed by Dc Shukla MD
[2023-10-27] MEDS: ZOFRAN INJ 4 MG VIAL IVP PRN (16:40)
[2023-10-27] MEDS: NORCO 10/325 TAB PO PRN (16:51)
[2023-10-27] MEDS: RESTORIL CAP 15 MG PO PRN (20:14)
[2023-10-27] MEDS: SNACK - Diabetic Appropriate PO SCH (20:14)
[2023-10-27] MEDS: COLACE CAP 100 MG PO SCH (20:14)
[2023-10-27] MEDS ORDERED: HumuLIN 70/30 (NovoLIN 70/30) SC SCH (21:00)
[2023-10-27] MEDS ORDERED: ROBITUSSIN DM PO PRN (21:12)
[2023-10-28] MEDS: ZOSYN VIAL 3.375 GRAMS 3.375 G in NS 100 ML IV 100 ML IV SCH ×3 (05:06→21:25)
[2023-10-28] MEDS: NovoLIN R (or HumuLIN R) SC PRN ×4 (05:14→21:52)
[2023-10-28 05:22] LABS: BASOPHILS # (AUTO) 0.1 X10^3/uL (0.0-0.1); BASOPHILS % (AUTO) 1.3 % (0.2-1.0); EOSINOPHILS # (AUTO) 0.2 x10^3/uL (0.0-0.2); EOSINOPHILS % (AUTO) 1.7 % (0.9-2.9); HEMATOCRIT 23.8 % (42.0-54.0); HEMOGLOBIN 7.8 g/dL (13.5-18.0); LYMPHOCYTES # (AUTO) 1.4 X10^3/uL (1.3-2.9); LYMPHOCYTES % (AUTO) 15.4 % (21.0-51.0); MEAN CORPUSCULAR HEMOGLOBIN 34.7 pg (27.0-34.0); MEAN CORPUSCULAR VOLUME 105.4 fL (80.0-100.0); MEAN PLATELET VOLUME 7.9 fL (7.4-11.0); MONOCYTES # (AUTO) 0.8 x10^3/uL (0.3-0.8); MONOCYTES % (AUTO) 8.6 % (0.0-13.0); NEUTROPHILS # (AUTO) 6.7 x10^3/uL (2.2-4.8); PLATELET COUNT 379 X10^3/uL (150.0-450.0); RED BLOOD COUNT 2.26 X10^6/uL (4.7-6.0); RED CELL DISTRIBUTION WIDTH 16.1 % (11.6-16.5); WHITE BLOOD COUNT 9.1 X10^3/uL (3.6-10.0)
[2023-10-28 05:30] LABS: ALANINE AMINOTRANSFERASE 23 Units/L (12-78); ALBUMIN 2.2 g/dL (3.4-5.0); ALKALINE PHOSPHATASE 111 Units/L (46-116); ASPARTATE AMINO TRANSFERASE 20 Units/L (15-37); BLOOD UREA NITROGEN 27 mg/dL (7-18); CALCIUM 8.4 mg/dL (8.5-10.1); CARBON DIOXIDE 18.6 mmol/L (21-32); CHLORIDE 103 mmol/L (98-107); COR CA(FOR HYPOALB) 9.8 mg/dL (8.5-10.1); COR NA(FOR HYPERGLY) 137 mmol/L (136-145); CREATININE 1.43 mg/dL (0.70-1.30); GLUCOSE 266 mg/dL (65-99); SODIUM 133 mmol/L (136-145); TOTAL PROTEIN 6.6 g/dL (6.4-8.2); eGFR NON BLACK RACES 55 (>60)
[2023-10-28 05:31] LABS: POTASSIUM 5.9 mmol/L (3.5-5.1)
[2023-10-28 05:40] LABS: PLATELET MORPHOLOGY COMMENT NORMAL (NORMAL)
[2023-10-28 05:41] LABS: STOMATOCYTES SLIGHT
[2023-10-28] MEDS: NORCO 10/325 TAB PO PRN ×2 (06:35→20:39)
[2023-10-28] MEDS: MORPHINE SULFATE INJ 2 MG INJ IVP PRN ×2 (08:06→13:15)
[2023-10-28] MEDS: LIPITOR TAB 40 MG PO SCH (09:51)
[2023-10-28] MEDS: NORVASC TAB 10 MG PO SCH (09:51)
[2023-10-28] MEDS: ZESTRIL TAB 40 MG PO SCH (09:51)
[2023-10-28] MEDS: COREG TAB 25 MG PO SCH ×2 (09:51→21:24)
--- NOTE | 2023-10-28 12:21 | PCM.PROG ---
Progress Note - Progress Note for Day of Date of Exam: 10/25/23 - Subjective Subjective: IS CURRENTLY INPATIENT STATUS FOR TREATMENT OF RHABDOMYOLYSIS, LOWER EXTREMITY WEAKNESS, UNSTEADY GAIT, HTN, DM II, AND GENERALIZED ANXIETY DISORDER. HE HAS A PMH OF CHF, CAD, DM II, GERD, HTN, RENAL DISEASE, CARDIAC STENTS. TODAY, HE IS ALERT AND ORIENTED, LYING IN BED ON MORNING ROUNDS. HE REPORTS HAVING AN UNEVENTFUL NIGHT, HE CONTINUES WITH COMPLAINTS OF PAIN TO THE LEFT UPPER AND LOWER EXTREMITIES, LEFT SIDE RIBS, AND LOWER BACK. HE COMPLAINS OF NUMBNESS OF THE LEFT LEG. HE HAS AMBULATED IN THE ROOM WITH ASSISTANCE. ON EXAMINATION, HEART IS REGULAR IN RATE AND RHYTHM. [place] ATERAL LUNGS ARE NOTED WITH DIMINISHED LUNG SOUNDS THROUGHOUT. ABDOMEN IS ROUND, SOFT, AND NON-TENDER WITH NORMAL BOWEL SOUNDS NOTED IN ALL QUADRANTS. THERE IS TENDERNESS NOTED TO THE LUMBAR SPINE. NO UPPER OR LOWER EXTREMITY EDEMA NOTED. THERE ARE MULTIPLE BLISTERS AND ABRASIONS NOTED TO THE LEFT ARM. DRESSING APPLIED. HIS VITALS THIS MORNING ARE: 97.8-90-20-96%-197/84. LABS WERE OBTAINED. WBC 10.1, RBC 2.37, HGB 8.2, HCT 24.8, PLT COUNT 401, SODIUM 137, POTASSIUM 5.2, CHLORIDE 105, CARBON DIOXIDE 22.9, BUN 20, CREATININE 1.07, GLUCOSE 220, CALCIUM 8.7, MANGESIUM 1.8, TOTAL BILI 0.20, AST 32, ALT 28, ALK PHOS 120, TOTAL PROTEIN 6.2, ALBUMIN 2.2. HE IS CURRENTLY RECEIVING NORMAL SALINE AT 150 ML/HR, OTBS ACHS, HUMULIN R SLIDING SCALE, MORPHINE SULFATE 1-2MG IV Q4H PRN, ZOFRAN 4MG IV Q8H, AND HIS HOME MEDICATIONS WERE RESUMED. HOME MEDS INCLUDE: XANAX, NORVASC, LIPITOR, COREG, NORCO, ZESTRIL, AND RESTORIL. WE WILL OBTAIN A LUMBAR SPINE MRI WITH AND WITHOUT CONTRAST THIS MORNING. WE WILL HAVE PHYSICAL THERAPY WORK WITH HIM. OTHERWISE, WE WILL FOLLOW-UP WITH AM LABS AND CONTINUE TO MONITOR. TIME SPENT ON CLINICAL ASSESSMENT, REVIEWING LABS AND IMAGING, DECISION MAKING, AND DOCUMENTATION GREATER THAN 45 MINUTES. - Past Medical Family Social History Past Med/Fam/Surg Hx: No changes since H&P Allergies: Allergies No Known Drug Allergies Allergy (Verified 08/14/19 11:39) - Review of Systems ROS: No change since H&P - Vital Signs and I&O's Vital Signs: Vital Signs Temperature 100.1 F Pulse Rate [Brachial] 92 Respiratory Rate 18 Respiratory Rate 18 Respiratory Rate 20 Respiratory Rate 18 Respiratory Rate 18 Blood Pressure [Right Arm] 158/79 O2 Sat by Pulse Oximetry 91 Intake and Output: Intake & Output 10/26/23 10/27/23 10/28/23 10/29/23 11:59 11:59 11:59 11:59 Intake Total 3546 / 3546 3374 / 3374 1889 / 1889 Output Total 3320 / 3320 3050 / 3050 1999 / 1999 Balance 226 / 226 324 / 324 -111 / -111 - Physical Exam Oriented: Normal Eyes: Normal Ear: Normal Nose: Normal Throat: Normal Respiratory: Generalized, Diminished Cardiovascular: Normal : Normal Auscultation: Bowel Sounds: Normal Palpation: Normal Tenderness: Normal Skin: Normal Musculoskeletal: Normal Psychiatric: Normal Mood Description: Calm Affect: Normal Speech Pattern: Clear - Laboratory and Diagnostics Result Diagrams: 10/28/23 05:04 10/28/23 05:04 Labs: Laboratory WBC 9.1 X10^3/uL (3.6-10.0) 10/28/23 05:04 RBC 2.26 X10^6/uL (4.7-6.0) L 10/28/23 05:04 Hgb 7.8 g/dL (13.5-18.0) L 10/28/23 05:04 Hct 23.8 % (42.0-54.0) L 10/28/23 05:04 MCV 105.4 fL (80.0-100.0) H 10/28/23 05:04 MCH 34.7 pg (27.0-34.0) H 10/28/23 05:04 MCHC 33.0 g/dL (33.0-35.0) 10/28/23 05:04 RDW 16.1 % (11.6-16.5) 10/28/23 05:04 Plt Count 379 X10^3/uL (150.0-450.0) 10/28/23 05:04 Plt Count Comment Adequate (ADEQUATE) 10/28/23 05:04 MPV 7.9 fL (7.4-11.0) 10/28/23 05:04 Neut % (Auto) 73.0 % (42.0-75.0) 10/28/23 05:04 Lymph % (Auto) 15.4 % (21.0-51.0) L 10/28/23 05:04 [place] % (Auto) 8.6 % (0.0-13.0) 10/28/23 05:04 Eos % (Auto) 1.7 % (0.9-2.9) 10/28/23 05:04 Baso % (Auto) 1.3 % (0.2-1.0) H 10/28/23 05:04 Neut # (Auto) 6.7 x10^3/uL (2.2-4.8) H 10/28/23 05:04 Lymph # (Auto) 1.4 X10^3/uL (1.3-2.9) 10/28/23 05:04 [place] # (Auto) 0.8 x10^3/uL (0.3-0.8) 10/28/23 05:04 Eos # (Auto) 0.2 x10^3/uL (0.0-0.2) 10/28/23 05:04 Baso # (Auto) 0.1 X10^3/uL (0.0-0.1) 10/28/23 05:04 Absolute Nucleated RBC 0.0 /100WBC 10/28/23 05:04 Plt Morphology Comment Normal (NORMAL) 10/28/23 05:04 RBC Morphology Abnormal (NORMAL) 10/28/23 05:04 Macrocytosis 1+ A 10/28/23 05:04 Stomatocytes Slight A 10/28/23 05:04 Sodium 133 mmol/L (136-145) L 10/28/23 05:04 Corrected Sodium 137 mmol/L (136-145) 10/28/23 05:04 Potassium 5.9 mmol/L (3.5-5.1) H 10/28/23 05:04 Chloride 103 mmol/L (98-107) 10/28/23 05:04 Carbon Dioxide 18.6 mmol/L (21-32) L 10/28/23 05:04 BUN 27 mg/dL (7-18) H 10/28/23 05:04 Creatinine 1.43 mg/dL (0.70-1.30) H 10/28/23 05:04 Est GFR (MDRD) Af Amer > 60 (>60) 10/28/23 05:04 Est GFR (MDRD) Non-Af 55 (>60) L 10/28/23 05:04 Glucose 266 mg/dL (65-99) H 10/28/23 05:04 POC Glucose (mg/dL) 310 mg/dL (65-99) H 10/28/23 11:55 Lactic Acid 0.6 mmol/L (0.4-2.0) 10/28/23 05:04 Calcium 8.4 mg/dL (8.5-10.1) L 10/28/23 05:04 Corrected Calcium 9.8 mg/dL (8.5-10.1) 10/28/23 05:04 Magnesium 2.0 mg/dL (2.0-2.9) 10/27/23 05:00 Total Bilirubin 0.40 mg/dL (0.2-1.0) 10/28/23 05:04 AST 20 Units/L (15-37) 10/28/23 05:04 ALT 23 Units/L (12-78) 10/28/23 05:04 Alkaline Phosphatase 111 Units/L (46-116) 10/28/23 05:04 Creatine Kinase 205 Units/L (39-308) 10/27/23 05:00 Troponin I High Sens 10.2 ng/L (4.0-60.0) 10/22/23 11:45 Total Protein 6.6 g/dL (6.4-8.2) 10/28/23 05:04 Albumin 2.2 g/dL (3.4-5.0) L 10/28/23 05:04 Globulin 4.4 g/dL (2.5-4.5) 10/28/23 05:04 Albumin/Globulin Ratio 0.5 Ratio (1.1-2.1) L 10/28/23 05:04 Lipase 10 Units/L (16-77) L 10/22/23 11:45 Specimen Type Clean catch urine 10/22/23 11:28 Urine Color Yellow (YELLOW) 10/22/23 11:28 Urine Appearance Clear (CLEAR) 10/22/23 11:28 Urine pH 5.0 (5.0 - 8.0) 10/22/23 11:28 Ur Specific [place] 1.025 (1.000-1.030) 10/22/23 11:28 Urine Protein 3+ (NEGATIVE) 10/22/23 11:28 Urine Glucose (UA) Negative (NEGATIVE) 10/22/23 11:28 Urine Ketones Negative (NEGATIVE) 10/22/23 11:28 Urine Blood 3+ (NEGATIVE) 10/22/23 11:28 Urine Nitrite Negative (NEGATIVE) 10/22/23 11:28 Urine Bilirubin Negative (NEGATIVE) 10/22/23 11:28 Urine Urobilinogen Normal (NORMAL) 10/22/23 11:28 Ur Leukocyte Esterase Negative (NEGATIVE) 10/22/23 11:28 Urine RBC 0-2 /HPF (0-3) 10/22/23 11:28 Urine WBC None seen /HPF (0-5) 10/22/23 11:28 Ur Squamous Epith Cells Rare /HPF (NEGATIVE) 10/22/23 11:28 Urine Bacteria Negative /HPF (NEGATIVE) 10/22/23 11:28 Ur Culture Indicated? No/not indicated 10/22/23 11:28 Ethyl Alcohol mg/dL < 3 mg/dL (0-19.9) 10/22/23 11:45 - Plan (1) Rhabdomyolysis Status: Acute Qualifiers: Rhabdomyolysis type: traumatic Encounter type: initial encounter Qualified Code(s): T79.6XXA - Traumatic ischemia of muscle, initial encounter Plan: (2) Lower extremity weakness Status: Acute Qualifiers: Laterality: bilateral Qualified Code(s): R29.898 - Other symptoms and signs involving the musculoskeletal system Plan: PHYSICAL THERAPY (3) Unsteady gait Status: Acute Plan: PHYSICAL THERAPY (4) Hypertension Status: Chronic Qualifiers: Hypertension type: primary hypertension Qualified Code(s): I10 - Essential (primary) hypertension Plan: CONTINUE NORVASC, COREG, ZESTRIL (5) Diabetes mellitus Status: Chronic Qualifiers: Diabetes mellitus type: type 2 Diabetes mellitus marine oil terminal superintendent insulin use: with marine oil terminal superintendent use Diabetes mellitus complication status: with hyperglycemia Qualified Code(s): E11.65 - Type 2 diabetes mellitus with hyperglycemia; Z79.4 - prison (current) use of insulin Plan: OTBS ACHS, HUMULIN R SLIDING SCALE (6) Generalized anxiety disorder Status: Chronic Plan: STABLE. CONTINUE XANAX
--- NOTE | 2023-10-28 12:39 | PCM.PROG ---
Progress Note - Progress Note for Day of Date of Exam: 10/28/23 - Subjective Subjective: IS CURRENTLY INPATIENT STATUS FOR TREATMENT OF RHABDOMYOLYSIS, LOWER EXTREMITY WEAKNESS, UNSTEADY GAIT, ACUTE BRONCHITIS, HTN, DM II, AND GENERALIZED ANXIETY DISORDER. HE HAS A PMH OF CHF, CAD, DM II, GERD, HTN, RENAL DISEASE, CARDIAC STENTS. TODAY, HE IS ALERT AND ORIENTED, LYING IN BED ON MORNING ROUNDS. HE REPORTS HAVING AN UNEVENTFUL NIGHT. HE CONTINUES WITH COMPLAINTS OF WEAKNESS AND NUMBNESS OF THE LOWER EXTREMITIES, LEFT SIDE RIB PAIN, AND LOWER BACK PAIN. HE HAS NOT BEEN ABLE TO AMBULATE MUCH DUE TO WEAKNESS AND NUMBNESS OF LOWER EXTREMITIES. NURSING STAFF REPORTS THAT HE HAS BEEN FEBRILE OVER THE WEEKEND. HE HAS ALSO HAD A NON-PRODUCTIVE COUGH FOR THE PAST FEW DAYS. ON EXAMINATION, HEART IS REGULAR IN RATE AND RHYTHM. BILATERAL LUNGS ARE NOTED WITH DIMINISHED LUNG SOUNDS THROUGHOUT. ABDOMEN IS ROUND, SOFT, AND NON-TENDER WITH NORMAL BOWEL SOUNDS NOTED IN ALL QUADRANTS. THERE IS TENDERNESS NOTED TO THE LUMBAR SPINE. NO UPPER OR LOWER EXTREMITY EDEMA NOTED. THERE IS A DRESSING OVER THE LEFT ARM THAT IS DRY AND INTACT. HIS VITALS THIS MORNING ARE: 100.1-92-20-91%-158/79. LABS WERE OBTAINED. WBC 9.1, RBC 2.26, HGB 7.8, HCT 23.8, PLT COUNT 379, SODIUM 137, POTASSIUM 5.2, CHLORIDE 105, BUN 20, CREATININE 1.07, GLUCOSE 220, CALCIUM 8.7, MAGNESIUM 1.8, AST 32, ALT 28, ALK PHOS 120, TOTAL PROTEIN 6.2, ALBUMIN 2.2. A LUMBAR SPINE MRI WITH AND WITHOUT CONTRAST WAS OBTAINED ON SATURDAY AND REVEALED: A LUMBAR SPINE MRI WITH AND WITHOUT CONTRAST WAS OBTAINED AND REVEALED: T11-T12: No significant stenosis. T12-L1: No significant stenosis. L1-L2: No significant stenosis. L2-L3: No significant stenosis. L3-L4: Mild central canal stenosis with the AP dimension thecal sac of 8 mm primarily from a diffuse bulge and ligamentum flavum thickening. Facet arthropathy. [id number] bilateral neural foraminal narrowing. L4-L5: No significant stenosis. Moderate bilateral neural foraminal narrowing. Suspect interbody fusion. L5-S1: No significant stenosis. Mild bilateral neural foraminal narrowing. Suspected interbody fusion. Postsurgical changes at the L5-S1 level with interbody fusion and possibly posterior decompression. IMPRESSION: 1. Multilevel multifactorial spondylosis as above worse at L3-L4. 2. Postsurgical changes at the L5-S1 level with interbody fusion and possibly posterior decompression. 3. 25 x 10 mm, axial dimension, sagittal dimension 25 x 9 mm posterior fluid collection at the L5 level most likely a post operative fluid collection. A seroma or old hematoma is primarily consideration. The diagnosis occlusion would be an abscess. HE IS CURRENTLY RECEIVING ZOSYN 3.375G IV TID, ROBITUSSIN DM 10ML QID, OTBS ACHS, HUMULIN R SLIDING SCALE, MORPHINE SULFATE 1-2MG IV Q4H PRN, ZOFRAN 4MG IV Q8H, COLACE 200MG HS, MILK OF MAGNESIA 30ML QID PRN, AND HIS HOME MEDICATIONS WERE RESUMED. HOME MEDS INCLUDE: XANAX, NORVASC, LIPITOR, COREG, NORCO, ZESTRIL, AND RESTORIL. WE WILL HAVE PHYSICAL THERAPY WORK WITH HIM TODAY. OTHERWISE, WE WILL FOLLOW-UP WITH AM LABS AND CONTINUE TO MONITOR. TIME SPENT ON CLINICAL ASSESSMENT, REVIEWING LABS AND IMAGING, DECISION MAKING, AND DOCUMENTATION GREATER THAN 45 MINUTES. - Past Medical Family Social History Past Med/Fam/Surg Hx: No changes since H&P Allergies: Allergies No Known Drug Allergies Allergy (Verified 08/14/19 11:39) - Review of Systems ROS: No change since H&P - Vital Signs and I&O's Vital Signs: Vital Signs Temperature 98.8 F Temperature 100.1 F Pulse Rate [Brachial] 95 Pulse Rate [Brachial] 92 Respiratory Rate 20 Respiratory Rate 18 Respiratory Rate 18 Respiratory Rate 20 Respiratory Rate 18 Respiratory Rate 18 Blood Pressure [Right Arm] 135/69 Blood Pressure [Right Arm] 158/79 O2 Sat by Pulse Oximetry 92 O2 Sat by Pulse Oximetry 91 Intake and Output: Intake & Output 10/26/23 10/27/23 10/28/23 10/29/23 11:59 11:59 11:59 11:59 Intake Total 3546 / 3546 3374 / 3374 1889 / 1889 Output Total 3320 / 3320 3050 / 3050 1999 / 1999 Balance 226 / 226 324 / 324 -111 / -111 - Physical Exam Oriented: Normal Eyes: Normal Ear: Normal Nose: Normal Throat: Normal Respiratory: Generalized, Diminished Cardiovascular: Normal : Normal Auscultation: Bowel Sounds: Normal Tenderness: Normal Skin: Normal Musculoskeletal: Normal Psychiatric: Normal Mood Description: Calm Affect: Normal Speech Pattern: Clear - Laboratory and Diagnostics Result Diagrams: 10/28/23 05:04 10/28/23 05:04 Labs: Laboratory WBC 9.1 X10^3/uL (3.6-10.0) 10/28/23 05:04 RBC 2.26 X10^6/uL (4.7-6.0) L 10/28/23 05:04 Hgb 7.8 g/dL (13.5-18.0) L 10/28/23 05:04 Hct 23.8 % (42.0-54.0) L 10/28/23 05:04 MCV 105.4 fL (80.0-100.0) H 10/28/23 05:04 MCH 34.7 pg (27.0-34.0) H 10/28/23 05:04 MCHC 33.0 g/dL (33.0-35.0) 10/28/23 05:04 RDW 16.1 % (11.6-16.5) 10/28/23 05:04 Plt Count 379 X10^3/uL (150.0-450.0) 10/28/23 05:04 Plt Count Comment Adequate (ADEQUATE) 10/28/23 05:04 MPV 7.9 fL (7.4-11.0) 10/28/23 05:04 Neut % (Auto) 73.0 % (42.0-75.0) 10/28/23 05:04 Lymph % (Auto) 15.4 % (21.0-51.0) L 10/28/23 05:04 [place] % (Auto) 8.6 % (0.0-13.0) 10/28/23 05:04 Eos % (Auto) 1.7 % (0.9-2.9) 10/28/23 05:04 Baso % (Auto) 1.3 % (0.2-1.0) H 10/28/23 05:04 Neut # (Auto) 6.7 x10^3/uL (2.2-4.8) H 10/28/23 05:04 Lymph # (Auto) 1.4 X10^3/uL (1.3-2.9) 10/28/23 05:04 [place] # (Auto) 0.8 x10^3/uL (0.3-0.8) 10/28/23 05:04 Eos # (Auto) 0.2 x10^3/uL (0.0-0.2) 10/28/23 05:04 Baso # (Auto) 0.1 X10^3/uL (0.0-0.1) 10/28/23 05:04 Absolute Nucleated RBC 0.0 /100WBC 10/28/23 05:04 Plt Morphology Comment Normal (NORMAL) 10/28/23 05:04 RBC Morphology Abnormal (NORMAL) 10/28/23 05:04 Macrocytosis 1+ A 10/28/23 05:04 Stomatocytes Slight A 10/28/23 05:04 Sodium 133 mmol/L (136-145) L 10/28/23 05:04 Corrected Sodium 137 mmol/L (136-145) 10/28/23 05:04 Potassium 5.9 mmol/L (3.5-5.1) H 10/28/23 05:04 Chloride 103 mmol/L (98-107) 10/28/23 05:04 Carbon Dioxide 18.6 mmol/L (21-32) L 10/28/23 05:04 BUN 27 mg/dL (7-18) H 10/28/23 05:04 Creatinine 1.43 mg/dL (0.70-1.30) H 10/28/23 05:04 Est GFR (MDRD) Af Amer > 60 (>60) 10/28/23 05:04 Est GFR (MDRD) Non-Af 55 (>60) L 10/28/23 05:04 Glucose 266 mg/dL (65-99) H 10/28/23 05:04 POC Glucose (mg/dL) 310 mg/dL (65-99) H 10/28/23 11:55 Lactic Acid 0.6 mmol/L (0.4-2.0) 10/28/23 05:04 Calcium 8.4 mg/dL (8.5-10.1) L 10/28/23 05:04 Corrected Calcium 9.8 mg/dL (8.5-10.1) 10/28/23 05:04 Magnesium 2.0 mg/dL (2.0-2.9) 10/27/23 05:00 Total Bilirubin 0.40 mg/dL (0.2-1.0) 10/28/23 05:04 AST 20 Units/L (15-37) 10/28/23 05:04 ALT 23 Units/L (12-78) 10/28/23 05:04 Alkaline Phosphatase 111 Units/L (46-116) 10/28/23 05:04 Creatine Kinase 205 Units/L (39-308) 10/27/23 05:00 Troponin I High Sens 10.2 ng/L (4.0-60.0) 10/22/23 11:45 Total Protein 6.6 g/dL (6.4-8.2) 10/28/23 05:04 Albumin 2.2 g/dL (3.4-5.0) L 10/28/23 05:04 Globulin 4.4 g/dL (2.5-4.5) 10/28/23 05:04 Albumin/Globulin Ratio 0.5 Ratio (1.1-2.1) L 10/28/23 05:04 Lipase 10 Units/L (16-77) L 10/22/23 11:45 Specimen Type Clean catch urine 10/22/23 11:28 Urine Color Yellow (YELLOW) 10/22/23 11:28 Urine Appearance Clear (CLEAR) 10/22/23 11:28 Urine pH 5.0 (5.0 - 8.0) 10/22/23 11:28 Ur Specific [place] 1.025 (1.000-1.030) 10/22/23 11:28 Urine Protein 3+ (NEGATIVE) 10/22/23 11:28 Urine Glucose (UA) Negative (NEGATIVE) 10/22/23 11:28 Urine Ketones Negative (NEGATIVE) 10/22/23 11:28 Urine Blood 3+ (NEGATIVE) 10/22/23 11:28 Urine Nitrite Negative (NEGATIVE) 10/22/23 11:28 Urine Bilirubin Negative (NEGATIVE) 10/22/23 11:28 Urine Urobilinogen Normal (NORMAL) 10/22/23 11:28 Ur Leukocyte Esterase Negative (NEGATIVE) 10/22/23 11:28 Urine RBC 0-2 /HPF (0-3) 10/22/23 11:28 Urine WBC None seen /HPF (0-5) 10/22/23 11:28 Ur Squamous Epith Cells Rare /HPF (NEGATIVE) 10/22/23 11:28 Urine Bacteria Negative /HPF (NEGATIVE) 10/22/23 11:28 Ur Culture Indicated? No/not indicated 10/22/23 11:28 Ethyl Alcohol mg/dL < 3 mg/dL (0-19.9) 10/22/23 11:45 - Plan (1) Rhabdomyolysis Status: Acute Qualifiers: Rhabdomyolysis type: traumatic Encounter type: initial encounter Qualified Code(s): T79.6XXA - Traumatic ischemia of muscle, initial encounter Plan: ZOSYN 3.375G IV TID, ROBITUSSIN DM 10ML QID, OTBS ACHS, HUMULIN R SLIDING SCALE, MORPHINE SULFATE 1-2MG IV Q4H PRN, ZOFRAN 4MG IV Q8H, COLACE 200MG HS, MILK OF MAGNESIA 30ML QID PRN, RESUME HOME MEDS (2) Acute bronchitis Status: Acute Qualifiers: Bronchitis organism: unspecified organism Qualified Code(s): J20.9 - Acute bronchitis, unspecified (3) Lower extremity weakness Status: Acute Qualifiers: Laterality: bilateral Qualified Code(s): R29.898 - Other symptoms and signs involving the musculoskeletal system Plan: PHYSICAL THERAPY (4) Unsteady gait Status: Acute Plan: PHYSICAL THERAPY (5) Low back pain Status: Acute Qualifiers: Chronicity: acute Back pain laterality: midline Sciatica presence: unspecified whether sciatica present Qualified Code(s): M54.50 - Low back pain, unspecified (6) Hypertension Status: Chronic Qualifiers: Hypertension type: primary hypertension Qualified Code(s): I10 - Essential (primary) hypertension Plan: CONTINUE NORVASC, COREG, ZESTRIL (7) Diabetes mellitus Status: Chronic Qualifiers: Diabetes mellitus type: type 2 Diabetes mellitus snf insulin use: with truck terminal manager use Diabetes mellitus complication status: with hyperglycemia Qualified Code(s): E11.65 - Type 2 diabetes mellitus with hyperglycemia; Z79.4 - marine oil terminal superintendent (current) use of insulin Plan: OTBS ACHS, HUMULIN R SLIDING SCALE (8) Generalized anxiety disorder Status: Chronic Plan: STABLE. CONTINUE XANAX
[2023-10-28] MEDS: SNACK - Diabetic Appropriate PO SCH (20:10)
[2023-10-28] MEDS: ZOFRAN INJ 4 MG VIAL IVP PRN (20:39)
--- NOTE | 2023-10-28 20:50 | RAD ---
EXAM:CHEST, 1 VIEWHISTORY:SOB, COUGH; RHABDOMYOLYSISCOMPARISON:10/27/2023TECHNIQUE: Single frontal chest radiographFINDINGS:Cardiomediastinal silhouette within normal limits. Lungs clear. Pleural spaces are clear. Bones unremarkable.IMPRESSION:No active pulmonary disease.THIS IS AN ELECTRONICALLY VERIFIED FINAL [id number]/28/2023 8:46 PM - Electronically signed by Kevin Cook MD
[2023-10-28] MEDS: COLACE CAP 100 MG PO SCH (21:24)
[2023-10-28] MEDS: RESTORIL CAP 15 MG PO PRN (22:25)
[2023-10-29] MEDS: MORPHINE SULFATE INJ 2 MG INJ IVP PRN ×4 (00:52→17:40)
[2023-10-29] MEDS: ZOSYN VIAL 3.375 GRAMS 3.375 G in NS 100 ML IV 100 ML IV SCH ×3 (05:23→21:00)
[2023-10-29 05:37] LABS: BASOPHILS # (AUTO) 0.1 X10^3/uL (0.0-0.1); BASOPHILS % (AUTO) 0.7 % (0.2-1.0); EOSINOPHILS # (AUTO) 0.2 x10^3/uL (0.0-0.2); EOSINOPHILS % (AUTO) 2.7 % (0.9-2.9); HEMATOCRIT 23.5 % (42.0-54.0); HEMOGLOBIN 7.8 g/dL (13.5-18.0); LYMPHOCYTES # (AUTO) 1.3 X10^3/uL (1.3-2.9); LYMPHOCYTES % (AUTO) 15.1 % (21.0-51.0); MEAN CORPUSCULAR HEMOGLOBIN 34.9 pg (27.0-34.0); MEAN CORPUSCULAR HGB CONC 33.1 g/dL (33.0-35.0); MEAN CORPUSCULAR VOLUME 105.3 fL (80.0-100.0); MEAN PLATELET VOLUME 8.2 fL (7.4-11.0); MONOCYTES # (AUTO) 0.9 x10^3/uL (0.3-0.8); MONOCYTES % (AUTO) 9.7 % (0.0-13.0); NEUTROPHILS # (AUTO) 6.3 x10^3/uL (2.2-4.8); NEUTROPHILS % (AUTO) 71.8 % (42.0-75.0); PLATELET COUNT 400 X10^3/uL (150.0-450.0); RED BLOOD COUNT 2.24 X10^6/uL (4.7-6.0); WHITE BLOOD COUNT 8.8 X10^3/uL (3.6-10.0)
[2023-10-29 05:50] LABS: ALANINE AMINOTRANSFERASE 20 Units/L (12-78); ALBUMIN 2.1 g/dL (3.4-5.0); ALKALINE PHOSPHATASE 108 Units/L (46-116); ASPARTATE AMINO TRANSFERASE 15 Units/L (15-37); BLOOD UREA NITROGEN 25 mg/dL (7-18); CALCIUM 8.6 mg/dL (8.5-10.1); CARBON DIOXIDE 20.8 mmol/L (21-32); CHLORIDE 102 mmol/L (98-107); COR CA(FOR HYPOALB) 10.1 mg/dL (8.5-10.1); COR NA(FOR HYPERGLY) 138 mmol/L (136-145); CREATININE 1.34 mg/dL (0.70-1.30); GLUCOSE 311 mg/dL (65-99); POTASSIUM 5.5 mmol/L (3.5-5.1); SODIUM 133 mmol/L (136-145); TOTAL PROTEIN 6.8 g/dL (6.4-8.2); eGFR NON BLACK RACES 60 (>60)
[2023-10-29] MEDS: NovoLIN R (or HumuLIN R) SC PRN ×4 (05:54→20:59)
[2023-10-29 06:18] LABS: PLATELET MORPHOLOGY COMMENT NORMAL (NORMAL)
[2023-10-29] MEDS: COREG TAB 25 MG PO SCH ×2 (09:33→20:48)
[2023-10-29] MEDS: PROTONIX TAB 40 MG PO SCH ×2 (09:33→20:48)
[2023-10-29] MEDS: ZESTRIL TAB 40 MG PO SCH (09:33)
[2023-10-29] MEDS: NORVASC TAB 10 MG PO SCH (09:33)
[2023-10-29] MEDS: LIPITOR TAB 40 MG PO SCH (09:33)
[2023-10-29] MEDS: PEPCID TAB 20 MG PO SCH ×2 (09:34→20:48)
[2023-10-29] MEDS: TORADOL 30 MG VIAL IVP SCH ×2 (11:50→20:52)
[2023-10-29] MEDS: NORCO 10/325 TAB PO PRN (20:48)
[2023-10-29] MEDS: COLACE CAP 100 MG PO SCH (20:48)
[2023-10-29] MEDS: SNACK - Diabetic Appropriate PO SCH (20:50)
--- NOTE | 2023-10-29 21:38 | PCM.PROG ---
Progress Note - Progress Note for Day of Date of Exam: 10/29/23 - Subjective Subjective: IS CURRENTLY INPATIENT STATUS FOR TREATMENT OF RHABDOMYOLYSIS, LOWER EXTREMITY WEAKNESS, UNSTEADY GAIT, ACUTE BRONCHITIS, HTN, DM II, AND GENERALIZED ANXIETY DISORDER. HE HAS A PMH OF CHF, CAD, DM II, GERD, HTN, RENAL DISEASE, CARDIAC STENTS. TODAY, HE IS ALERT AND ORIENTED, LYING IN BED ON MORNING ROUNDS. HE REPORTS HAVING AN UNEVENTFUL NIGHT. HE CONTINUES WITH COMPLAINTS OF WEAKNESS AND NUMBNESS OF THE LOWER EXTREMITIES, LEFT SIDE RIB PAIN, AND LOWER BACK PAIN. HE HAS AMBULATED IN THE ROOM WITH THE USE OF A WALKER, BUT CONTINUES TO REPORT MODERATE PAIN WHILE AMBULATING. HE HAS BEEN AFEBRILE THROUGHOUT THE NIGHT. ON EXAMINATION, HEART IS REGULAR IN RATE AND RHYTHM. BILATERAL LUNGS ARE NOTED WITH DIMINISHED LUNG SOUNDS THROUGHOUT. ABDOMEN IS ROUND, SOFT, AND NON-TENDER WITH NORMAL BOWEL SOUNDS NOTED IN ALL QUADRANTS. THERE IS TENDERNESS NOTED TO THE LUMBAR SPINE. NO UPPER OR LOWER EXTREMITY EDEMA NOTED. THERE IS A DRESSING OVER THE LEFT ARM THAT IS DRY AND INTACT. HIS VITALS THIS MORNING ARE: 99.6-88-18-94%-138/67. LABS WERE OBTAINED. WBC 8.8, RBC 2.24, HGB 7.8, HCT 23.5, PLT COUNT 400, SODIUM 133, POTASSIUM 5.5, CARBON DIOXIDE 20.8, BUN 25, CREATININE 1.34, GLUCOSE 311, CALCIUM 8.6, AST 15, ALT 20, ALK PHOS 108, CRP 125.50, TOTAL PROTEIN 6.8, ALBUMIN 2.1. A LUMBAR SPINE MRI WITH AND WITHOUT CONTRAST WAS OBTAINED AND REVEALED: T11-T12: No significant stenosis. T12-L1: No significant stenosis. L1-L2: No significant stenosis. L2- L3: No significant stenosis. L3-L4: Mild central canal stenosis with the AP dimension thecal sac of 8 mm primarily from a diffuse bulge and ligamentum flavum thickening. Facet arthropathy. [id number] bilateral neural foraminal narrowing. L4-L5: No significant stenosis. Moderate bilateral neural foraminal narrowing. Suspect interbody fusion. L5-S1: No significant stenosis. Mild bilateral neural foraminal narrowing. Suspected interbody fusion. Postsurgical changes at the L5-S1 level with interbody fusion and possibly posterior decompression. IMPRESSION: 1. Multilevel multifactorial spondylosis as above worse at L3-L4. 2. Postsurgical changes at the L5-S1 level with interbody fusion and possibly posterior decompression. 3. 25 x 10 mm, axial dimension, sagittal dimension 25 x 9 mm posterior fluid collection at the L5 level most likely a post operative fluid collection. A seroma or old hematoma is primarily consideration. The diagnosis occlusion would be an abscess. HE IS CURRENTLY RECEIVING ZOSYN 3.375G IV TID, ROBITUSSIN DM 10ML QID, OTBS ACHS, HUMULIN R SLIDING SCALE, MORPHINE SULFATE 1-2MG IV Q4H PRN, ZOFRAN 4MG IV Q8H, COLACE 200MG HS, MILK OF MAGNESIA 30ML QID PRN, AND HIS HOME MEDICATIONS WERE RESUMED. HOME MEDS INCLUDE: XANAX, NORVASC, LIPITOR, COREG, NORCO, ZESTRIL, AND RESTORIL. WE WILL HAVE PHYSICAL THERAPY WORK WITH HIM AGAIN TODAY. OTHERWISE, WE WILL FOLLOW-UP WITH AM LABS AND CONTINUE TO MONITOR. TIME SPENT ON CLINICAL ASSESSMENT, REVIEWING LABS AND IMAGING, DECISION MAKING, AND DOCUMENTATION GREATER THAN 45 MINUTES. - Past Medical Family Social History Past Med/Fam/Surg Hx: No changes since H&P Allergies: Allergies No Known Drug Allergies Allergy (Verified 08/14/19 11:39) - Review of Systems ROS: No change since H&P - Vital Signs and I&O's Vital Signs: Vital Signs Temperature 97.4 F Pulse Rate [Brachial] 88 Respiratory Rate 17 Respiratory Rate 17 Respiratory Rate 17 Respiratory Rate 17 Respiratory Rate 20 Blood Pressure [Right Arm] 169/80 O2 Sat by Pulse Oximetry 94 Intake and Output: Intake & Output 10/27/23 10/28/23 10/29/23 10/30/23 11:59 11:59 11:59 11:59 Intake Total 3374 / 3374 1889 / 1889 1536 / 1536 1051 / 1051 Output Total 3050 / 3050 1999 / 1999 1700 / 1700 900 / 900 Balance 324 / 324 -111 / -111 -164 / -164 151 / 151 - Physical Exam Oriented: Normal Eyes: Normal Ear: Normal Nose: Normal Throat: Normal Respiratory: Generalized, Diminished Cardiovascular: Normal : Normal Auscultation: Bowel Sounds: Normal Tenderness: Normal Skin: Normal Musculoskeletal: Normal Psychiatric: Normal Mood Description: Calm Affect: Normal Speech Pattern: Clear - Laboratory and Diagnostics Result Diagrams: 10/29/23 05:03 10/29/23 05:03 Labs: 10/27/23 05:00 Blood Blood Culture - Preliminary 10/27/23 04:55 Blood Blood Culture - Preliminary Laboratory WBC 8.8 X10^3/uL (3.6-10.0) 10/29/23 05:03 RBC 2.24 X10^6/uL (4.7-6.0) L 10/29/23 05:03 Hgb 7.8 g/dL (13.5-18.0) L 10/29/23 05:03 Hct 23.5 % (42.0-54.0) L 10/29/23 05:03 MCV 105.3 fL (80.0-100.0) H 10/29/23 05:03 MCH 34.9 pg (27.0-34.0) H 10/29/23 05:03 MCHC 33.1 g/dL (33.0-35.0) 10/29/23 05:03 RDW 16.0 % (11.6-16.5) 10/29/23 05:03 Plt Count 400 X10^3/uL (150.0-450.0) 10/29/23 05:03 Plt Count Comment Adequate (ADEQUATE) 10/29/23 05:03 MPV 8.2 fL (7.4-11.0) 10/29/23 05:03 Neut % (Auto) 71.8 % (42.0-75.0) 10/29/23 05:03 Lymph % (Auto) 15.1 % (21.0-51.0) L 10/29/23 05:03 [place] % (Auto) 9.7 % (0.0-13.0) 10/29/23 05:03 Eos % (Auto) 2.7 % (0.9-2.9) 10/29/23 05:03 Baso % (Auto) 0.7 % (0.2-1.0) 10/29/23 05:03 Neut # (Auto) 6.3 x10^3/uL (2.2-4.8) H 10/29/23 05:03 Lymph # (Auto) 1.3 X10^3/uL (1.3-2.9) 10/29/23 05:03 [place] # (Auto) 0.9 x10^3/uL (0.3-0.8) H 10/29/23 05:03 Eos # (Auto) 0.2 x10^3/uL (0.0-0.2) 10/29/23 05:03 Baso # (Auto) 0.1 X10^3/uL (0.0-0.1) 10/29/23 05:03 Absolute Nucleated RBC 0.0 /100WBC 10/29/23 05:03 Plt Morphology Comment Normal (NORMAL) 10/29/23 05:03 RBC Morphology Abnormal (NORMAL) 10/29/23 05:03 Macrocytosis 1+ A 10/29/23 05:03 Stomatocytes Slight A 10/28/23 05:04 Sodium 133 mmol/L (136-145) L 10/29/23 05:03 Corrected Sodium 138 mmol/L (136-145) 10/29/23 05:03 Potassium 5.5 mmol/L (3.5-5.1) H 10/29/23 05:03 Chloride 102 mmol/L (98-107) 10/29/23 05:03 Carbon Dioxide 20.8 mmol/L (21-32) L 10/29/23 05:03 BUN 25 mg/dL (7-18) H 10/29/23 05:03 Creatinine 1.34 mg/dL (0.70-1.30) H 10/29/23 05:03 Est GFR (MDRD) Af Amer > 60 (>60) 10/29/23 05:03 Est GFR (MDRD) Non-Af 60 (>60) 10/29/23 05:03 Glucose 311 mg/dL (65-99) H 10/29/23 05:03 POC Glucose (mg/dL) 390 mg/dL (65-99) H 10/29/23 20:45 Lactic Acid 0.6 mmol/L (0.4-2.0) 10/28/23 05:04 Calcium 8.6 mg/dL (8.5-10.1) 10/29/23 05:03 Corrected Calcium 10.1 mg/dL (8.5-10.1) 10/29/23 05:03 Magnesium 2.0 mg/dL (2.0-2.9) 10/27/23 05:00 Iron 23 ug/dL (50-175) L 10/29/23 05:23 TIBC 203 ug/dL (250-450) L 10/29/23 05:23 Transferrin 156 mg/dL (202-364) L 10/29/23 05:23 Ferritin 233 ng/mL (26-388) 10/29/23 05:23 Total Bilirubin 0.30 mg/dL (0.2-1.0) 10/29/23 05:03 AST 15 Units/L (15-37) 10/29/23 05:03 ALT 20 Units/L (12-78) 10/29/23 05:03 Alkaline Phosphatase 108 Units/L (46-116) 10/29/23 05:03 Creatine Kinase 205 Units/L (39-308) 10/27/23 05:00 Troponin I High Sens 10.2 ng/L (4.0-60.0) 10/22/23 11:45 C-Reactive Protein 125.50 mg/L (0-3.0) H 10/29/23 05:03 Total Protein 6.8 g/dL (6.4-8.2) 10/29/23 05:03 Albumin 2.1 g/dL (3.4-5.0) L 10/29/23 05:03 Globulin 4.7 g/dL (2.5-4.5) H 10/29/23 05:03 Albumin/Globulin Ratio 0.4 Ratio (1.1-2.1) L 10/29/23 05:03 Lipase 10 Units/L (16-77) L 10/22/23 11:45 Vitamin B12 579 pg/mL (193-986) 10/29/23 05:23 Folate 8.7 ng/mL (>8.6) 10/29/23 05:23 Specimen Type Clean catch urine 10/22/23 11:28 Urine Color Yellow (YELLOW) 10/22/23 11:28 Urine Appearance Clear (CLEAR) 10/22/23 11:28 Urine pH 5.0 (5.0 - 8.0) 10/22/23 11:28 Ur Specific [place] 1.025 (1.000-1.030) 10/22/23 11:28 Urine Protein 3+ (NEGATIVE) 10/22/23 11:28 Urine Glucose (UA) Negative (NEGATIVE) 10/22/23 11:28 Urine Ketones Negative (NEGATIVE) 10/22/23 11:28 Urine Blood 3+ (NEGATIVE) 10/22/23 11:28 Urine Nitrite Negative (NEGATIVE) 10/22/23 11:28 Urine Bilirubin Negative (NEGATIVE) 10/22/23 11:28 Urine Urobilinogen Normal (NORMAL) 10/22/23 11:28 Ur Leukocyte Esterase Negative (NEGATIVE) 10/22/23 11:28 Urine RBC 0-2 /HPF (0-3) 10/22/23 11:28 Urine WBC None seen /HPF (0-5) 10/22/23 11:28 Ur Squamous Epith Cells Rare /HPF (NEGATIVE) 10/22/23 11:28 Urine Bacteria Negative /HPF (NEGATIVE) 10/22/23 11:28 Ur Culture Indicated? No/not indicated 10/22/23 11:28 Ethyl Alcohol mg/dL < 3 mg/dL (0-19.9) 10/22/23 11:45 - Plan (1) Rhabdomyolysis Status: Acute Qualifiers: Rhabdomyolysis type: traumatic Encounter type: initial encounter Qualified Code(s): T79.6XXA - Traumatic ischemia of muscle, initial encounter Plan: ZOSYN 3.375G IV TID, ROBITUSSIN DM 10ML QID, OTBS ACHS, HUMULIN R SLIDING SCALE, MORPHINE SULFATE 1-2MG IV Q4H PRN, ZOFRAN 4MG IV Q8H, COLACE 200MG HS, MILK OF MAGNESIA 30ML QID PRN, RESUME HOME MEDS (2) Acute bronchitis Status: Acute Qualifiers: Bronchitis organism: unspecified organism Qualified Code(s): J20.9 - Acute bronchitis, unspecified (3) Lower extremity weakness Status: Acute Qualifiers: Laterality: bilateral Qualified Code(s): R29.898 - Other symptoms and signs involving the musculoskeletal system Plan: PHYSICAL THERAPY (4) Unsteady gait Status: Acute Plan: PHYSICAL THERAPY (5) Low back pain Status: Acute Qualifiers: Chronicity: acute Back pain laterality: midline Sciatica presence: unspecified whether sciatica present Qualified Code(s): M54.50 - Low back pain, unspecified (6) Hypertension Status: Chronic Qualifiers: Hypertension type: primary hypertension Qualified Code(s): I10 - Essential (primary) hypertension Plan: CONTINUE NORVASC, COREG, ZESTRIL (7) Diabetes mellitus Status: Chronic Qualifiers: Diabetes mellitus type: type 2 Diabetes mellitus dedicated intermodal truck driver insulin use: with dedicated intermodal truck driver use Diabetes mellitus complication status: with hyperglycemia Qualified Code(s): E11.65 - Type 2 diabetes mellitus with hyperglycemia; Z79.4 - MCC (current) use of insulin Plan: OTBS ACHS, HUMULIN R SLIDING SCALE (8) Generalized anxiety disorder Status: Chronic Plan: STABLE. CONTINUE XANAX
[2023-10-30] MEDS: RESTORIL CAP 15 MG PO PRN (00:43)
[2023-10-30] MEDS: TORADOL 30 MG VIAL IVP SCH ×2 (04:11→11:19)
[2023-10-30] MEDS ORDERED: D50W ABBOJECT SYR IV ONE (04:58)
[2023-10-30] MEDS ORDERED: D50W ABBOJECT SYR ONE (05:05)
[2023-10-30] MEDS: ZOSYN VIAL 3.375 GRAMS 3.375 G in NS 100 ML IV 100 ML IV SCH (05:06)
[2023-10-30 05:42] LABS: BASOPHILS # (AUTO) 0.1 X10^3/uL (0.0-0.1); BASOPHILS % (AUTO) 1.5 % (0.2-1.0); EOSINOPHILS # (AUTO) 0.3 x10^3/uL (0.0-0.2); EOSINOPHILS % (AUTO) 3.8 % (0.9-2.9); HEMATOCRIT 24.7 % (42.0-54.0); HEMOGLOBIN 8.1 g/dL (13.5-18.0); LYMPHOCYTES # (AUTO) 1.4 X10^3/uL (1.3-2.9); LYMPHOCYTES % (AUTO) 17.5 % (21.0-51.0); MEAN CORPUSCULAR HEMOGLOBIN 34.3 pg (27.0-34.0); MEAN CORPUSCULAR VOLUME 104.1 fL (80.0-100.0); MONOCYTES # (AUTO) 0.8 x10^3/uL (0.3-0.8); MONOCYTES % (AUTO) 9.8 % (0.0-13.0); NEUTROPHILS # (AUTO) 5.6 x10^3/uL (2.2-4.8); NEUTROPHILS % (AUTO) 67.4 % (42.0-75.0); PLATELET COUNT 430 X10^3/uL (150.0-450.0); RED BLOOD COUNT 2.37 X10^6/uL (4.7-6.0); RED CELL DISTRIBUTION WIDTH 15.9 % (11.6-16.5); WHITE BLOOD COUNT 8.3 X10^3/uL (3.6-10.0)
[2023-10-30 05:47] LABS: ALANINE AMINOTRANSFERASE 21 Units/L (12-78); ALBUMIN 2.2 g/dL (3.4-5.0); ALKALINE PHOSPHATASE 104 Units/L (46-116); ASPARTATE AMINO TRANSFERASE 15 Units/L (15-37); BLOOD UREA NITROGEN 25 mg/dL (7-18); CALCIUM 8.6 mg/dL (8.5-10.1); CARBON DIOXIDE 23.7 mmol/L (21-32); CHLORIDE 105 mmol/L (98-107); COR NA(FOR HYPERGLY) 136 mmol/L (136-145); CREATININE 1.46 mg/dL (0.70-1.30); GLUCOSE 134 mg/dL (65-99); POTASSIUM 4.1 mmol/L (3.5-5.1); SODIUM 135 mmol/L (136-145); eGFR NON BLACK RACES 54 (>60)
[2023-10-30 08:20] VITALS: RESP 20
[2023-10-30] MEDS: PROTONIX TAB 40 MG PO SCH (09:17)
[2023-10-30] MEDS: LIPITOR TAB 40 MG PO SCH (09:17)
[2023-10-30] MEDS: PEPCID TAB 20 MG PO SCH (09:17)
[2023-10-30] MEDS: NORVASC TAB 10 MG PO SCH (09:17)
[2023-10-30] MEDS: COREG TAB 25 MG PO SCH (09:17)
[2023-10-30] MEDS: ZESTRIL TAB 40 MG PO SCH (09:17)
[2023-10-30] MEDS: NORCO 10/325 TAB PO PRN (09:19)
[2023-10-30] MEDS: NovoLIN R (or HumuLIN R) SC PRN (11:50)
[2023-10-30 12:17] VITALS: BP 161/76; PULSE 92; TEMP 97.7; O2SAT 95
== END 2023-10-30 13:05 | disposition home or self-care (01) ==
LOC: ER 10:09 → INTOOBSV 14:43 → MED/SURG 14:43
PROVIDERS: ADMIT Internal Medicine; ATTEND Internal Medicine

== ENCOUNTER 2024-02-01 09:18 | Inpatient (IN) ==
[2024-02-01] MEDS ORDERED: NS 1,000 ML IV 1,000 ML ONE ×4 (09:23→13:15)
[2024-02-01] MEDS: NS 1,000 ML IV 1,000 ML IV ONE ×4 (09:25→13:20)
--- NOTE | 2024-02-01 09:27 | EKG ---
Test Reason : unresponsive Blood Pressure : */* mmHG Vent. Rate : 52 BPM Atrial Rate : 52 BPM P-R Int : 176 ms QRS Dur : 110 ms QT Int : 520 ms P-R-T Axes : 69 64 59 degrees QTc Int : 483 ms Sinus bradycardia Incomplete right bundle branch block Cannot rule out Anterior infarct , age undetermined Abnormal ECG When compared with ECG of 22-OCT-2023 15:08, Vent. rate has decreased BY 49 BPM Incomplete right bundle branch block is now present Minimal criteria for Anterior infarct are now present Confirmed by Pierre Orona ([id number]) on 02/02/2024 2:37:38 PM Referred By: Confirmed By: Pierre Orona
[2024-02-01 09:28] LABS: ABG BASE EXCESS -22.9 mmol/L (-2.0-2.0); ABG HCO3 6.7 mmol/L (22-26)
[2024-02-01 09:29] LABS: ABG ALLEN TEST POS
[2024-02-01] MEDS ORDERED: SODIUM BICARBONATE 8.4% INJ ADULT ONE ×3 (09:37→11:11)
[2024-02-01] MEDS: SODIUM BICARBONATE 8.4% INJ ADULT IVP ONE ×3 (09:40→11:12)
[2024-02-01 09:45] LABS: BASOPHILS # (AUTO) 0.1 X10^3/uL (0.0-0.1); HEMOGLOBIN 7.5 g/dL (13.5-18.0); LYMPHOCYTES # (AUTO) 0.7 X10^3/uL (1.3-2.9); MONOCYTES # (AUTO) 0.7 x10^3/uL (0.3-0.8); WHITE BLOOD COUNT 12.2 X10^3/uL (3.6-10.0)
[2024-02-01 09:48] LABS: HEMATOCRIT 25.7 % (42.0-54.0); LYMPHOCYTES % (AUTO) 5.4 % (21.0-51.0); MEAN CORPUSCULAR HEMOGLOBIN 32.1 pg (27.0-34.0); MEAN CORPUSCULAR HGB CONC 29.1 g/dL (33.0-35.0); MEAN CORPUSCULAR VOLUME 110.1 fL (80.0-100.0); MEAN PLATELET VOLUME 8.1 fL (7.4-11.0); MONOCYTES % (AUTO) 5.8 % (0.0-13.0); NEUTROPHILS # (AUTO) 10.7 x10^3/uL (2.2-4.8); NEUTROPHILS % (AUTO) 87.8 % (42.0-75.0); PLATELET COUNT 456 X10^3/uL (150.0-450.0); RED BLOOD COUNT 2.33 X10^6/uL (4.7-6.0)
[2024-02-01 09:57] LABS: ALBUMIN 2.9 g/dL (3.4-5.0); CALCIUM 8.8 mg/dL (8.5-10.1); COR CA(FOR HYPOALB) 9.7 mg/dL (8.5-10.1); CREATININE 3.65 mg/dL (0.70-1.30); TOTAL PROTEIN 7.4 g/dL (6.4-8.2)
[2024-02-01 10:09] LABS: PLATELET MORPHOLOGY COMMENT NORMAL (NORMAL)
[2024-02-01 10:15] LABS: CARBON DIOXIDE 7.5 mmol/L (21-32); POTASSIUM 7.8 mmol/L (3.5-5.1)
[2024-02-01] MEDS ORDERED: NovoLIN R (or HumuLIN R) ONE ×4 (10:18→13:03)
[2024-02-01] MEDS: NovoLIN R (or HumuLIN R) IV ONE ×2 (10:36→13:03)
[2024-02-01 10:52] LABS: BILIRUBIN,URINE NEGATIVE (NEGATIVE); BLOOD/HEMOGLOBIN,URINE NEGATIVE (NEGATIVE); GLUCOSE, URINE 4+ (NEGATIVE); KETONES,URINE 2+ (NEGATIVE); LEUKOCYTE ESTERASE ,URINE NEGATIVE (NEGATIVE); NITRITES,URINE NEGATIVE (NEGATIVE); PROTEIN,URINE 3+ (NEGATIVE); UROBILINOGEN,URINE NORMAL (NORMAL)
[2024-02-01 10:56] LABS: ABG BASE EXCESS -19.6 mmol/L (-2.0-2.0)
[2024-02-01 10:57] LABS: ABG HCO3 8.7 mmol/L (22-26)
[2024-02-01 11:04] LABS: APPEARANCE,URINE CLEAR (CLEAR); BACTERIA,URINE TRACE /HPF (NEGATIVE); COLOR,URINE YELLOW (YELLOW); HYALINE CASTS, URINE FEW /LPF (NEGATIVE); RBC,URINE 0-2 /HPF (0-3); SQUAMOUS EPITHELIAL CELL,UR RARE /HPF (NEGATIVE)
[2024-02-01 12:10] LABS: CALCIUM 8.2 mg/dL (8.5-10.1); CREATININE 3.7 mg/dL (0.70-1.30); POTASSIUM 4.9 mmol/L (3.5-5.1)
[2024-02-01 12:14] LABS: CARBON DIOXIDE 11.7 mmol/L (21-32)
--- NOTE | 2024-02-01 12:44 | DR.LOC ---
HPI Time seen Time Seen by Provider: 02/01/24 12:31 Complaint Chief Complaint:: EMS called to home d/t c/o pt unresponsive; possible low BS. Family reported that pt has been in bed 3-4 days, "got drunk" several days ago, unk if beer/liquor. Family also reported that they gave pt 60u of ?insulin today prior to EMS arrival. Using abdominal muscles w/ respirations; EMS advised that pt having [place] resp on their arrival. Pt on O2 2L via [place] per EMS; BS read "high" per EMS COVID-19 Coronavirus risk:travel/contact w/high risk person: No Has patient experienced Coronavirus symptoms: No Nurses Notes Reviewed Nurses Notes Review: Yes Source History Provided: EMS Mode of Arrival Mode of Arrival: EMS Timing Onset of Chief Complaint: 02/01/24 PMH PMH Past Medical History: Yes Past Medical History: CHF, Coronary Artery Disease, Diabetes, GERD, Hypertension and Renal Disease Past Surgical History: Yes Surgical History: Angioplasty/Stents, Ortho Surgery and Other Family History History of Family Medical Conditions: Yes Family Medical History: Diabetes Mellitus, Cancer, [place], Coronary Artery Disease, Heart Failure and Hypertension Social History Type of Tobacco Use: Cigarettes Do you use any recreational Drugs:: No Travel Risk Coronavirus risk:travel/contact w/high risk person: No Has patient experienced Coronavirus symptoms: No Infectious screening Have you traveled outside the country in the last 6 months?: No Isolation: Standard PE Vital Signs Vitals: Vital Signs Pulse Rate 62 Pulse Rate 61 Pulse Rate 61 Pulse Rate 60 Pulse Rate 58 Pulse Rate 54 Pulse Rate 52 Pulse Rate 52 Pulse Rate 55 Pulse Rate 58 Pulse Rate 59 Pulse Rate 61 Pulse Rate 60 Pulse Rate 58 Pulse Rate 64 Pulse Rate 58 Pulse Rate 59 Pulse Rate 57 Pulse Rate 57 Pulse Rate 60 Pulse Rate 59 Pulse Rate 59 Pulse Rate 58 Pulse Rate 57 Pulse Rate 59 Pulse Rate 61 Pulse Rate 56 Pulse Rate 55 Pulse Rate 56 Pulse Rate 55 Pulse Rate 54 Pulse Rate 54 Pulse Rate 53 Pulse Rate 49 Pulse Rate 49 Pulse Rate 51 Pulse Rate 53 Respiratory Rate 31 Respiratory Rate 19 Respiratory Rate 19 Respiratory Rate 21 Respiratory Rate 32 Respiratory Rate 33 Respiratory Rate 30 Respiratory Rate 32 Respiratory Rate 26 Respiratory Rate 33 Respiratory Rate 30 Respiratory Rate 35 Respiratory Rate 28 Respiratory Rate 32 Respiratory Rate 39 Respiratory Rate 37 Respiratory Rate 33 Respiratory Rate 36 Respiratory Rate 37 Respiratory Rate 33 Respiratory Rate 30 Respiratory Rate 36 Respiratory Rate 19 Respiratory Rate 20 Respiratory Rate 22 Respiratory Rate 26 Respiratory Rate 33 Respiratory Rate 29 Respiratory Rate 33 Respiratory Rate 31 Respiratory Rate 32 Respiratory Rate 32 Respiratory Rate 40 Respiratory Rate 42 Respiratory Rate 25 Respiratory Rate 23 Respiratory Rate 22 Blood Pressure 103/55 Blood Pressure 71/46 Blood Pressure 86/50 Blood Pressure 88/56 Blood Pressure 96/53 Blood Pressure 84/52 Blood Pressure 96/55 Blood Pressure 94/53 Blood Pressure 86/51 Blood Pressure 98/50 Blood Pressure 100/58 Blood Pressure 84/48 Blood Pressure 84/48 Blood Pressure 88/50 Blood Pressure 88/50 Blood Pressure 129/58 O2 Sat by Pulse Oximetry 97 O2 Sat by Pulse Oximetry 97 O2 Sat by Pulse Oximetry 97 O2 Sat by Pulse Oximetry 97 O2 Sat by Pulse Oximetry 97 O2 Sat by Pulse Oximetry 97 O2 Sat by Pulse Oximetry 95 O2 Sat by Pulse Oximetry 95 O2 Sat by Pulse Oximetry 96 O2 Sat by Pulse Oximetry 91 O2 Sat by Pulse Oximetry 88 O2 Sat by Pulse Oximetry 97 O2 Sat by Pulse Oximetry 96 O2 Sat by Pulse Oximetry 97 O2 Sat by Pulse Oximetry 96 O2 Sat by Pulse Oximetry 98 O2 Sat by Pulse Oximetry 99 O2 Sat by Pulse Oximetry 100 O2 Sat by Pulse Oximetry 99 O2 Sat by Pulse Oximetry 98 O2 Sat by Pulse Oximetry 98 O2 Sat by Pulse Oximetry 100 O2 Sat by Pulse Oximetry 99 O2 Sat by Pulse Oximetry 98 O2 Sat by Pulse Oximetry 99 O2 Sat by Pulse Oximetry 95 O2 Sat by Pulse Oximetry 95 O2 Sat by Pulse Oximetry 94 ROR Labs Reviewed 02/01/24 09:30 02/01/24 15:42 Laboratory: WBC 12.2 X10^3/uL (3.6-10.0) H 02/01/24 09:30 RBC 2.33 X10^6/uL (4.7-6.0) L 02/01/24 09:30 Hgb 7.5 g/dL (13.5-18.0) L 02/01/24 09:30 Hct 25.7 % (42.0-54.0) L 02/01/24 09:30 MCV 110.1 fL (80.0-100.0) H 02/01/24 09:30 MCH 32.1 pg (27.0-34.0) 02/01/24 09:30 MCHC 29.1 g/dL (33.0-35.0) L 02/01/24 09:30 RDW 17.0 % (11.6-16.5) H 02/01/24 09:30 Plt Count 456 X10^3/uL (150.0-450.0) H 02/01/24 09:30 Plt Count Comment Increased (ADEQUATE) 02/01/24 09:30 MPV 8.1 fL (7.4-11.0) 02/01/24 09:30 Neut % (Auto) 87.8 % (42.0-75.0) H 02/01/24 09:30 Lymph % (Auto) 5.4 % (21.0-51.0) L 02/01/24 09:30 [place] % (Auto) 5.8 % (0.0-13.0) 02/01/24 09:30 Eos % (Auto) 0.0 % (0.9-2.9) L 02/01/24 09:30 Baso % (Auto) 1.0 % (0.2-1.0) 02/01/24 09:30 Neut # (Auto) 10.7 x10^3/uL (2.2-4.8) H 02/01/24 09:30 Lymph # (Auto) 0.7 X10^3/uL (1.3-2.9) L 02/01/24 09:30 [place] # (Auto) 0.7 x10^3/uL (0.3-0.8) 02/01/24 09:30 Eos # (Auto) 0.0 x10^3/uL (0.0-0.2) 02/01/24 09:30 Baso # (Auto) 0.1 X10^3/uL (0.0-0.1) 02/01/24 09:30 Absolute Nucleated RBC 0.1 /100WBC 02/01/24 09:30 Plt Morphology Comment Normal (NORMAL) 02/01/24 09:30 RBC Morphology Abnormal (NORMAL) 02/01/24 09:30 Macrocytosis 2+ A 02/01/24 09:30 Sample Site Rbr 02/01/24 10:51 ABG pH 7.100 (7.35-7.45) L* 02/01/24 10:51 ABG pCO2 28.0 mmHg (35.0-45.0) L 02/01/24 10:51 ABG pO2 97.0 mmHg (80.0-100.0) 02/01/24 10:51 ABG HCO3 8.7 mmol/L (22-26) L* 02/01/24 10:51 ABG O2 Saturation 94.0 % (90-100) 02/01/24 10:51 ABG Base Excess -19.6 mmol/L (-2.0-2.0) L 02/01/24 10:51 James Test Na 02/01/24 10:51 A-a Gradient 125.0 mmHg 02/01/24 10:51 FiO2 36.0 02/01/24 10:51 Blood Gas Comments Pt marina well. kg/eb 02/01/24 10:51 Sodium 134 mmol/L (136-145) L 02/01/24 11:51 Corrected Sodium 144 mmol/L (136-145) 02/01/24 11:51 Potassium 4.9 mmol/L (3.5-5.1) 02/01/24 11:51 Chloride 95 mmol/L (98-107) L 02/01/24 11:51 Carbon Dioxide 11.7 mmol/L (21-32) L* 02/01/24 11:51 BUN 67 mg/dL (7-18) H 02/01/24 11:51 Creatinine 3.70 mg/dL (0.70-1.30) H 02/01/24 11:51 Est GFR (MDRD) Af Amer 22 (>60) L 02/01/24 11:51 Est GFR (MDRD) Non-Af 19 (>60) L 02/01/24 11:51 Glucose 655 mg/dL (65-99) H* 02/01/24 14:18 POC Glucose (mg/dL) 552 mg/dL (65-99) H* 02/01/24 15:18 Calcium 8.2 mg/dL (8.5-10.1) L 02/01/24 11:51 Corrected Calcium 9.7 mg/dL (8.5-10.1) 02/01/24 09:30 Total Bilirubin 0.70 mg/dL (0.2-1.0) 02/01/24 09:30 AST 63 Units/L (15-37) H 02/01/24 09:30 ALT 50 Units/L (12-78) 02/01/24 09:30 Alkaline Phosphatase 230 Units/L (46-116) H 02/01/24 09:30 B-Natriuretic Peptide 2320 pg/mL (0-79) H 02/01/24 14:18 Total Protein 7.4 g/dL (6.4-8.2) 02/01/24 09:30 Albumin 2.9 g/dL (3.4-5.0) L 02/01/24 09:30 Globulin 4.5 g/dL (2.5-4.5) 02/01/24 09:30 Albumin/Globulin Ratio 0.6 Ratio (1.1-2.1) L 02/01/24 09:30 Specimen Type Catherized urine 02/01/24 10:37 Urine Color Yellow (YELLOW) 02/01/24 10:37 Urine Appearance Clear (CLEAR) 02/01/24 10:37 Urine pH 5.0 (5.0 - 8.0) 02/01/24 10:37 Ur Specific [place] 1.025 (1.000-1.030) 02/01/24 10:37 Urine Protein 3+ (NEGATIVE) 02/01/24 10:37 Urine Glucose (UA) 4+ (NEGATIVE) 02/01/24 10:37 Urine Ketones 2+ (NEGATIVE) 02/01/24 10:37 Urine Blood Negative (NEGATIVE) 02/01/24 10:37 Urine Nitrite Negative (NEGATIVE) 02/01/24 10:37 Urine Bilirubin Negative (NEGATIVE) 02/01/24 10:37 Urine Urobilinogen Normal (NORMAL) 02/01/24 10:37 Ur Leukocyte Esterase Negative (NEGATIVE) 02/01/24 10:37 Urine RBC 0-2 /HPF (0-3) 02/01/24 10:37 Urine WBC 0-2 /HPF (0-5) 02/01/24 10:37 Ur Squamous Epith Cells Rare /HPF (NEGATIVE) 02/01/24 10:37 Amorphous Sediment 1+ /HPF (NEGATIVE) 02/01/24 10:37 Urine Bacteria Trace /HPF (NEGATIVE) 02/01/24 10:37 Hyaline Casts Few /LPF (NEGATIVE) 02/01/24 10:37 Ur Culture Indicated? No/not indicated 02/01/24 10:37 Urine Opiates Screen Positive (NEG=<300) 02/01/24 10:37 Urine Methadone Screen Negative (NEG=<300) 02/01/24 10:37 Ur Barbiturates Screen Negative (NEG=<200) 02/01/24 10:37 Ur Phencyclidine Scrn Negative (NEG=<25) 02/01/24 10:37 Ur Amphetamines Screen Negative (NEG=<1000) 02/01/24 10:37 U Benzodiazepines Scrn Positive (NEG=<200) 02/01/24 10:37 Urine Cocaine Screen Negative (NEG=<300) 02/01/24 10:37 U Marijuana (THC) Screen Negative (NEG=<50) 02/01/24 10:37 Ethyl Alcohol mg/dL < 3 mg/dL (0-19.9) 02/01/24 11:51 Acetone, Semi-Quant Moderate (NEGATIVE) H 02/01/24 09:30 Opioid Opioid Risk Tool Age (Rajinder box if 16-45): No History of Preadolescent Sexual Abuse: No Total: 0 Total Score Risk Category: Low Risk Copyright: Vahid GUERRA predicting aberrant behaviors Discharge Plan Diagnosis Discharge Problem: Acute dehydration, Electrolyte imbalance, Acidosis DKA (diabetic ketoacidosis) Qualifiers: Diabetes mellitus type: type 2 Diabetes mellitus complication detail: without coma Qualified Code(s): E11.10 - Type 2 diabetes mellitus with ketoacidosis without coma Hypothermia Qualifiers: Encounter type: initial encounter Qualified Code(s): T68.XXXA - Hypothermia, initial encounter Discharge Plan Patient Disposition: ADMITTED INPATIENT Condition: Stable Orders to Discharge Patient Discharge Orders: Transfer (Routine); Ordered 02/01/24 Ordered By: GLADYS DE OLIVEIRA
[2024-02-01] MEDS ORDERED: MYXREDLIN 100 UNIT/100 ML BAG 100 UNIT/100 ML PLAST..BAG IV ONE (12:47)
[2024-02-01] MEDS: MYXREDLIN 100 UNIT/100 ML BAG 100 UNIT/100 ML PLAST..BAG IV PRN ×2 (13:02→19:00)
[2024-02-01] MEDS: THIAMINE HCL INJ IM ONE (13:35)
[2024-02-01] MEDS ORDERED: NS + KCL 20 MEQ/L 1,000 ML IV ONE (16:25)
[2024-02-01] MEDS: NS + KCL 20 MEQ/L 1,000 ML IV SCH (16:29)
[2024-02-01 16:51] LABS: ALBUMIN 2.6 g/dL (3.4-5.0); COR CA(FOR HYPOALB) 9.1 mg/dL (8.5-10.1); CREATININE 3.62 mg/dL (0.70-1.30); POTASSIUM 4.5 mmol/L (3.5-5.1); TOTAL PROTEIN 6.8 g/dL (6.4-8.2)
[2024-02-01 16:55] LABS: CARBON DIOXIDE 13.4 mmol/L (21-32)
[2024-02-01] MEDS ORDERED: MYXREDLIN 100 UNIT/100 ML BAG 100 UNIT/100 ML PLAST..BAG IV PRN (17:32)
--- NOTE | 2024-02-01 17:39 | EKG ---
Test Reason : BRADYCARDIA Blood Pressure : */* mmHG Vent. Rate : 69 BPM Atrial Rate : 69 BPM P-R Int : 130 ms QRS Dur : 92 ms QT Int : 460 ms P-R-T Axes : 69 60 92 degrees QTc Int : 492 ms Normal sinus rhythm Nonspecific T wave abnormality Prolonged QT Abnormal ECG When compared with ECG of 01-FEB-2024 09:24, (Unconfirmed) Nonspecific T wave abnormality now evident in Lateral leads Confirmed by Ollie Greene MD ([id number]) on 02/02/2024 7:36:36 AM Referred By: Confirmed By: Ollie Greene MD
--- NOTE | 2024-02-01 18:22 | RAD ---
EXAM:CHEST, 1 VIEWHISTORY:SOB;COMPARISON:October 28, 2023.TECHNIQUE:A single frontal view of the chest was obtained.FINDINGS:There are multiple EKG leads and wires seen overlying the patient. There is moderatecardiomegaly. There is pulmonary vascular congestion with pulmonary edema and small bilateral pleural effusions there is no effusion. There is no pneumothorax. The osseous structures are intact.IMPRESSION:Findings are consistent with congestive heart failure.THIS IS AN ELECTRONICALLY VERIFIED FINAL REPORT02/01/2024 6:18 PM - Electronically signed by Merced Villagomez MD
[2024-02-01 18:47] VITALS: BMI 33.3
[2024-02-01 18:55] LABS: BLOOD UREA NITROGEN 67 mg/dL (7-18); CALCIUM 8.3 mg/dL (8.5-10.1); CARBON DIOXIDE 19.8 mmol/L (21-32); CHLORIDE 101 mmol/L (98-107); COR NA(FOR HYPERGLY) 147 mmol/L (136-145); CREATININE 3.61 mg/dL (0.70-1.30); GLUCOSE 440 mg/dL (65-99); POTASSIUM 4.2 mmol/L (3.5-5.1); SODIUM 139 mmol/L (136-145); eGFR NON BLACK RACES 19 (>60)
[2024-02-01 19:00] LABS: SERUM ACETONE MODERATE (NEGATIVE)
[2024-02-01] MEDS: MAALOX or MYLANTA PO PRN (22:21)
[2024-02-02 05:25] LABS: ABG ALLEN TEST POS; ABG BASE EXCESS 0.9 mmol/L (-2.0-2.0); ABG HCO3 23.8 mmol/L (22-26)
[2024-02-02 05:27] LABS: BASOPHILS # (AUTO) 0.1 X10^3/uL (0.0-0.1); BASOPHILS % (AUTO) 0.4 % (0.2-1.0); EOSINOPHILS % (AUTO) 0.3 % (0.9-2.9); HEMATOCRIT 23.1 % (42.0-54.0); HEMOGLOBIN 7.7 g/dL (13.5-18.0); LYMPHOCYTES # (AUTO) 0.9 X10^3/uL (1.3-2.9); LYMPHOCYTES % (AUTO) 5.7 % (21.0-51.0); MEAN CORPUSCULAR HEMOGLOBIN 31.5 pg (27.0-34.0); MEAN CORPUSCULAR HGB CONC 33.4 g/dL (33.0-35.0); MEAN CORPUSCULAR VOLUME 94.3 fL (80.0-100.0); MEAN PLATELET VOLUME 7.4 fL (7.4-11.0); MONOCYTES # (AUTO) 1.2 x10^3/uL (0.3-0.8); MONOCYTES % (AUTO) 7.7 % (0.0-13.0); NEUTROPHILS # (AUTO) 13.2 x10^3/uL (2.2-4.8); NEUTROPHILS % (AUTO) 85.9 % (42.0-75.0); PLATELET COUNT 504 X10^3/uL (150.0-450.0); RED BLOOD COUNT 2.45 X10^6/uL (4.7-6.0); RED CELL DISTRIBUTION WIDTH 15.8 % (11.6-16.5); WHITE BLOOD COUNT 15.4 X10^3/uL (3.6-10.0)
[2024-02-02 05:38] LABS: ALANINE AMINOTRANSFERASE 39 Units/L (12-78); ALBUMIN 2.6 g/dL (3.4-5.0); ALKALINE PHOSPHATASE 193 Units/L (46-116); ASPARTATE AMINO TRANSFERASE 41 Units/L (15-37); BLOOD UREA NITROGEN 64 mg/dL (7-18); CALCIUM 8.3 mg/dL (8.5-10.1); CHLORIDE 107 mmol/L (98-107); COR CA(FOR HYPOALB) 9.4 mg/dL (8.5-10.1); CREATINE KINASE 192 Units/L (39-308); CREATININE 3.01 mg/dL (0.70-1.30); GLUCOSE 104 mg/dL (65-99); POTASSIUM 4.6 mmol/L (3.5-5.1); SODIUM 142 mmol/L (136-145); TOTAL PROTEIN 6.8 g/dL (6.4-8.2); eGFR NON BLACK RACES 23 (>60)
--- NOTE | 2024-02-02 07:17 | RAD ---
EXAM:AP chestHISTORY:Short of breathCOMPARISON:02/01/2024FINDINGS:Hear t size remains prominent. There is slight improvement in aeration of the lungs with decreasing pulmonary airspace involvement. The lungs are not yet clear; there is residual pulmonary edema.IMPRESSION:Interval improvement in the CHF/edema with residual findings as noted. Continued follow-up suggested.THIS IS AN ELECTRONICALLY VERIFIED FINAL REPORT02/02/2024 7:14 AM - Electronically signed by Dc Shukla MD
[2024-02-02] MEDS: NS IV ONE (07:37)
[2024-02-02] MEDS: KCL IV ONE (07:37)
[2024-02-02 09:49] LABS: GLUCOSE 655 mg/dL (65-99)
[2024-02-02] MEDS: LANTUS SC ONE (10:29)
[2024-02-02] MEDS: NORCO 10/325 TAB PO PRN (11:35)
[2024-02-02] MEDS: ZOFRAN INJ 4 MG VIAL IVP PRN (11:45)
[2024-02-02] MEDS: ZOFRAN INJ 4 MG VIAL ONE (12:11)
[2024-02-02] MEDS: NovoLIN R (or HumuLIN R) SC PRN (20:25)
[2024-02-02] MEDS: SNACK - Diabetic Appropriate PO SCH (20:25)
[2024-02-02] MEDS ORDERED: NS 500 ML IV 500 ML IV ONE (22:32)
[2024-02-02] MEDS ORDERED: ZOSYN VIAL 3.375 GRAMS IV ONE (22:33)
[2024-02-02] MEDS ORDERED: NS 100 ML IV 100 ML ONE (22:33)
[2024-02-02] MEDS: ZOSYN VIAL 3.375 GRAMS 3.375 G in NS 100 ML IV 100 ML IV SCH (22:48)
[2024-02-02] MEDS: NS 500 ML IV 500 ML IV PRN (22:48)
[2024-02-03 05:20] LABS: BASOPHILS # (AUTO) 0.1 X10^3/uL (0.0-0.1); BASOPHILS % (AUTO) 0.8 % (0.2-1.0); EOSINOPHILS # (AUTO) 0.3 x10^3/uL (0.0-0.2); LYMPHOCYTES # (AUTO) 1.5 X10^3/uL (1.3-2.9); MEAN CORPUSCULAR HEMOGLOBIN 32.1 pg (27.0-34.0); MEAN CORPUSCULAR HGB CONC 33.4 g/dL (33.0-35.0); MEAN CORPUSCULAR VOLUME 95.9 fL (80.0-100.0); MEAN PLATELET VOLUME 7.2 fL (7.4-11.0); MONOCYTES # (AUTO) 0.6 x10^3/uL (0.3-0.8); MONOCYTES % (AUTO) 5.6 % (0.0-13.0); NEUTROPHILS # (AUTO) 7.6 x10^3/uL (2.2-4.8); NEUTROPHILS % (AUTO) 75.6 % (42.0-75.0); PLATELET COUNT 490 X10^3/uL (150.0-450.0); RED CELL DISTRIBUTION WIDTH 16.2 % (11.6-16.5); WHITE BLOOD COUNT 10.1 X10^3/uL (3.6-10.0)
[2024-02-03 05:39] LABS: ALBUMIN 2.3 g/dL (3.4-5.0); CALCIUM 8.3 mg/dL (8.5-10.1); CARBON DIOXIDE 24.5 mmol/L (21-32); COR CA(FOR HYPOALB) 9.7 mg/dL (8.5-10.1); CREATININE 1.67 mg/dL (0.70-1.30); POTASSIUM 4.2 mmol/L (3.5-5.1); TOTAL PROTEIN 6.5 g/dL (6.4-8.2)
--- NOTE | 2024-02-03 08:30 | DR.H&P ---
H&P History & Physical for Day of: H&P Date: 02/01/24 Chief Complaint Chief Complaint: AMS Allergies Allergies Allergy/AdvReac Type Severity Reaction Status Date / Time No Known Drug Allergies Allergy Verified 02/01/24 14:59 History of Present Illness History of Present Illness: EMS called to home d/t c/o pt unresponsive; possible low BS. Family reported that pt has been in bed 3-4 days, "got drunk" several days ago, unknown if beer/liquor. Family also reported that they gave pt 60u of ?insulin today prior to EMS arrival. Pt has PMH of IDDM and noncompliance. Pt was in DKA on arrival and admitted to ICU for evaluation and treatment of acute illness. Past Medical History Past Medical History: CHF, Coronary Artery Disease, Diabetes, GERD, Hypertension and Renal Disease Past Surgical History Surgical History: Angioplasty/Stents, Ortho Surgery and Other Family History Family Medical History: Diabetes Mellitus, Cancer, PR, Coronary Artery Disease, Heart Failure and Hypertension Social History Does patient currently use any type of tobacco product: No Have you used tobacco products in the last 12 months: No Type of Tobacco Use: None Alcohol Use: None Drug Use: None Medications Home Medications: Home Medications Medication Instructions Recorded Confirmed Type alprazolam 1 mg tablet 1 mg PO BID PRN 02/01/24 02/02/24 History amlodipine 10 mg tablet 10 mg PO QDAY 02/01/24 02/01/24 History atorvastatin 40 mg tablet 40 mg PO QDAY 02/01/24 02/01/24 History carvedilol 25 mg tablet 25 mg PO BID 02/01/24 02/01/24 History furosemide 20 mg tablet 20 mg PO QDAY 02/01/24 02/01/24 History hydrocodone 10 mg-acetaminophen 1 tab PO BID PRN 02/01/24 02/01/24 History 325 mg tablet lisinopril 40 mg tablet 40 mg PO QDAY 02/01/24 02/01/24 History promethazine 12.5 mg tablet 12.5 mg PO Q6H PRN 02/01/24 02/02/24 History temazepam 30 mg capsule 30 mg PO QPM PRN 02/01/24 02/01/24 History Labs 02/03/24 04:24 02/03/24 04:24 Labs: Laboratory WBC 10.1 X10^3/uL (3.6-10.0) H 02/03/24 04:24 RBC 2.50 X10^6/uL (4.7-6.0) L 02/03/24 04:24 Hgb 8.0 g/dL (13.5-18.0) L 02/03/24 04:24 Hct 24.0 % (42.0-54.0) L 02/03/24 04:24 MCV 95.9 fL (80.0-100.0) 02/03/24 04:24 MCH 32.1 pg (27.0-34.0) 02/03/24 04:24 MCHC 33.4 g/dL (33.0-35.0) 02/03/24 04:24 RDW 16.2 % (11.6-16.5) 02/03/24 04:24 Plt Count 490 X10^3/uL (150.0-450.0) H 02/03/24 04:24 Plt Count Comment Increased (ADEQUATE) 02/01/24 09:30 MPV 7.2 fL (7.4-11.0) L 02/03/24 04:24 Neut % (Auto) 75.6 % (42.0-75.0) H 02/03/24 04:24 Lymph % (Auto) 15.0 % (21.0-51.0) L 02/03/24 04:24 [place] % (Auto) 5.6 % (0.0-13.0) 02/03/24 04:24 Eos % (Auto) 3.0 % (0.9-2.9) H 02/03/24 04:24 Baso % (Auto) 0.8 % (0.2-1.0) 02/03/24 04:24 Neut # (Auto) 7.6 x10^3/uL (2.2-4.8) H 02/03/24 04:24 Lymph # (Auto) 1.5 X10^3/uL (1.3-2.9) 02/03/24 04:24 [place] # (Auto) 0.6 x10^3/uL (0.3-0.8) 02/03/24 04:24 Eos # (Auto) 0.3 x10^3/uL (0.0-0.2) H 02/03/24 04:24 Baso # (Auto) 0.1 X10^3/uL (0.0-0.1) 02/03/24 04:24 Absolute Nucleated RBC 0.0 /100WBC 02/03/24 04:24 Plt Morphology Comment Normal (NORMAL) 02/01/24 09:30 RBC Morphology Abnormal (NORMAL) 02/01/24 09:30 Macrocytosis 2+ A 02/01/24 09:30 Sample Site Lr 02/02/24 05:00 ABG pH 7.480 (7.35-7.45) H 02/02/24 05:00 ABG pCO2 32.0 mmHg (35.0-45.0) L 02/02/24 05:00 ABG pO2 86.0 mmHg (80.0-100.0) 02/02/24 05:00 ABG HCO3 23.8 mmol/L (22-26) 02/02/24 05:00 ABG O2 Saturation 97.0 % (90-100) 02/02/24 05:00 ABG Base Excess 0.9 mmol/L (-2.0-2.0) 02/02/24 05:00 James Test Pos 02/02/24 05:00 A-a Gradient 131.0 mmHg 02/02/24 05:00 FiO2 36.0 02/02/24 05:00 Blood Gas Comments Jeanie well 02/02/24 05:00 Sodium 142 mmol/L (136-145) 02/03/24 04:24 Corrected Sodium 143 mmol/L (136-145) 02/03/24 04:24 Potassium 4.2 mmol/L (3.5-5.1) 02/03/24 04:24 Chloride 106 mmol/L (98-107) 02/03/24 04:24 Carbon Dioxide 24.5 mmol/L (21-32) 02/03/24 04:24 BUN 35 mg/dL (7-18) H 02/03/24 04:24 Creatinine 1.67 mg/dL (0.70-1.30) H 02/03/24 04:24 Est GFR (MDRD) Af Amer 56 (>60) L 02/03/24 04:24 Est GFR (MDRD) Non-Af 46 (>60) L 02/03/24 04:24 Glucose 134 mg/dL (65-99) H 02/03/24 04:24 POC Glucose (mg/dL) 140 mg/dL (65-99) H 02/03/24 05:10 Lactic Acid 1.4 mmol/L (0.4-2.0) 02/01/24 16:20 Calcium 8.3 mg/dL (8.5-10.1) L 02/03/24 04:24 Corrected Calcium 9.7 mg/dL (8.5-10.1) 02/03/24 04:24 Total Bilirubin 0.30 mg/dL (0.2-1.0) 02/03/24 04:24 AST 36 Units/L (15-37) 02/03/24 04:24 ALT 41 Units/L (12-78) 02/03/24 04:24 Alkaline Phosphatase 179 Units/L (46-116) H 02/03/24 04:24 Creatine Kinase 192 Units/L (39-308) 02/02/24 04:30 Troponin I High Sens 8.2 ng/L (4.0-60.0) 02/01/24 21:35 B-Natriuretic Peptide 2320 pg/mL (0-79) H 02/01/24 14:18 Total Protein 6.5 g/dL (6.4-8.2) 02/03/24 04:24 Albumin 2.3 g/dL (3.4-5.0) L 02/03/24 04:24 Globulin 4.2 g/dL (2.5-4.5) 02/03/24 04:24 Albumin/Globulin Ratio 0.5 Ratio (1.1-2.1) L 02/03/24 04:24 Specimen Type Catherized urine 02/01/24 10:37 Urine Color Yellow (YELLOW) 02/01/24 10:37 Urine Appearance Clear (CLEAR) 02/01/24 10:37 Urine pH 5.0 (5.0 - 8.0) 02/01/24 10:37 Ur Specific [place] 1.025 (1.000-1.030) 02/01/24 10:37 Urine Protein 3+ (NEGATIVE) 02/01/24 10:37 Urine Glucose (UA) 4+ (NEGATIVE) 02/01/24 10:37 Urine Ketones 2+ (NEGATIVE) 02/01/24 10:37 Urine Blood Negative (NEGATIVE) 02/01/24 10:37 Urine Nitrite Negative (NEGATIVE) 02/01/24 10:37 Urine Bilirubin Negative (NEGATIVE) 02/01/24 10:37 Urine Urobilinogen Normal (NORMAL) 02/01/24 10:37 Ur Leukocyte Esterase Negative (NEGATIVE) 02/01/24 10:37 Urine RBC 0-2 /HPF (0-3) 02/01/24 10:37 Urine WBC 0-2 /HPF (0-5) 02/01/24 10:37 Ur Squamous Epith Cells Rare /HPF (NEGATIVE) 02/01/24 10:37 Amorphous Sediment 1+ /HPF (NEGATIVE) 02/01/24 10:37 Urine Bacteria Trace /HPF (NEGATIVE) 02/01/24 10:37 Hyaline Casts Few /LPF (NEGATIVE) 02/01/24 10:37 Ur Culture Indicated? No/not indicated 02/01/24 10:37 Urine Opiates Screen Positive (NEG=<300) 02/01/24 10:37 Urine Methadone Screen Negative (NEG=<300) 02/01/24 10:37 Acetaminophen 0.0 ug/mL (10-30) L 02/01/24 09:30 Ur Barbiturates Screen Negative (NEG=<200) 02/01/24 10:37 Ur Phencyclidine Scrn Negative (NEG=<25) 02/01/24 10:37 Ur Amphetamines Screen Negative (NEG=<1000) 02/01/24 10:37 U Benzodiazepines Scrn Positive (NEG=<200) 02/01/24 10:37 Urine Cocaine Screen Negative (NEG=<300) 02/01/24 10:37 U Marijuana (THC) Screen Negative (NEG=<50) 02/01/24 10:37 Ethyl Alcohol mg/dL < 3 mg/dL (0-19.9) 02/01/24 11:51 Acetone, Semi-Quant Negative (NEGATIVE) 02/02/24 04:30 Review of Systems Constitutional: Weakness Eyes: No Symptoms Reported ENT: No Symptoms Reported Respiratory: Shortness of Breath Cardiovascular: No Symptoms Reported Gastrointestinal: Nausea Genitourinary: Frequency Musculoskeletal: Back Pain Skin: No Symptoms Reported Neurological: Weakness and Other (lethargic) Physical Exam Vital Signs: Vital Signs Temperature 98.2 F Pulse Rate 115 Pulse Rate 76 Pulse Rate 78 Pulse Rate 79 Pulse Rate 84 Pulse Rate 83 Pulse Rate 80 Pulse Rate 94 Pulse Rate 84 Pulse Rate 84 Pulse Rate 78 Pulse Rate 78 Pulse Rate 77 Pulse Rate 82 Pulse Rate 88 Pulse Rate 93 Pulse Rate 79 Pulse Rate 73 Pulse Rate 72 Pulse Rate 82 Pulse Rate 71 Pulse Rate 72 Pulse Rate 72 Pulse Rate 72 Pulse Rate 84 Pulse Rate 72 Pulse Rate 74 Pulse Rate 74 Pulse Rate 74 Pulse Rate 74 Pulse Rate 74 Pulse Rate 75 Pulse Rate 82 Pulse Rate 75 Pulse Rate 75 Respiratory Rate 29 Respiratory Rate 18 Respiratory Rate 17 Respiratory Rate 18 Respiratory Rate 23 Respiratory Rate 19 Respiratory Rate 16 Respiratory Rate 24 Respiratory Rate 23 Respiratory Rate 17 Respiratory Rate 14 Respiratory Rate 7 Respiratory Rate 22 Respiratory Rate 14 Respiratory Rate 19 Respiratory Rate 23 Respiratory Rate 15 Respiratory Rate 20 Respiratory Rate 24 Respiratory Rate 20 Respiratory Rate 30 Respiratory Rate 16 Respiratory Rate 18 Respiratory Rate 16 Respiratory Rate 26 Respiratory Rate 15 Respiratory Rate 15 Respiratory Rate 16 Respiratory Rate 15 Respiratory Rate 15 Respiratory Rate 16 Respiratory Rate 15 Respiratory Rate 24 Respiratory Rate 17 Respiratory Rate 14 Blood Pressure 146/73 Blood Pressure 128/63 Blood Pressure 153/75 Blood Pressure 153/75 Blood Pressure 170/77 Blood Pressure 170/77 Blood Pressure 153/75 Blood Pressure 156/74 Blood Pressure 128/63 Blood Pressure 128/63 Blood Pressure 128/63 Blood Pressure 171/83 Blood Pressure 192/88 Blood Pressure 133/60 Blood Pressure 133/60 Blood Pressure 116/55 Blood Pressure 107/53 Blood Pressure 153/77 Blood Pressure 115/56 Blood Pressure 112/57 Blood Pressure 112/57 Blood Pressure 112/57 Blood Pressure 112/57 Blood Pressure 156/73 Blood Pressure 140/69 Blood Pressure 140/69 Blood Pressure 140/69 O2 Sat by Pulse Oximetry 93 O2 Sat by Pulse Oximetry 92 O2 Sat by Pulse Oximetry 92 O2 Sat by Pulse Oximetry 91 O2 Sat by Pulse Oximetry 91 O2 Sat by Pulse Oximetry 90 O2 Sat by Pulse Oximetry 94 O2 Sat by Pulse Oximetry 90 O2 Sat by Pulse Oximetry 92 O2 Sat by Pulse Oximetry 91 O2 Sat by Pulse Oximetry 91 O2 Sat by Pulse Oximetry 89 O2 Sat by Pulse Oximetry 94 O2 Sat by Pulse Oximetry 87 O2 Sat by Pulse Oximetry 91 O2 Sat by Pulse Oximetry 90 O2 Sat by Pulse Oximetry 94 O2 Sat by Pulse Oximetry 94 O2 Sat by Pulse Oximetry 93 O2 Sat by Pulse Oximetry 94 O2 Sat by Pulse Oximetry 93 O2 Sat by Pulse Oximetry 93 O2 Sat by Pulse Oximetry 89 O2 Sat by Pulse Oximetry 91 O2 Sat by Pulse Oximetry 94 O2 Sat by Pulse Oximetry 94 O2 Sat by Pulse Oximetry 96 O2 Sat by Pulse Oximetry 99 O2 Sat by Pulse Oximetry 91 O2 Sat by Pulse Oximetry 91 O2 Sat by Pulse Oximetry 94 O2 Sat by Pulse Oximetry 93 O2 Sat by Pulse Oximetry 92 O2 Sat by Pulse Oximetry 96 O2 Sat by Pulse Oximetry 95 Oriented: Person Eyes: negative Discharge or Pain Ear: Normal Nose: Normal Throat: Dry Respiratory: Diminished Throughout Cardiovascular: Tachycardia Auscultation: Bowel Sounds: Decreased Palpation: negative Spleen Enlarged or Liver Enlarged Tenderness: Normal Skin: Decreased Turgur Musculoskeletal: Back:Lumbar Speech Pattern: Inappropriate and Delayed Assessment/Plan (1) DKA (diabetic ketoacidosis): Qualifiers: Diabetes mellitus complication detail: without coma Diabetes mellitus type: type 2 Qualified Code(s): E11.10 - Type 2 diabetes mellitus with ketoacidosis without coma Narrative Support Text: ADMIT ICU, INSULIN DRIP PER PROTOCOL CARDIAC MONITORING, STRICT I&OS IV HYDRATION BP CONTROL, VERIFY HOME MEDICATION ABG ON ADMISSION CXR ON ADMISSION., NPO Status: Acute (2) Acute dehydration: Status: Acute (3) Electrolyte imbalance: Status: Acute (4) Generalized anxiety disorder: Status: Chronic (5) Hypertension: Qualifiers: Hypertension type: primary hypertension Qualified Code(s): I10 - Essential (primary) hypertension Status: Chronic (6) Acute renal failure: Qualifiers: Acute renal failure type: unspecified Qualified Code(s): N17.9 - Acute kidney failure, unspecified Status: Acute
[2024-02-03] MEDS: LANTUS SC SCH (08:43)
--- NOTE | 2024-02-03 08:44 | RAD ---
EXAM:Chest PA and lateral viewsHISTORY:Short of breathCOMPARISON:02/02/2024FINDINGS:No change in heart size or contour. Persistent vascular congestion and edema pattern with little change or new abnormality noted.IMPRESSION:Stable chest. See above.THIS IS AN ELECTRONICALLY VERIFIED FINAL REPORT02/03/2024 8:31 AM - Electronically signed by Dc Shukla MD
[2024-02-03] MEDS ORDERED: ALPRAZOLAM ODT PO PRN (09:15)
[2024-02-03] MEDS: LASIX IVP SCH (09:27)
[2024-02-03] MEDS: LIPITOR TAB 40 MG PO SCH (09:28)
[2024-02-03] MEDS: COREG TAB 25 MG PO SCH (09:28)
[2024-02-03] MEDS: PROTONIX INJ 40 MG VIAL IVP SCH (10:00)
[2024-02-03] MEDS: ALPRAZOLAM ODT PO PRN (21:16)
[2024-02-03] MEDS: COLACE CAP 100 MG PO SCH (21:16)
[2024-02-04 05:43] LABS: BASOPHILS # (AUTO) 0.1 X10^3/uL (0.0-0.1); BASOPHILS % (AUTO) 1.2 % (0.2-1.0); EOSINOPHILS # (AUTO) 0.4 x10^3/uL (0.0-0.2); EOSINOPHILS % (AUTO) 5.2 % (0.9-2.9); HEMATOCRIT 26.2 % (42.0-54.0); HEMOGLOBIN 8.7 g/dL (13.5-18.0); LYMPHOCYTES # (AUTO) 1.5 X10^3/uL (1.3-2.9); LYMPHOCYTES % (AUTO) 21.2 % (21.0-51.0); MEAN CORPUSCULAR HEMOGLOBIN 31.9 pg (27.0-34.0); MEAN CORPUSCULAR HGB CONC 33.2 g/dL (33.0-35.0); MEAN PLATELET VOLUME 7.3 fL (7.4-11.0); MONOCYTES # (AUTO) 0.5 x10^3/uL (0.3-0.8); MONOCYTES % (AUTO) 6.7 % (0.0-13.0); NEUTROPHILS # (AUTO) 4.6 x10^3/uL (2.2-4.8); NEUTROPHILS % (AUTO) 65.7 % (42.0-75.0); PLATELET COUNT 479 X10^3/uL (150.0-450.0); RED BLOOD COUNT 2.73 X10^6/uL (4.7-6.0); RED CELL DISTRIBUTION WIDTH 16.5 % (11.6-16.5)
[2024-02-04 05:57] LABS: ALANINE AMINOTRANSFERASE 38 Units/L (12-78); ALBUMIN 2.5 g/dL (3.4-5.0); ALKALINE PHOSPHATASE 176 Units/L (46-116); ASPARTATE AMINO TRANSFERASE 23 Units/L (15-37); BLOOD UREA NITROGEN 22 mg/dL (7-18); CALCIUM 9.1 mg/dL (8.5-10.1); CARBON DIOXIDE 29.3 mmol/L (21-32); CHLORIDE 104 mmol/L (98-107); COR CA(FOR HYPOALB) 10.3 mg/dL (8.5-10.1); COR NA(FOR HYPERGLY) 141 mmol/L (136-145); CREATININE 1.31 mg/dL (0.70-1.30); GLUCOSE 138 mg/dL (65-99); POTASSIUM 4.4 mmol/L (3.5-5.1); SODIUM 140 mmol/L (136-145); TOTAL PROTEIN 6.9 g/dL (6.4-8.2); eGFR NON BLACK RACES > 60 (>60)
[2024-02-04] MEDS: ZESTRIL TAB 40 MG PO SCH (09:19)
[2024-02-04 10:46] LABS: ABG BASE EXCESS 5.1 mmol/L (-2.0-2.0); ABG HCO3 29.9 mmol/L (22-26)
[2024-02-04] MEDS: D50W ABBOJECT SYR IV ONE ×2 (13:05→16:45)
[2024-02-04] MEDS ORDERED: D50W ABBOJECT SYR ONE ×2 (13:06→16:31)
[2024-02-05 05:31] LABS: BASOPHILS # (AUTO) 0.1 X10^3/uL (0.0-0.1); BASOPHILS % (AUTO) 0.9 % (0.2-1.0); EOSINOPHILS # (AUTO) 0.4 x10^3/uL (0.0-0.2); EOSINOPHILS % (AUTO) 6.6 % (0.9-2.9); HEMATOCRIT 23.4 % (42.0-54.0); HEMOGLOBIN 7.8 g/dL (13.5-18.0); LYMPHOCYTES # (AUTO) 1.2 X10^3/uL (1.3-2.9); LYMPHOCYTES % (AUTO) 18.3 % (21.0-51.0); MEAN CORPUSCULAR HEMOGLOBIN 32.1 pg (27.0-34.0); MEAN CORPUSCULAR HGB CONC 33.4 g/dL (33.0-35.0); MEAN CORPUSCULAR VOLUME 96.3 fL (80.0-100.0); MEAN PLATELET VOLUME 7.4 fL (7.4-11.0); MONOCYTES # (AUTO) 0.5 x10^3/uL (0.3-0.8); MONOCYTES % (AUTO) 8.2 % (0.0-13.0); NEUTROPHILS # (AUTO) 4.3 x10^3/uL (2.2-4.8); PLATELET COUNT 417 X10^3/uL (150.0-450.0); RED BLOOD COUNT 2.43 X10^6/uL (4.7-6.0); RED CELL DISTRIBUTION WIDTH 16.3 % (11.6-16.5); WHITE BLOOD COUNT 6.5 X10^3/uL (3.6-10.0)
[2024-02-05 05:53] LABS: ALANINE AMINOTRANSFERASE 28 Units/L (12-78); ALBUMIN 2.1 g/dL (3.4-5.0); ALKALINE PHOSPHATASE 141 Units/L (46-116); ASPARTATE AMINO TRANSFERASE 16 Units/L (15-37); BLOOD UREA NITROGEN 17 mg/dL (7-18); CALCIUM 8.7 mg/dL (8.5-10.1); CARBON DIOXIDE 28.2 mmol/L (21-32); CHLORIDE 106 mmol/L (98-107); COR CA(FOR HYPOALB) 10.2 mg/dL (8.5-10.1); COR NA(FOR HYPERGLY) 142 mmol/L (136-145); CREATININE 1.23 mg/dL (0.70-1.30); GLUCOSE 124 mg/dL (65-99); POTASSIUM 4.4 mmol/L (3.5-5.1); SODIUM 141 mmol/L (136-145); TOTAL PROTEIN 6.2 g/dL (6.4-8.2); eGFR NON BLACK RACES > 60 (>60)
--- NOTE | 2024-02-05 06:14 | RAD ---
EXAM: CHEST, 1 VIEW HISTORY: CHF/EDEMA; CAD, HTN, DM, RENAL DISEASE, GERD, CHF SX: ANGIO/STENTS, ORTHO COMPARISON: 02/03/2024 FINDINGS: The cardiomediastinal silhouette is stable. Similar congestion and edema. No definite consolidation. No pneumothorax or effusion. No acute osseous abnormality. IMPRESSION: Similar congestion and edema THIS IS AN ELECTRONICALLY VERIFIED FINAL REPORT 02/05/2024 6:11 AM - Electronically signed by Willian Lemons MD
[2024-02-05 08:10] VITALS: TEMP 97.8
[2024-02-05 08:40] LABS: RETICULOCYTE % 1.32 % (0.8-2.2)
[2024-02-05] MEDS: K-DUR TAB 20 MEQ PO SCH (08:40)
[2024-02-05] MEDS: MILK OF MAGNESIA PO PRN (08:40)
[2024-02-05] MEDS: LASIX IVP ONE (08:40)
[2024-02-05 09:41] VITALS: RESP 19
[2024-02-05 10:33] VITALS: BP 179/82; PULSE 94; O2SAT 91
--- NOTE | 2024-02-06 13:30 | PCM.DCPLAN ---
DISCHARGE SUMMARY Admission Date Date of Admission: 02/01/24 Discharge Date Discharge Date: 02/05/24 Admission Diagnoses (1) DKA (diabetic ketoacidosis): Status: Acute (2) Acute dehydration: Status: Acute (3) Electrolyte imbalance: Status: Acute (4) Generalized anxiety disorder: Status: Chronic (5) Hypertension: Status: Chronic (6) Acute renal failure: Status: Acute Discharge Diagnoses Discharge Diagnosis: Resolved DKA, dehydration, electrolyte imbalance, acute renal failure- same as admission Discharge Medications Discharge Medications: Home Medication List alprazolam 1 mg tablet 1 mg PO BID PRN 02/01/24 [History] amlodipine 10 mg tablet 10 mg PO QDAY 02/01/24 [History] atorvastatin 40 mg tablet 40 mg PO QDAY 02/01/24 [History] carvedilol 25 mg tablet 25 mg PO BID 02/01/24 [History] furosemide 20 mg tablet 20 mg PO QDAY 02/01/24 [History] hydrocodone 10 mg-acetaminophen 325 mg tablet 1 tab PO BID PRN 02/01/24 [History] lisinopril 40 mg tablet 40 mg PO QDAY 02/01/24 [History] promethazine 12.5 mg tablet 12.5 mg PO Q6H PRN 02/01/24 [History] temazepam 30 mg capsule 30 mg PO QPM PRN 02/01/24 [History] Prescriptions: Hospital Course Vital Signs: Vital Signs Temperature 97.8 F Pulse Rate 94 Pulse Rate 80 Pulse Rate 85 Pulse Rate 88 Pulse Rate 89 Pulse Rate 91 Pulse Rate 77 Pulse Rate 84 Pulse Rate 82 Pulse Rate 88 Pulse Rate 81 Pulse Rate 77 Respiratory Rate 19 Respiratory Rate 32 Respiratory Rate 19 Respiratory Rate 19 Respiratory Rate 15 Respiratory Rate 18 Respiratory Rate 19 Respiratory Rate 20 Respiratory Rate 20 Respiratory Rate 19 Respiratory Rate 18 Respiratory Rate 27 Respiratory Rate 20 Respiratory Rate 18 Blood Pressure 179/82 Blood Pressure 190/84 Blood Pressure 196/91 Blood Pressure 143/63 Blood Pressure 143/63 Blood Pressure 175/82 Blood Pressure 179/82 O2 Sat by Pulse Oximetry 91 O2 Sat by Pulse Oximetry 93 O2 Sat by Pulse Oximetry 94 O2 Sat by Pulse Oximetry 92 O2 Sat by Pulse Oximetry 92 O2 Sat by Pulse Oximetry 91 O2 Sat by Pulse Oximetry 93 O2 Sat by Pulse Oximetry 92 O2 Sat by Pulse Oximetry 91 O2 Sat by Pulse Oximetry 97 O2 Sat by Pulse Oximetry 96 Latest Lab Results: Laboratory Last Values WBC 6.5 X10^3/uL (3.6-10.0) 02/05/24 04:20 RBC 2.43 X10^6/uL (4.7-6.0) L 02/05/24 04:20 Hgb 7.8 g/dL (13.5-18.0) L 02/05/24 04:20 Hct 23.4 % (42.0-54.0) L 02/05/24 04:20 MCV 96.3 fL (80.0-100.0) 02/05/24 04:20 MCH 32.1 pg (27.0-34.0) 02/05/24 04:20 MCHC 33.4 g/dL (33.0-35.0) 02/05/24 04:20 RDW 16.3 % (11.6-16.5) 02/05/24 04:20 Plt Count 417 X10^3/uL (150.0-450.0) 02/05/24 04:20 Plt Count Comment Increased (ADEQUATE) 02/01/24 09:30 MPV 7.4 fL (7.4-11.0) 02/05/24 04:20 Neut % (Auto) 66.0 % (42.0-75.0) 02/05/24 04:20 Lymph % (Auto) 18.3 % (21.0-51.0) L 02/05/24 04:20 [place] % (Auto) 8.2 % (0.0-13.0) 02/05/24 04:20 Eos % (Auto) 6.6 % (0.9-2.9) H 02/05/24 04:20 Baso % (Auto) 0.9 % (0.2-1.0) 02/05/24 04:20 Neut # (Auto) 4.3 x10^3/uL (2.2-4.8) 02/05/24 04:20 Lymph # (Auto) 1.2 X10^3/uL (1.3-2.9) L 02/05/24 04:20 [place] # (Auto) 0.5 x10^3/uL (0.3-0.8) 02/05/24 04:20 Eos # (Auto) 0.4 x10^3/uL (0.0-0.2) H 02/05/24 04:20 Baso # (Auto) 0.1 X10^3/uL (0.0-0.1) 02/05/24 04:20 Absolute Nucleated RBC 0.0 /100WBC 02/05/24 04:20 Plt Morphology Comment Normal (NORMAL) 02/01/24 09:30 RBC Morphology Abnormal (NORMAL) 02/01/24 09:30 Macrocytosis 2+ A 02/01/24 09:30 Absolute Retic 0.0320 10^6/uL 02/05/24 04:20 Percent Retic 1.32 % (0.8-2.2) 02/05/24 04:20 Sample Site [facility] 02/04/24 10:42 ABG pH 7.440 (7.35-7.45) 02/04/24 10:42 ABG pCO2 44.0 mmHg (35.0-45.0) 02/04/24 10:42 ABG pO2 57.0 mmHg (80.0-100.0) L 02/04/24 10:42 ABG HCO3 29.9 mmol/L (22-26) H 02/04/24 10:42 ABG O2 Saturation 90.0 % (90-100) 02/04/24 10:42 ABG Base Excess 5.1 mmol/L (-2.0-2.0) H 02/04/24 10:42 James Test N/a 02/04/24 10:42 A-a Gradient 38.0 mmHg 02/04/24 10:42 FiO2 21.0 02/04/24 10:42 Blood Gas Comments Pt marina well elj 02/04/24 10:42 Sodium 141 mmol/L (136-145) 02/05/24 04:20 Corrected Sodium 142 mmol/L (136-145) 02/05/24 04:20 Potassium 4.4 mmol/L (3.5-5.1) 02/05/24 04:20 Chloride 106 mmol/L (98-107) 02/05/24 04:20 Carbon Dioxide 28.2 mmol/L (21-32) 02/05/24 04:20 BUN 17 mg/dL (7-18) 02/05/24 04:20 Creatinine 1.23 mg/dL (0.70-1.30) 02/05/24 04:20 Est GFR (MDRD) Af Amer > 60 (>60) 02/05/24 04:20 Est GFR (MDRD) Non-Af > 60 (>60) 02/05/24 04:20 Glucose 124 mg/dL (65-99) H 02/05/24 04:20 POC Glucose (mg/dL) 245 mg/dL (65-99) H 02/05/24 11:25 Lactic Acid 1.4 mmol/L (0.4-2.0) 02/01/24 16:20 Calcium 8.7 mg/dL (8.5-10.1) 02/05/24 04:20 Corrected Calcium 10.2 mg/dL (8.5-10.1) H 02/05/24 04:20 Iron 30 ug/dL (50-175) L 02/05/24 04:20 TIBC 204 ug/dL (250-450) L 02/05/24 04:20 Transferrin 159 mg/dL (202-364) L 02/05/24 04:20 Ferritin 241 ng/mL (26-388) 02/05/24 04:20 Total Bilirubin 0.20 mg/dL (0.2-1.0) 02/05/24 04:20 AST 16 Units/L (15-37) 02/05/24 04:20 ALT 28 Units/L (12-78) 02/05/24 04:20 Alkaline Phosphatase 141 Units/L (46-116) H 02/05/24 04:20 Creatine Kinase 192 Units/L (39-308) 02/02/24 04:30 Troponin I High Sens 8.2 ng/L (4.0-60.0) 02/01/24 21:35 B-Natriuretic Peptide 918 pg/mL (0-79) H 02/04/24 04:40 Total Protein 6.2 g/dL (6.4-8.2) L 02/05/24 04:20 Albumin 2.1 g/dL (3.4-5.0) L 02/05/24 04:20 Globulin 4.1 g/dL (2.5-4.5) 02/05/24 04:20 Albumin/Globulin Ratio 0.5 Ratio (1.1-2.1) L 02/05/24 04:20 Vitamin B12 562 pg/mL (193-986) 02/05/24 04:20 Folate 3.8 ng/mL (>8.6) L 02/05/24 04:20 Specimen Type Catherized urine 02/01/24 10:37 Urine Color Yellow (YELLOW) 02/01/24 10:37 Urine Appearance Clear (CLEAR) 02/01/24 10:37 Urine pH 5.0 (5.0 - 8.0) 02/01/24 10:37 Ur Specific [place] 1.025 (1.000-1.030) 02/01/24 10:37 Urine Protein 3+ (NEGATIVE) 02/01/24 10:37 Urine Glucose (UA) 4+ (NEGATIVE) 02/01/24 10:37 Urine Ketones 2+ (NEGATIVE) 02/01/24 10:37 Urine Blood Negative (NEGATIVE) 02/01/24 10:37 Urine Nitrite Negative (NEGATIVE) 02/01/24 10:37 Urine Bilirubin Negative (NEGATIVE) 02/01/24 10:37 Urine Urobilinogen Normal (NORMAL) 02/01/24 10:37 Ur Leukocyte Esterase Negative (NEGATIVE) 02/01/24 10:37 Urine RBC 0-2 /HPF (0-3) 02/01/24 10:37 Urine WBC 0-2 /HPF (0-5) 02/01/24 10:37 Ur Squamous Epith Cells Rare /HPF (NEGATIVE) 02/01/24 10:37 Amorphous Sediment 1+ /HPF (NEGATIVE) 02/01/24 10:37 Urine Bacteria Trace /HPF (NEGATIVE) 02/01/24 10:37 Hyaline Casts Few /LPF (NEGATIVE) 02/01/24 10:37 Ur Culture Indicated? No/not indicated 02/01/24 10:37 Urine Opiates Screen Positive (NEG=<300) 02/01/24 10:37 Urine Methadone Screen Negative (NEG=<300) 02/01/24 10:37 Acetaminophen 0.0 ug/mL (10-30) L 02/01/24 09:30 Ur Barbiturates Screen Negative (NEG=<200) 02/01/24 10:37 Ur Phencyclidine Scrn Negative (NEG=<25) 02/01/24 10:37 Ur Amphetamines Screen Negative (NEG=<1000) 02/01/24 10:37 U Benzodiazepines Scrn Positive (NEG=<200) 02/01/24 10:37 Urine Cocaine Screen Negative (NEG=<300) 02/01/24 10:37 U Marijuana (THC) Screen Negative (NEG=<50) 02/01/24 10:37 Ethyl Alcohol mg/dL < 3 mg/dL (0-19.9) 02/01/24 11:51 Acetone, Semi-Quant Negative (NEGATIVE) 02/02/24 04:30 Hospital Course: The patient is a 53 year old white male who was an ER admission after presenting via EMS after family members found him unresponsive at home. He has a past medical history of diabetes mellitus, CAD, hyperlipidemia, hypertension, lumbar spine surgery, and previous cardiac catherization approximately 2 years ago at [facility]. Family members reported history of alcohol abuse and medical non- compliance. ER workup revealed severe acidosis from DKA. ER treatment included 4 liters NS, regular insulin IV, and initiation of insulin drip per protocol. His pH was 7.0 and he was treated with multiple amps of bicarb. While in the ER, his temperature dropped to 90 degrees fahrenheit. He was admitted to the ICU for further workup and treatment. Upon admission, he was treated with IV abx, IV hydration, DKA protocol, supplemental o2. Inital labs showed wbc 12.2, hgb 7.5, plt 456, Na 134,carbon dioxide 11.7, BUN 67/creatinine 3.70, glucose 841, ast 63, alt 50, alk phos 230, albumin 2.9, Chest xray on 02/01/24 showed findings consistent with congestive heart failure. BNP was obtained and resulted 2320. On 02/02/24, morning labs showed wbc 15.4, hgb 7.7, plt 504, BUN 64/creatinine 3.01, glucose 104, Na 142, carbon dioxide 23. He had a ph of 4.4, PCO2 32, Bicarb up to 23.8, P02 86 with fi02 of 36.0. His acetone was negative. He was taken off insulin drip and started on basal insulin with sliding scale coverage. He did complain of generalized aches and pains, so his home medication of hydr ocodone was resumed. His chest xray showed "slight improvement in aeration of the lungs with decreasing pulmonary airspace involvement, residual pulmonary edema." 02/03/24 labs showed continued improvement. WBC 10.1, hgb 8.0, plt 490, Na 142, carbon dioxide 106, Bun 35/creatinine 1.67, glucose 134, ast 36, alt 41, alk phos 179, BNP 991, albumin 2.3. Chest xray showed "persistent vascular congestio n and edema pattern with little change or new abnormality noted. His blood pressure had increased, so home blood pressure medications were resumed. Echocardiogram was obtained. 02/04/24 labs: wbc 7.0, hgb 8.7, plt 479, Na 140, BUN 22/Creatinine 1.31, glucose 138, ast 23, alt 38, alk phos 176, bnp 918, albumin 2.5. ABG showed ph 7.4, pc02 44, p02 57, hco3 29.9, 02 sat 90, base excess 5.1, fi02 21.0. Since patient's overall condition was improving, we initiated bladder training to discontinue nicholas catheter and we are weening off supplemental 02. He did not previously require nicholas cath or supplemental o2 at home. Morning labs showed wbc 6.5, hgb 7.8, plt 417, Na 141, carbon dioxide 28.2, bun 17/creatinine , glucose 110, albumin 2.1, ast 16, alt 28, alk phos 141. We obtained an anemia panel- iron 30, tibc 204, transferrin 159, b12 562, folate 3.8, ferritin 241. Morning chest xray showed similar congestion and edema as previous study on 02/03/24. Patient states that he is feeling much improved. We will allow him to discharge home. We recommend him to have cardiac workup on outpatient basis. He will need to follow up with his PCP. He has an appointment scheduled with Vandana Thomason on 02/12/24 at 9:30AM. Please see discharge plan for list of discharge medications and modifications that we made, electronic medical record for diagnostic tests and labs. The patient was instructed to return to the ER if condition changed or worsened unexpectedly.
== END 2024-02-05 12:30 | disposition home or self-care (01) | DRG 638 ==
LOC: ER 09:18 → ICU 15:23
PROVIDERS: ADMIT Internal Medicine; ATTEND Internal Medicine
DX: E87.5 Hyperkalemia; R00.1 Bradycardia, unspecified; E87.1 Hypo-osmolality and hyponatremia; N17.8 Other acute kidney failure; I25.10 Atherosclerotic heart disease of native coronary artery without angina pectoris; F41.8 Other specified anxiety disorders; E11.10 Type 2 diabetes mellitus with ketoacidosis without coma; R06.02 Shortness of breath; E86.0 Dehydration; R26.89 Other abnormalities of gait and mobility; Z79.4 Long term (current) use of insulin; I11.0 Hypertensive heart disease with heart failure; I50.9 Heart failure, unspecified; E11.65 Type 2 diabetes mellitus with hyperglycemia; R41.82 Altered mental status, unspecified

== ENCOUNTER 2025-05-11 04:32 | Observation (INO) ==
--- NOTE | 2025-05-11 05:01 | DR.UPM ---
HPI Time Seen Time Seen by Provider: 05/11/25 05:01 PCP Primary Care Physician: alee HPI Comment HPI Comment: History as below. Complaint Chief Complaint Doctors Comments: Patient is 55yr old male in in ER with right flank pain and abdominal pain with nausea and vomiting that started today. He is complaining of generalized weakness and low blood glucose. He is a diabetic on insulin. Chief Complaint:: pt ambulated to room 3 pt complaint of rt flank pain and abd pain pt also complaint of vomiting and blood sugar dropping OTBS is 93 at this time COVID-19 Coronavirus risk:travel/contact w/high risk person: No Has patient experienced Coronavirus symptoms: No Reviewed Nurses Notes Reviewed: Yes Source History Provided: Patient Mode of Arrival Mode of Arrival: Ambulatory Timing Onset of Chief Complaint: 05/11/25 PMH PMH Past Medical History: Yes Past Medical History: CHF, Coronary Artery Disease, Diabetes, GERD, Hypertension, [place] and Renal Disease Past Surgical History: Yes Surgical History: Angioplasty/Stents and Other Past Surgical History Comment: back surgery Family History History of Family Medical Conditions: Yes Family Medical History: Diabetes Mellitus, Cancer, [place], Coronary Artery Disease, Heart Failure and Hypertension Social History Does patient currently use any type of tobacco product: Yes Have you used tobacco products in the last 12 months: Yes Type of Tobacco Use: Cigarettes Does any household member use tobacco: Yes Do you use any recreational Drugs:: No Lives With: Family Lives Where: Home Infectious screening In the last 2 months have you had wt loss of >10#?: NO Have you had fever, night sweats or hemotysis?: No Have you traveled outside the country in the last 6 months?: No Isolation: Standard ROS Review of Systems Constitutional: No Symptoms Reported and See HPI; negative Fever Eyes: No Symptoms Reported and See HPI ENTM: See HPI and Nose Congestion; negative Nose Discharge Respiratoy: See HPI, Moist Cough and Short of Breath Cardiovascular: No Symptoms Reported and See HPI; negative Chest Pain Gastrointestinal/Abdominal: Abdominal Pain, Nausea and Vomiting Genitourinary: No Symptoms Reported; negative Dysuria Neurological: No Symptoms Reported and See HPI; negative Headache or Dizziness Musculoskeletal: See HPI and Back Pain Integumentary: No Symptoms Reported and Other (edemalegs and feet.) Hematologic/Lymphatic: No Symptoms Reported and See HPI Endocrine: No Symptoms Reported Psychiatric: No Symptoms Reported All Other Systems: Reviewed and Negative PE Vital Signs Vitals: Vital Signs Temperature 98.1 F Pulse Rate 87 Respiratory Rate 18 Respiratory Rate 18 Blood Pressure 175/90 O2 Sat by Pulse Oximetry 99 General Limitations: No Limitations General Appearance: Alert and In No Apparent Distress Head Head Exam: Normal Inspection and Atraumatic Eyes Eye exam: Normal Appearance, PERRL and EOMI; negative Scleral Icterus or Conjunctival Injection ENT ENT Exam: Normal Exam, Normal Oropharynx, Normal External Ear Exam and TM's Normal Bilaterally Neck Neck Exam: Normal Inspection and Trachea Midline; negative Tenderness Chest Chest Inspection: Normal Inspection and Symmetric Chest Wall Rise; negative Tenderness Respiratory Respiratory Exam: Respiratory Distress; negative Accessory Muscle Use or Chest Wall Tenderness Respiratory Exam: Bilateral: Rhonchi Cardiovascular Cardiovascular Exam: Regular Rate, Normal Rhythm, Normal Heart Sounds and +S3; negative Systolic Murmur or Diastolic Murmur Abdominal Exam Abdominal Exam: Normal Bowel Sounds, Soft and Tenderness Abdominal Tenderness: Diffuse and Moderate Genitourinary Exam: Male: Deferred Extremities Extremities Exam: Edema (3 plus edema legs and feet.) Back Back Exam: Normal Inspection and Paraspinal Tenderness; negative (R) CVA Tenderness or (L) CVA Tenderness Neurologic Neurological Exam: Alert and Oriented X3; negative Motor Sensory Deficit Psychiatric Psychiatric Exam: Normal Affect and Normal Mood Skin Skin Exam: Warm MDM Differential Diagnosis Differential Diagnosis: Urolithiasis, UTI and Other (hypoglycemia. CHF, ) COURSE Treatment Treatment: See orders done while patient was in ER. Labs and CT discussed. Patient admitted to hospital for further management. Consultation Consultation Comments: discussed patient with Dr. Martínez. Education/Counseling Education/Counseling: Patient Educated On: Diagnosis ROR Labs Reviewed Laboratory Results Reviewed?: Yes 05/11/25 04:56 05/11/25 06:20 Laboratory: WBC 8.2 X10^3/uL (3.6-10.0) 05/11/25 04:56 RBC 3.62 X10^6/uL (4.7-6.0) L 05/11/25 04:56 Hgb 11.0 g/dL (13.5-18.0) L 05/11/25 04:56 Hct 31.9 % (42.0-54.0) L 05/11/25 04:56 MCV 88.0 fL (80.0-100.0) 05/11/25 04:56 MCH 30.3 pg (27.0-34.0) 05/11/25 04:56 MCHC 34.5 g/dL (33.0-35.0) 05/11/25 04:56 RDW 16.1 % (11.6-16.5) 05/11/25 04:56 Plt Count 429 X10^3/uL (150.0-450.0) 05/11/25 04:56 MPV 7.2 fL (7.4-11.0) L 05/11/25 04:56 Neut % (Auto) 58.6 % (42.0-75.0) 05/11/25 04:56 Lymph % (Auto) 22.4 % (21.0-51.0) 05/11/25 04:56 [place] % (Auto) 10.2 % (0.0-13.0) 05/11/25 04:56 Eos % (Auto) 6.8 % (0.9-2.9) H 05/11/25 04:56 Baso % (Auto) 2.0 % (0.2-1.0) H 05/11/25 04:56 Neut # (Auto) 4.8 x10^3/uL (2.2-4.8) 05/11/25 04:56 Lymph # (Auto) 1.8 X10^3/uL (1.3-2.9) 05/11/25 04:56 [place] # (Auto) 0.8 x10^3/uL (0.3-0.8) 05/11/25 04:56 Eos # (Auto) 0.6 x10^3/uL (0.0-0.2) H 05/11/25 04:56 Baso # (Auto) 0.2 X10^3/uL (0.0-0.1) H 05/11/25 04:56 Absolute Nucleated RBC 0.0 /100WBC 05/11/25 04:56 PT 12.8 SECONDS (11.8-14.3) 05/11/25 04:56 INR Target Range - 05/11/25 04:56 INR 0.96 (0.8-1.3) 05/11/25 04:56 APTT 30.8 SECONDS (22.9-36.5) 05/11/25 04:56 PTT Comment - 05/11/25 04:56 Sodium 129 mmol/L (136-145) L 05/11/25 04:56 Corrected Sodium TNP 05/11/25 04:56 Potassium 5.0 mmol/L (3.5-5.1) 05/11/25 04:56 Chloride 97 mmol/L (98-107) L 05/11/25 04:56 Carbon Dioxide 20.5 mmol/L (21-32) L 05/11/25 04:56 BUN 47 mg/dL (7-18) H 05/11/25 04:56 Creatinine 3.17 mg/dL (0.70-1.30) H 05/11/25 04:56 Est GFR (MDRD) Af Amer 27 (>60) L 05/11/25 04:56 Est GFR (MDRD) Non-Af 22 (>60) L 05/11/25 04:56 Glucose 47 mg/dL (65-99) L* 05/11/25 06:20 POC Glucose (mg/dL) 115 mg/dL (65-99) H 05/11/25 07:32 Calcium 8.7 mg/dL (8.5-10.1) 05/11/25 04:56 Corrected Calcium 10.0 mg/dL (8.5-10.1) 05/11/25 04:56 Total Bilirubin 0.20 mg/dL (0.2-1.0) 05/11/25 04:56 AST 15 Units/L (15-37) 05/11/25 04:56 ALT 17 Units/L (12-78) 05/11/25 04:56 Alkaline Phosphatase 128 Units/L (46-116) H 05/11/25 04:56 Troponin I High Sens 10.7 ng/L (4.0-60.0) 05/11/25 04:56 B-Natriuretic Peptide 592 pg/mL (0-79) H 05/11/25 04:56 Total Protein 7.7 g/dL (6.4-8.2) 05/11/25 04:56 Albumin 2.4 g/dL (3.4-5.0) L 05/11/25 04:56 Globulin 5.3 g/dL (2.5-4.5) H 05/11/25 04:56 Albumin/Globulin Ratio 0.5 Ratio (1.1-2.1) L 05/11/25 04:56 XRAY XRAY Interpreted by: Radiologist (Report noted.) and Self (Report noted.) Opioid Opioid Risk Tool Age (Rajinder box if 16-45): No History of Preadolescent Sexual Abuse: No Total: 0 Total Score Risk Category: Low Risk Copyright: Vahid GUERRA predicting aberrant behaviors Discharge Plan Diagnosis Discharge Problem: Abdominal pain, Hyponatremia, Hypoglycemia, CHF (congestive heart failure), Acute on chronic renal failure Discharge Plan Patient Disposition: ADMITTED INPATIENT Condition: Stable
[2025-05-11] MEDS: ZOFRAN INJ 4 MG VIAL IVP ONE (05:06)
[2025-05-11] MEDS: MORPHINE SULFATE INJ 4 MG IVP ONE (05:06)
--- NOTE | 2025-05-11 05:06 | EKG ---
Test Reason : abd pain hx of mi Blood Pressure : */* mmHG Vent. Rate : 88 BPM Atrial Rate : 88 BPM P-R Int : 122 ms QRS Dur : 82 ms QT Int : 372 ms P-R-T Axes : 36 3 82 degrees QTc Int : 450 ms Normal sinus rhythm Normal ECG When compared with ECG of 20-DEC-2024 15:18, No significant change was found Confirmed by Pierre Orona ([id number]) on 05/11/2025 7:15:42 AM Referred By: Confirmed By: Pierre Orona
[2025-05-11 05:12] LABS: BASOPHILS # (AUTO) 0.2 X10^3/uL (0.0-0.1); EOSINOPHILS # (AUTO) 0.6 x10^3/uL (0.0-0.2); EOSINOPHILS % (AUTO) 6.8 % (0.9-2.9); HEMATOCRIT 31.9 % (42.0-54.0); LYMPHOCYTES # (AUTO) 1.8 X10^3/uL (1.3-2.9); LYMPHOCYTES % (AUTO) 22.4 % (21.0-51.0); MEAN CORPUSCULAR HEMOGLOBIN 30.3 pg (27.0-34.0); MEAN CORPUSCULAR HGB CONC 34.5 g/dL (33.0-35.0); MEAN PLATELET VOLUME 7.2 fL (7.4-11.0); MONOCYTES # (AUTO) 0.8 x10^3/uL (0.3-0.8); MONOCYTES % (AUTO) 10.2 % (0.0-13.0); NEUTROPHILS # (AUTO) 4.8 x10^3/uL (2.2-4.8); NEUTROPHILS % (AUTO) 58.6 % (42.0-75.0); PLATELET COUNT 429 X10^3/uL (150.0-450.0); RED BLOOD COUNT 3.62 X10^6/uL (4.7-6.0); RED CELL DISTRIBUTION WIDTH 16.1 % (11.6-16.5); WHITE BLOOD COUNT 8.2 X10^3/uL (3.6-10.0)
[2025-05-11 05:15] LABS: INR 0.96 (0.8-1.3)
[2025-05-11 05:28] LABS: ALANINE AMINOTRANSFERASE 17 Units/L (12-78); ALBUMIN 2.4 g/dL (3.4-5.0); ALKALINE PHOSPHATASE 128 Units/L (46-116); ASPARTATE AMINO TRANSFERASE 15 Units/L (15-37); BLOOD UREA NITROGEN 47 mg/dL (7-18); CALCIUM 8.7 mg/dL (8.5-10.1); CARBON DIOXIDE 20.5 mmol/L (21-32); CHLORIDE 97 mmol/L (98-107); CREATININE 3.17 mg/dL (0.70-1.30); GLUCOSE 88 mg/dL (65-99); SODIUM 129 mmol/L (136-145); TOTAL PROTEIN 7.7 g/dL (6.4-8.2); eGFR NON BLACK RACES 22 (>60)
--- NOTE | 2025-05-11 05:37 | CT ---
EXAM: ABDOMEN/PELVIS W/O CON HISTORY: stone search; COMPARISON: 06/23/2018 TECHNIQUE: CT of the abdomen and pelvis obtained without IV contrast. Study limited due to lack of IV contrast. Dose reduction techniques including Automated Exposure Control (AEC) and adjustment of mA and kV were utilized. FINDINGS: The visualized portions of the lower thorax demonstrate no acute process. No acute osseous abnormality. Multilevel degenerative changes in the visualized spine. The liver, gallbladder, spleen, pancreas, bilateral adrenal glands, and bilateral kidneys demonstrate no acute process given lack of IV contrast. No evidence of bowel obstruction. The appendix is unremarkable. Moderate colonic fecal burden. The bladder is unremarkable. No free air or fluid. Nonaneurysmal aorta. Scattered vascular calcifications. IMPRESSION: No acute findings in the abdomen or pelvis. No renal or ureteral stones. No hydronephrosis. THIS IS AN ELECTRONICALLY VERIFIED FINAL REPORT 05/11/2025 5:33 AM - Electronically signed by Willian Lemons MD
[2025-05-11] MEDS: D50W ABBOJECT SYR IV ONE (06:20)
[2025-05-11] MEDS: D50W ABBOJECT SYR ONE (09:13)
[2025-05-11] MEDS: MORPHINE SULFATE INJ 4 MG ONE (09:14)
[2025-05-11] MEDS: ZOFRAN INJ 4 MG VIAL ONE (09:14)
[2025-05-11 09:40] VITALS: BMI 28.9
[2025-05-11] MEDS ORDERED: ZOFRAN INJ 4 MG VIAL IVP PRN (10:08)
--- NOTE | 2025-05-11 10:15 | DR.H&P ---
H&P History & Physical for Day of: H&P Date: 05/11/25 Chief Complaint Chief Complaint: abdominal pain, hypoglycemia History of Present Illness History of Present Illness: Mr Fontanez is a 55-year-old male with a past medical history of type 2 diabetes, CHF, CAD, GERD, hypertension, CKD presented with nausea, vomiting and abdominal pain. He states his symptoms started yesterday mop maker. He noticed that his glucose dropped last night to 37 so he decided to come to the hospital. He has always had elevated glucose. He states he took his insulin yesterday afternoon. He did eat a salad and went to sleep. He denies having any fever or chills. Denies diarrhea. In the ER, initially his glucose was 93 and then did drop to 37. He was treated with D50. His most recent glucose is 126. Creatinine is 3.17, BNP 592. CTAP was negative for any acute changes. He was admitted for further management. Labs/imaging reviewed: - WBC 8.2 hemoglobin 11 sodium 129 potassium 5 creatinine 3.17 glucose 126 CTAP reviewed: No acute change Plan: Admit to ICU for closer monitoring, start NS at 75cc/hr. Replace electrolytes as per protocol. Resume home meds as appropriate. Monitor glucose. Start clear liquid diet. Add Protonix. Add Zofran as needed. Monitor a.m. labs and imaging. Time spent for clinical assessment, reviewing labs/imaging, physical exam, decision making and documentation greater than 45 mins. Past Medical History Past Medical History: CHF, Coronary Artery Disease, Diabetes, GERD, Hypertension, [place] and Renal Disease Past Surgical History Surgical History: Angioplasty/Stents and Other Family History Family Medical History: Diabetes Mellitus, Cancer, [place], Coronary Artery Disease, Heart Failure and Hypertension Social History Does patient currently use any type of tobacco product: Yes Have you used tobacco products in the last 12 months: Yes Type of Tobacco Use: Cigarettes How many years tobacco product used: 35 Does any household member use tobacco: Yes Alcohol Use: DAILY Medications Home Medications: Home Medications Medication Instructions Recorded Confirmed Type alprazolam 1 mg tablet 1 mg PO BID PRN 02/01/24 History amlodipine 10 mg tablet 10 mg PO QDAY 02/01/2412/20 History atorvastatin 40 mg tablet 40 mg PO QDAY 02/01/2412/20 History carvedilol 25 mg tablet 25 mg PO BID 02/01/24 History furosemide 20 mg tablet 20 mg PO QDAY 02/01/2412/20 History hydrocodone 10 mg-acetaminophen 1 tab PO BID PRN 01/3112/20/24 History 325 mg tablet lisinopril 40 mg tablet 40 mg PO QDAY 02/01/2412/20 History promethazine 12.5 mg tablet 12.5 mg PO BID 02/01/24 History insulin human U-100 NPH-regulr 15 unit subcut BID PRN 08/18/24 12/20/24 History 70-30 mix 100 unit/mL subcutaneous susp (Novolin 70/30 U-100 Insulin) chlordiazepoxide HCl 5 mg capsule 5 mg PO 12/20/24 Hi [place] potassium chloride 10 mEq 10 meq PO BID 12/20/2412/20 History capsule,extended release temazepam 30 mg capsule 30 mg PO QDAY 12/20/2412/20 History Allergies Allergies Allergy/AdvReac Type Severity Reaction Status Date / Time No Known Drug Allergies Allergy Verified 12/20/24 12:46 Labs 05/11/25 04:56 05/11/25 06:20 Labs: Laboratory WBC 8.2 X10^3/uL (3.6-10.0) 05/11/25 04:56 RBC 3.62 X10^6/uL (4.7-6.0) L 05/11/25 04:56 Hgb 11.0 g/dL (13.5-18.0) L 05/11/25 04:56 Hct 31.9 % (42.0-54.0) L 05/11/25 04:56 MCV 88.0 fL (80.0-100.0) 05/11/25 04:56 MCH 30.3 pg (27.0-34.0) 05/11/25 04:56 MCHC 34.5 g/dL (33.0-35.0) 05/11/25 04:56 RDW 16.1 % (11.6-16.5) 05/11/25 04:56 Plt Count 429 X10^3/uL (150.0-450.0) 05/11/25 04:56 MPV 7.2 fL (7.4-11.0) L 05/11/25 04:56 Neut % (Auto) 58.6 % (42.0-75.0) 05/11/25 04:56 Lymph % (Auto) 22.4 % (21.0-51.0) 05/11/25 04:56 [place] % (Auto) 10.2 % (0.0-13.0) 05/11/25 04:56 Eos % (Auto) 6.8 % (0.9-2.9) H 05/11/25 04:56 Baso % (Auto) 2.0 % (0.2-1.0) H 05/11/25 04:56 Neut # (Auto) 4.8 x10^3/uL (2.2-4.8) 05/11/25 04:56 Lymph # (Auto) 1.8 X10^3/uL (1.3-2.9) 05/11/25 04:56 [place] # (Auto) 0.8 x10^3/uL (0.3-0.8) 05/11/25 04:56 Eos # (Auto) 0.6 x10^3/uL (0.0-0.2) H 05/11/25 04:56 Baso # (Auto) 0.2 X10^3/uL (0.0-0.1) H 05/11/25 04:56 Absolute Nucleated RBC 0.0 /100WBC 05/11/25 04:56 PT 12.8 SECONDS (11.8-14.3) 05/11/25 04:56 INR Target Range - 05/11/25 04:56 INR 0.96 (0.8-1.3) 05/11/25 04:56 APTT 30.8 SECONDS (22.9-36.5) 05/11/25 04:56 PTT Comment - 05/11/25 04:56 Sodium 129 mmol/L (136-145) L 05/11/25 04:56 Corrected Sodium TNP 05/11/25 04:56 Potassium 5.0 mmol/L (3.5-5.1) 05/11/25 04:56 Chloride 97 mmol/L (98-107) L 05/11/25 04:56 Carbon Dioxide 20.5 mmol/L (21-32) L 05/11/25 04:56 BUN 47 mg/dL (7-18) H 05/11/25 04:56 Creatinine 3.17 mg/dL (0.70-1.30) H 05/11/25 04:56 Est GFR (MDRD) Af Amer 27 (>60) L 05/11/25 04:56 Est GFR (MDRD) Non-Af 22 (>60) L 05/11/25 04:56 Glucose 47 mg/dL (65-99) L* 05/11/25 06:20 POC Glucose (mg/dL) 126 mg/dL (65-99) H 05/11/25 08:25 Calcium 8.7 mg/dL (8.5-10.1) 05/11/25 04:56 Corrected Calcium 10.0 mg/dL (8.5-10.1) 05/11/25 04:56 Total Bilirubin 0.20 mg/dL (0.2-1.0) 05/11/25 04:56 AST 15 Units/L (15-37) 05/11/25 04:56 ALT 17 Units/L (12-78) 05/11/25 04:56 Alkaline Phosphatase 128 Units/L (46-116) H 05/11/25 04:56 Troponin I High Sens 10.7 ng/L (4.0-60.0) 05/11/25 04:56 B-Natriuretic Peptide 592 pg/mL (0-79) H 05/11/25 04:56 Total Protein 7.7 g/dL (6.4-8.2) 05/11/25 04:56 Albumin 2.4 g/dL (3.4-5.0) L 05/11/25 04:56 Globulin 5.3 g/dL (2.5-4.5) H 05/11/25 04:56 Albumin/Globulin Ratio 0.5 Ratio (1.1-2.1) L 05/11/25 04:56 Review of Systems Constitutional: Weakness Eyes: No Symptoms Reported ENT: No Symptoms Reported Respiratory: No Symptoms Reported Cardiovascular: Edema Gastrointestinal: Nausea, Vomiting and Abdominal Pain Genitourinary: No Symptoms Reported Musculoskeletal: No Symptoms Reported Skin: No Symptoms Reported Neurological: No Symptoms Reported Physical Exam Vital Signs: Vital Signs Temperature 98.1 F Pulse Rate 87 Respiratory Rate 18 Respiratory Rate 18 Respiratory Rate 18 Blood Pressure 175/90 O2 Sat by Pulse Oximetry 99 Oriented: Normal Respiratory: Diminished Throughout Cardiovascular: Normal and Edema Auscultation: Bowel Sounds: Normal Tenderness: RUQ, Epigastric and Mild Skin: Normal Musculoskeletal: Normal Psychiatric: Normal Mood Description: Calm Affect: Normal Speech Pattern: Clear and Appropriate Assessment/Plan (1) Acute dehydration: Status: Acute (2) Hypoglycemia: Status: Deleted (3) ILYA (acute kidney injury): Status: Acute (4) Abdominal pain: Qualifiers: Abdominal location: unspecified location Qualified Code(s): R10.9 - Unspecified abdominal pain Status: Acute (5) Nausea & vomiting: Qualifiers: Vomiting type: unspecified Qualified Code(s): R11.2 - Nausea with vomiting, unspecified Status: Acute (6) Hyponatremia: Status: Acute Review H&P Reviewed: Yes Patient was examined?: Yes
[2025-05-11] MEDS: NS 1,000 ML IV 1,000 ML IV SCH (10:36)
[2025-05-11] MEDS: PROTONIX INJ 40 MG VIAL IVP SCH (10:36)
[2025-05-11] MEDS: NS 1,000 ML IV 1,000 ML ONE (10:45)
[2025-05-11] MEDS: NORVASC TAB 10 MG PO SCH (12:05)
[2025-05-11 12:44] LABS: BILIRUBIN,URINE NEGATIVE (NEGATIVE); BLOOD/HEMOGLOBIN,URINE 1+ (NEGATIVE); GLUCOSE, URINE 1+ (NEGATIVE); KETONES,URINE NEGATIVE (NEGATIVE); LEUKOCYTE ESTERASE ,URINE NEGATIVE (NEGATIVE); NITRITES,URINE NEGATIVE (NEGATIVE); PROTEIN,URINE 3+ (NEGATIVE); UROBILINOGEN,URINE NORMAL (NORMAL)
[2025-05-11 12:45] LABS: APPEARANCE,URINE CLEAR (CLEAR); COLOR,URINE STRAW (YELLOW)
[2025-05-11 12:51] LABS: BACTERIA,URINE NEGATIVE /HPF (NEGATIVE); RBC,URINE 0-2 /HPF (0-3); SQUAMOUS EPITHELIAL CELL,UR RARE /HPF (NEGATIVE)
[2025-05-11] MEDS: NORCO 10/325 TAB PO PRN (18:36)
[2025-05-11] MEDS: COREG TAB 25 MG PO SCH (20:10)
[2025-05-11] MEDS: LIPITOR TAB 40 MG PO SCH (20:10)
[2025-05-11] MEDS: SNACK - Diabetic Appropriate PO SCH (20:13)
[2025-05-11] MEDS: RESTORIL CAP 15 MG PO SCH (22:00)
[2025-05-11] MEDS: ALPRAZOLAM ODT PO PRN (22:00)
--- NOTE | 2025-05-11 23:46 | RAD ---
EXAM: CHEST, 1 VIEW HISTORY: mid upper abd pain ; COMPARISON: 11/12/2024 FINDINGS: The trachea is midline. The cardiac silhouette is unremarkable . The lungs are clear without focal infiltrate or effusion. The bony thorax is unremarkable. IMPRESSION: Normal chest THIS IS AN ELECTRONICALLY VERIFIED FINAL REPORT 05/11/2025 11:43 PM - Electronically signed by Andre Patel MD
[2025-05-12 05:28] LABS: BASOPHILS # (AUTO) 0.2 X10^3/uL (0.0-0.1); BASOPHILS % (AUTO) 2.5 % (0.2-1.0); EOSINOPHILS # (AUTO) 0.3 x10^3/uL (0.0-0.2); EOSINOPHILS % (AUTO) 5.4 % (0.9-2.9); HEMATOCRIT 29.8 % (42.0-54.0); LYMPHOCYTES # (AUTO) 1.9 X10^3/uL (1.3-2.9); LYMPHOCYTES % (AUTO) 31.1 % (21.0-51.0); MEAN CORPUSCULAR HEMOGLOBIN 30.2 pg (27.0-34.0); MEAN CORPUSCULAR HGB CONC 33.5 g/dL (33.0-35.0); MEAN CORPUSCULAR VOLUME 90.1 fL (80.0-100.0); MONOCYTES # (AUTO) 0.5 x10^3/uL (0.3-0.8); MONOCYTES % (AUTO) 8.3 % (0.0-13.0); NEUTROPHILS # (AUTO) 3.2 x10^3/uL (2.2-4.8); NEUTROPHILS % (AUTO) 52.7 % (42.0-75.0); PLATELET COUNT 394 X10^3/uL (150.0-450.0); RED CELL DISTRIBUTION WIDTH 16.2 % (11.6-16.5); WHITE BLOOD COUNT 6.1 X10^3/uL (3.6-10.0)
[2025-05-12 05:40] LABS: ALBUMIN 1.8 g/dL (3.4-5.0); CALCIUM 8.3 mg/dL (8.5-10.1); CARBON DIOXIDE 22.2 mmol/L (21-32); COR CA(FOR HYPOALB) 10.1 mg/dL (8.5-10.1); CREATININE 2.89 mg/dL (0.70-1.30); TOTAL PROTEIN 7.3 g/dL (6.4-8.2)
[2025-05-12 05:41] LABS: POTASSIUM 5.4 mmol/L (3.5-5.1)
[2025-05-12] MEDS: NovoLIN R (or HumuLIN R) SUBCUT PRN (05:41)
[2025-05-12] MEDS: LASIX PO SCH (08:24)
[2025-05-12 09:45] VITALS: O2SAT 96
[2025-05-12] MEDS: KAYEXALATE SUSP PO NR (09:57)
[2025-05-12 12:59] VITALS: BP 116/58; PULSE 75
[2025-05-12 14:32] VITALS: RESP 20
[2025-05-12 16:10] VITALS: TEMP 98.8
--- NOTE | 2025-05-17 09:50 | W.DIS.FURT ---
Summary of Discharge Discharge Summary of Date Date of Exam: 05/12/25 Admission Date Date of Admission: 05/11/25 Admission Diagnosis Patient Problems (Updated 05/11/25 @ 23:07 by GLADYS DE OLIVEIRA) Acute on chronic renal failure (Acute) N17.9, N18.9 CHF (congestive heart failure) (Acute) I50.9 Hypoglycemia (Acute) E16.2 Hyponatremia (Acute) E87.1 Abdominal pain (Acute) R10.9 Hospital Course: Mr Fontanez is a 55-year-old male with a past medical history of type 2 diabetes, CHF, CAD, GERD, hypertension, CKD presented with nausea, vomiting and abdominal pain. 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 He noticed that his glucose dropped last night to 37 so he decided to come to the hospital. He has always had elevated glucose. He states he took his insulin yesterday afternoon. He did eat a salad and went to sleep. He denies having any fever or chills. Denies diarrhea. In the ER, initially his glucose was 93 and then did drop to 37. He was treated with D50. His most recent glucose is 126. Creatinine is 3.17, BNP 592. CTAP was negative for any acute changes. He was admitted for further management. He was monitored in the ICU. He was started on hydration. His labs were monitored daily and electrolytes replace as needed. He was started on IV Protonix and Zofran as needed. His diet was slowly advanced as tolerated. He did not have any further hypoglycemic episodes. Patient states he does not recall how much insulin he took prior to coming to the hospital. He states he might of taken it twice. Patient was educated about proper administration of insulin. He was feeling better and tolerating p.o. intake. He was stable to be discharged home. He will follow-up with PCP as scheduled. Vital Signs: Vital Signs (72 hours) 05/11/25 04:33 05/11/25 05:06 05/11/25 06:30 Temperature 98.1 F Pulse Rate 87 Respiratory Rate 18 18 Blood Pressure 175/90 135/70 O2 Sat by Pulse Oximetry 99 Oxygen Delivery Method Room Air 05/11/25 07:00 05/11/25 07:00 05/11/25 07:30 Temperature Pulse Rate Respiratory Rate Blood Pressure 142/71 142/71 127/69 O2 Sat by Pulse Oximetry Oxygen Delivery Method 05/11/25 08:00 05/11/25 08:00 05/11/25 08:00 Temperature Pulse Rate Respiratory Rate Blood Pressure 144/71 144/71 144/71 O2 Sat by Pulse Oximetry Oxygen Delivery Method 05/11/25 08:30 05/11/25 08:46 05/11/25 08:50 Temperature Pulse Rate Respiratory Rate 18 Blood Pressure 148/70 O2 Sat by Pulse Oximetry Oxygen Delivery Method Room Air 05/11/25 08:51 05/11/25 09:00 05/11/25 09:09 Temperature Pulse Rate 82 Respiratory Rate Blood Pressure 164/82 O2 Sat by Pulse Oximetry 97 Oxygen Delivery Method Room Air 05/11/25 10:00 05/11/25 11:00 05/11/25 12:00 Temperature 99.0 F Pulse Rate 75 76 83 Respiratory Rate Blood Pressure O2 Sat by Pulse Oximetry 96 98 99 Oxygen Delivery Method 05/11/25 12:51 05/11/25 12:51 05/11/25 13:00 Temperature Pulse Rate 76 73 Respiratory Rate Blood Pressure 147/79 O2 Sat by Pulse Oximetry 95 96 Oxygen Delivery Method 05/11/25 14:00 05/11/25 15:00 05/11/25 15:37 Temperature Pulse Rate 75 78 Respiratory Rate Blood Pressure 139/70 O2 Sat by Pulse Oximetry 95 94 L Oxygen Delivery Method 05/11/25 15:37 05/11/25 16:00 05/11/25 16:00 Temperature 98.9 F Pulse Rate 87 81 Respiratory Rate Blood Pressure 131/61 O2 Sat by Pulse Oximetry 95 91 L Oxygen Delivery Method 05/11/25 18:36 05/11/25 18:55 05/11/25 19:00 Temperature Pulse Rate 88 Respiratory Rate 20 19 Blood Pressure 147/70 O2 Sat by Pulse Oximetry 92 L Oxygen Delivery Method Room Air Room Air 05/11/25 19:36 05/11/25 20:00 05/11/25 20:45 Temperature 99.3 F Pulse Rate 86 Respiratory Rate 16 17 Blood Pressure 154/72 O2 Sat by Pulse Oximetry 94 L Oxygen Delivery Method Room Air Room Air 05/11/25 22:00 05/12/25 00:00 05/12/25 02:00 Temperature 99.1 F Pulse Rate 77 72 69 Respiratory Rate 15 19 19 Blood Pressure 117/80 120/60 133/65 O2 Sat by Pulse Oximetry 95 92 L 94 L Oxygen Delivery Method Room Air Room Air Room Air 05/12/25 04:00 05/12/25 06:00 05/12/25 06:19 Temperature 99.0 F Pulse Rate 71 86 Respiratory Rate 19 16 16 Blood Pressure 146/71 168/81 O2 Sat by Pulse Oximetry 95 99 Oxygen Delivery Method Room Air Room Air 05/12/25 07:00 05/12/25 07:19 05/12/25 08:00 Temperature 99.3 F Pulse Rate 76 Respiratory Rate 20 20 Blood Pressure 163/75 O2 Sat by Pulse Oximetry 96 Oxygen Delivery Method Room Air Room Air 05/12/25 12:00 05/12/25 14:29 05/12/25 15:29 Temperature 97.7 F Pulse Rate 75 Respiratory Rate 17 20 20 Blood Pressure 116/58 O2 Sat by Pulse Oximetry 96 Oxygen Delivery Method Room Air 05/12/25 16:00 Temperature 98.8 F Pulse Rate Respiratory Rate Blood Pressure O2 Sat by Pulse Oximetry Oxygen Delivery Method Labs: Laboratory Last Values WBC 6.1 X10^3/uL (3.6-10.0) 05/12/25 04:32 RBC 3.30 X10^6/uL (4.7-6.0) L 05/12/25 04:32 Hgb 10.0 g/dL (13.5-18.0) L 05/12/25 04:32 Hct 29.8 % (42.0-54.0) L 05/12/25 04:32 MCV 90.1 fL (80.0-100.0) 05/12/25 04:32 MCH 30.2 pg (27.0-34.0) 05/12/25 04:32 MCHC 33.5 g/dL (33.0-35.0) 05/12/25 04:32 RDW 16.2 % (11.6-16.5) 05/12/25 04:32 Plt Count 394 X10^3/uL (150.0-450.0) 05/12/25 04:32 MPV 8.0 fL (7.4-11.0) 05/12/25 04:32 Neut % (Auto) 52.7 % (42.0-75.0) 05/12/25 04:32 Lymph % (Auto) 31.1 % (21.0-51.0) 05/12/25 04:32 [place] % (Auto) 8.3 % (0.0-13.0) 05/12/25 04:32 Eos % (Auto) 5.4 % (0.9-2.9) H 05/12/25 04:32 Baso % (Auto) 2.5 % (0.2-1.0) H 05/12/25 04:32 Neut # (Auto) 3.2 x10^3/uL (2.2-4.8) 05/12/25 04:32 Lymph # (Auto) 1.9 X10^3/uL (1.3-2.9) 05/12/25 04:32 [place] # (Auto) 0.5 x10^3/uL (0.3-0.8) 05/12/25 04:32 Eos # (Auto) 0.3 x10^3/uL (0.0-0.2) H 05/12/25 04:32 Baso # (Auto) 0.2 X10^3/uL (0.0-0.1) H 05/12/25 04:32 Absolute Nucleated RBC 0.0 /100WBC 05/12/25 04:32 PT 12.8 SECONDS (11.8-14.3) 05/11/25 04:56 INR Target Range - 05/11/25 04:56 INR 0.96 (0.8-1.3) 05/11/25 04:56 APTT 30.8 SECONDS (22.9-36.5) 05/11/25 04:56 PTT Comment - 05/11/25 04:56 Sodium 133 mmol/L (136-145) L 05/12/25 04:32 Corrected Sodium 140 mmol/L (136-145) 05/12/25 04:32 Potassium 5.4 mmol/L (3.5-5.1) H 05/12/25 04:32 Chloride 103 mmol/L (98-107) 05/12/25 04:32 Carbon Dioxide 22.2 mmol/L (21-32) 05/12/25 04:32 BUN 40 mg/dL (7-18) H 05/12/25 04:32 Creatinine 2.89 mg/dL (0.70-1.30) H 05/12/25 04:32 Est GFR (MDRD) Af Amer 30 (>60) L 05/12/25 04:32 Est GFR (MDRD) Non-Af 24 (>60) L 05/12/25 04:32 Glucose 403 mg/dL (65-99) H 05/12/25 04:32 POC Glucose (mg/dL) 404 mg/dL (65-99) H 05/12/25 15:49 Calcium 8.3 mg/dL (8.5-10.1) L 05/12/25 04:32 Corrected Calcium 10.1 mg/dL (8.5-10.1) 05/12/25 04:32 Magnesium 2.0 mg/dL (2.0-2.9) 05/12/25 04:32 Total Bilirubin 0.20 mg/dL (0.2-1.0) 05/12/25 04:32 AST 7 Units/L (15-37) L 05/12/25 04:32 ALT 13 Units/L (12-78) 05/12/25 04:32 Alkaline Phosphatase 109 Units/L (46-116) 05/12/25 04:32 Troponin I High Sens 7.9 ng/L (4.0-60.0) 05/11/25 17:28 B-Natriuretic Peptide 592 pg/mL (0-79) H 05/11/25 04:56 Total Protein 7.3 g/dL (6.4-8.2) 05/12/25 04:32 Albumin 1.8 g/dL (3.4-5.0) L 05/12/25 04:32 Globulin 5.5 g/dL (2.5-4.5) H 05/12/25 04:32 Albumin/Globulin Ratio 0.3 Ratio (1.1-2.1) L 05/12/25 04:32 Specimen Type Clean catch urine 05/11/25 12:25 Urine Color Straw (YELLOW) 05/11/25 12:25 Urine Appearance Clear (CLEAR) 05/11/25 12:25 Urine pH 6.0 (5.0 - 8.0) 05/11/25 12:25 Ur Specific [place] 1.015 (1.000-1.030) 05/11/25 12:25 Urine Protein 3+ (NEGATIVE) 05/11/25 12:25 Urine Glucose (UA) 1+ (NEGATIVE) 05/11/25 12:25 Urine Ketones Negative (NEGATIVE) 05/11/25 12:25 Urine Blood 1+ (NEGATIVE) 05/11/25 12:25 Urine Nitrite Negative (NEGATIVE) 05/11/25 12:25 Urine Bilirubin Negative (NEGATIVE) 05/11/25 12:25 Urine Urobilinogen Normal (NORMAL) 05/11/25 12:25 Ur Leukocyte Esterase Negative (NEGATIVE) 05/11/25 12:25 Urine RBC 0-2 /HPF (0-3) 05/11/25 12:25 Urine WBC None seen /HPF (0-5) 05/11/25 12:25 Ur Squamous Epith Cells Rare /HPF (NEGATIVE) 05/11/25 12:25 Urine Bacteria Negative /HPF (NEGATIVE) 05/11/25 12:25 Ur Culture Indicated? No/not indicated 05/11/25 12:25 Reason For Visit: ABD PAIN, HYPOGLYCEMIA, CHF Discharge Diagnosis All Active Problems (Updated 05/11/25 @ 23:07 by GLADYS DE OLIVEIRA) Acute on chronic renal failure (Acute) CHF (congestive heart failure) (Acute) Hypoglycemia (Acute) ILYA (acute kidney injury) (Acute) New onset seizure without head trauma (Acute) Hypoglycemia associated with diabetes (Acute) Low back pain (Acute) Acute dehydration (Acute) Hypertension (Chronic) Diabetes mellitus (Chronic) Generalized anxiety disorder (Chronic) Hyponatremia (Acute) Abdominal pain (Acute) Nausea & vomiting (Acute) Insulin dependent diabetes mellitus (Acute) Non Q wave myocardial infarction (Acute) Plan of Treatment: Continue with present treatment and follow up plan. Pt is to keep follow up appointment as instructed and take medications as ordered. Discharge Medications Discharge Medications: No Known Drug Allergies Allergy (Verified 12/20/24 12:46) CONTINUE taking the following medications amlodipine 10 mg tablet 10 mg PO QDAY 05/11/25 [History] Discharge Disposition Assessment: No distress noted. Discharge Disposition: home Discharge Condition: stable Discharge Plan Discharge Plan Hospital Course: Mr Fontanez is a 55-year-old male with a past medical history of type 2 diabetes, CHF, CAD, GERD, hypertension, CKD presented with nausea, vomiting and abdominal pain. 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 He noticed that his glucose dropped last night to 37 so he decided to come to the hospital. He has always had elevated glucose. He states he took his insulin yesterday afternoon. He did eat a salad and went to sleep. He denies having any fever or chills. Denies diarrhea. In the ER, initially his glucose was 93 and then did drop to 37. He was treated with D50. His most recent glucose is 126. Creatinine is 3.17, BNP 592. CTAP was negative for any acute changes. He was admitted for further management. He was monitored in the ICU. He was started on hydration. His labs were monitored daily and electrolytes replace as needed. He was started on IV Protonix and Zofran as needed. His diet was slowly advanced as tolerated. He did not have any further hypoglycemic episodes. Patient states he does not recall how much insulin he took prior to coming to the hospital. He states he might of taken it twice. Patient was educated about proper administration of insulin. He was feeling better and tolerating p.o. intake. He was stable to be discharged home. He will follow-up with PCP as scheduled. Patient Disposition: 01 HOME, SELF-CARE Condition: Stable Health Concerns: Post Hospitalization: new medications and changes needed to prevent readmission or further decline. Pt educated and given instructions on all concerns. Care Plan Goals: Problem: Fluid Volume Deficit Goal: Maintain/Improved Adequate hydration. Instructions: Follow provided instructions. Follow up with primary physician as directed. Contact primary care physician or report to the closest Emergency Room if condition worsens. Plan of Treatment: Continue with present treatment and follow up plan. Pt is to keep follow up ap pointment as instructed and take medications as ordered. Assessment: No distress noted. Prescription drug monitoring program results: PDMP reviewed and no concerns identified Prescriptions: Continued Novolin 70/30 U-100 Insulin 100 unit/mL (70-30) suspension 15 unit SUBCUT BID PRN Patient Comments: [NO ORIGINAL SIG] temazepam 30 mg capsule 30 mg PO HS amlodipine 10 mg tablet 10 mg PO QDAY atorvastatin 40 mg tablet 40 mg PO QDAY carvedilol 25 mg tablet 25 mg PO BID alprazolam 1 mg tablet 1 mg PO BID PRN promethazine 12.5 mg tablet 12.5 mg PO BID PRN hydrocodone-acetaminophen 10-325 mg tablet 1 tab PO BID PRN furosemide 20 mg tablet 20 mg PO QDAY lisinopril 40 mg tablet 40 mg PO QDAY Discontinued potassium chloride 10 mEq capsule, extended release 10 meq PO BID Orders to Discharge Patient Discharge Orders: Discharge (Routine); Ordered 05/12/25 Ordered By: Chayito Lazar Follow ups/Referrals Follow ups/Referrals: JUANITA ADDISON [Primary Care Provider, Unknown] - 05/19/25 9:30 am Instructions Instructions: Acute Kidney Injury, Adult, Health Risks of Smoking, Blood Glucose Monitoring, Adult Stand Alone Forms: Find Help Web Site, Post Hospital Follow Up Care Print Language: SAUDI ARABIAN
== END 2025-05-12 16:10 | disposition home or self-care (01) ==
LOC: ER 04:32 → ICU 04:32
PROVIDERS: ADMIT Family Medicine; ATTEND Family Medicine
DX: I13.0 Hypertensive heart and chronic kidney disease with heart failure and stage 1 through stage 4 chronic kidney disease, or unspecified chronic kidney disease; R11.2 Nausea with vomiting, unspecified; K21.9 Gastro-esophageal reflux disease without esophagitis; Z72.0 Tobacco use; R94.4 Abnormal results of kidney function studies; E87.1 Hypo-osmolality and hyponatremia; R53.1 Weakness; E86.0 Dehydration; R10.84 Generalized abdominal pain; N17.8 Other acute kidney failure; E11.649 Type 2 diabetes mellitus with hypoglycemia without coma; I25.10 Atherosclerotic heart disease of native coronary artery without angina pectoris; Z59.86 Financial insecurity; N18.9 Chronic kidney disease, unspecified; I25.2 Old myocardial infarction; I50.9 Heart failure, unspecified; Z79.4 Long term (current) use of insulin